=== PATIENT | male | born 1960 | race Caucasian/White ===

== ENCOUNTER 2017-12-23 19:13 | Emergency (ER) | payer OTHER, SELFPAY ==
[2017-12-23 19:20] VITALS: BP 152/80; PULSE 64; RESP 20; TEMP 36.4; O2SAT 100; BMI 27.1
--- NOTE | 2017-12-23 19:23 | ED_ITS ---
HPI - General Adult <KATERINA Condon - Last Filed: 12/23/17 22:36> General Chief complaint: Extremity Problem,Nontraumatic Stated complaint: Cramping, high blood sugar Time Seen by Provider: 12/23/17 19:19 History of Present Illness HPI narrative: 57-year-old male brought in by EMS due to having cramping to all 4 of his extremities earlier today. 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 Today he said they was a hard day at work. On route his cramping subsided. He denies any shortness of breath or chest pain. Patient states he actually feels better at this timeframe. He denies any other concerns or complaints other than have the cramping. He states he did have some water earlier today however he did not drink much fluid today. Related Data Previous Rx's Medication Instructions Recorded Glucose: Home Monitoring Kit 0 kit QID #1 ea 04/30/16 metformin [Glucophage] 500 mg PO BIDCC #60 tab 02/27/17 lisinopril 5 mg PO Q DAY #90 tab 04/02/17 Glucose: Test Strips 0 str #200 str 08/07/17 levofloxacin 750 mg PO QDAY #7 tab 08/11/17 levofloxacin 750 mg PO QDAY #5 tab 08/13/17 gabapentin [Neurontin] 300 - 600 mg PO BID #180 cap 08/20/17 levothyroxine 0.175 mg PO QAM #90 tab 08/24/17 insulin glargine [Lantus Solostar 45 unit SQ QDAY #1 syr 08/28/17 U-100 Insulin] [place] / SQ TID #1 09/15/17 insulin lispro [Humalog U-100 4 - 10 u SQ QID #1 box 10/07/17 Insulin] sertraline 100 mg PO QDAY #90 tab 10/21/17 simvastatin [Zocor] 20 mg PO HS #90 tab 10/22/17 gabapentin [Neurontin] 300 - 600 mg PO BID #180 cap 11/10/17 Allergies Allergy/AdvReac Type Severity Reaction Status Date / Time No Known Drug Allergies Allergy Verified 12/23/17 19:23 Review of Systems <KATERINA Condon - Last Filed: 12/23/17 22:36> Constitutional Denies chills, Denies fever(s), Denies lethargy and Denies weakness Eyes Denies change in vision, Denies eye discharge, Denies irritation and Denies loss of vision ENT Ears, Nose, Mouth, and Throat: Denies change in voice, Denies neck pain and Denies sore throat Cardiovascular Denies chest pain, Denies irregular heart rhythm, Denies lightheadedness, Denies palpitations, Denies dyspnea, Denies dyspnea on exertion and Denies orthopnea Respiratory Denies cough, Denies dyspnea, Denies dyspnea on exertion and Denies wheezing Gastrointestinal Gastrointestinal: Denies abdominal pain, Denies change in bowel habits, Denies diarrhea, Denies nausea and Denies vomiting Genitourinary Denies hematuria, Denies flank pain, Denies urinary incontinence and Denies urinary urgency Musculoskeletal Reports muscle cramps and Denies neck pain Integumentary/Breasts Denies pruritus, Denies erythema, Denies rash and Denies wounds Neurologic Denies confusion, Denies loss of vision and Denies weakness Psychiatric Denies anxiety, Denies confusion, Denies depression, Denies homicidal ideation and Denies suicidal ideation Endocrine Denies palpitations Allergic/Immunologic Denies wheezing Exam <KATERINA Condon - Last Filed: 12/23/17 22:36> Initial Vital Signs Initial Vital Signs: Vital Signs Temperature 97.6 F 12/23/17 19:20 Pulse Rate 64 12/23/17 19:20 Respiratory Rate 20 12/23/17 19:20 Blood Pressure 152/80 H 12/23/17 19:20 Pulse Oximetry 100 12/23/17 19:20 Const General: cooperative and well developed Nutritional Appearance: well nourished Orientation: alert, awake, oriented x3 and not confused [facility] Mouth: oral mucosae normal and moist mucous membranes Eyes Conjunctivae: conjunctivae normal Sclera: sclerae normal Pupils: PERRL Resp Effort & Inspection: normal respiratory effort, able to speak in complete sentences, no respiratory distress and no use of accessory muscles Auscultation: clear to auscultation bilaterally, no rales, no rhonchi and no wheezes Cardio Rate: regular rate Rhythm: regular rhythm Heart Sounds: no click, no gallops, no murmurs and no rubs Pulses: normal peripheral pulses Skin General: no rashes or lesions noted, No jaundice and No petechiae Extrem General: normal to inspection and full ROM Other: Distal sensation intact to all 4 extremities. Full range of motion all 4 extremities. Distal pulses intact <Cisco Sosa DO - Last Filed: 12/23/17 22:49> Initial Vital Signs Initial Vital Signs: Vital Signs Temperature 97.6 F 12/23/17 19:20 Pulse Rate 64 12/23/17 19:20 Respiratory Rate 20 12/23/17 19:20 Blood Pressure 152/80 H 12/23/17 19:20 Pulse Oximetry 100 12/23/17 19:20 Course <KATERINA Condon - Last Filed: 12/23/17 22:36> Orders Ordered: ED Orders 12/23/17 19:32 XR chest 1V Stat EKG-12 Lead Stat 12/23/17 19:40 CMP [Comprehensive Metabolic Panel] Stat Complete Blood Count AUTO DIFF Stat Lactate (Lactic Acid) Stat Troponin with CK Cardiac Panel Stat Vital Signs - 8 hr 12/23/17 19:20 12/23/17 20:46 12/23/17 21:38 Temperature 97.6 F Pulse Rate 64 73 77 Respiratory Rate 20 13 15 Blood Pressure 152/80 H Blood Pressure [Left Arm] 151/71 H 149/74 H Pulse Oximetry 100 100 100 12/23/17 21:59 Temperature Pulse Rate 64 Respiratory Rate 18 Blood Pressure 149/74 H Blood Pressure [Left Arm] Pulse Oximetry 99 <Cisco Sosa DO - Last Filed: 12/23/17 22:49> Orders Ordered: ED Orders 12/23/17 19:32 XR chest 1V Stat EKG-12 Lead Stat 12/23/17 19:40 CMP [Comprehensive Metabolic Panel] Stat Complete Blood Count AUTO DIFF Stat Lactate (Lactic Acid) Stat Troponin with CK Cardiac Panel Stat Vital Signs - 8 hr 12/23/17 19:20 12/23/17 20:46 12/23/17 21:38 Temperature 97.6 F Pulse Rate 64 73 77 Respiratory Rate 20 13 15 Blood Pressure 152/80 H Blood Pressure [Left Arm] 151/71 H 149/74 H Pulse Oximetry 100 100 100 12/23/17 21:59 Temperature Pulse Rate 64 Respiratory Rate 18 Blood Pressure 149/74 H Blood Pressure [Left Arm] Pulse Oximetry 99 Medical Decision Making <KATERINA Condon - Last Filed: 12/23/17 22:36> [facility] Narrative Medical decision making narrative: EKG was obtained and was negative for any acute findings. Chest x-ray was negative for any acute findings. CK CK-MB were slightly elevated. However CK-MB index was negative. Troponin was negative. CBC panel were obtained and were unremarkable. CMP shows hyperkalemia at 5.3. His GFR was down to 48 creatinine was slightly elevated at 1.2. Signs and symptoms presents as dehydration. Patient was given fluids in the emergency room any felt much better. He is encouraged to take it easy to Gerry drink plenty of fluids. Follow up with primary care provider in the next couple of days for re-evaluation. Lab Data Result diagrams: 12/23/17 19:40 12/23/17 19:40 Lab Results 12/23/17 12/23/17 12/23/17 Range/Units 19:40 19:40 19:40 WBC 13.1 H (4.5-11.0) X10^3/uL RBC 4.93 (4.5-5.9) X10^6/uL Hgb 15.1 (13.5-17.5) g/dL Hct 43.9 (41-53) % MCV 89.1 (80-100) fL MCH 30.6 (26-34) PG MCHC 34.4 (30-36) % RDW 12.7 (11.6-14.8) % Plt Count 292 (150-400) X10^3/uL Neut % (Auto) 70.2 (50-75) % Lymph % (Auto) 21.2 L (25-40) % [place] % (Auto) 6.2 (3-14) % Eos % (Auto) 1.4 L (2-4) % Baso % (Auto) 1.0 (0-2) % Neut # (Auto) 9200 H (6355-3627) /uL Sodium 139 (137-145) mmol/L Potassium 5.3 H (3.4-5.1) mmol/L Chloride 95 L (98-107) mmol/L Carbon Dioxide 27 (22-32) mmol/L BUN 37 H (9-20) mg/dL Creatinine 1.60 H (0.66-1.25) mg/dL Estimated GFR 44.6 L (>60) mL/min BUN/Creatinine Ratio 23.1 H (6-22) Glucose 223 H (70-100) mg/dL Lactate 2.3 H (0.7-2.1) mmol/L Calcium 10.5 H (8.4-10.2) mg/dL Total Bilirubin 0.6 (0.2-1.3) mg/dL AST 26 (17-59) IU/L ALT 28 (21-72) IU/L Alkaline Phosphatase 70 (38-126) U/L Total Creatine Kinase 258 H (55-170) U/L CK-MB (CK-2) 3.56 H (<2.37) ng/mL CK-MB (CK-2) Rel Index 1.4 L (1.5-5.0) % Troponin I < 0.012 (0.01-0.034) ng/mL Total Protein 8.2 (6.3-8.2) g/dL Albumin 4.9 (3.5-5.0) g/dL Globulin 3.3 (1.7-4.1) g/dL Albumin/Globulin Ratio 1.5 (1.0-2.8) <Cisco Sosa, DO - Last Filed: 12/23/17 22:49> Lab Data Lab Results 12/23/17 12/23/17 12/23/17 Range/Units 19:40 19:40 19:40 WBC 13.1 H (4.5-11.0) X10^3/uL RBC 4.93 (4.5-5.9) X10^6/uL Hgb 15.1 (13.5-17.5) g/dL Hct 43.9 (41-53) % MCV 89.1 (80-100) fL MCH 30.6 (26-34) PG MCHC 34.4 (30-36) % RDW 12.7 (11.6-14.8) % Plt Count 292 (150-400) X10^3/uL Neut % (Auto) 70.2 (50-75) % Lymph % (Auto) 21.2 L (25-40) % [place] % (Auto) 6.2 (3-14) % Eos % (Auto) 1.4 L (2-4) % Baso % (Auto) 1.0 (0-2) % Neut # (Auto) 9200 H (2574-0979) /uL Sodium 139 (137-145) mmol/L Potassium 5.3 H (3.4-5.1) mmol/L Chloride 95 L (98-107) mmol/L Carbon Dioxide 27 (22-32) mmol/L BUN 37 H (9-20) mg/dL Creatinine 1.60 H (0.66-1.25) mg/dL Estimated GFR 44.6 L (>60) mL/min BUN/Creatinine Ratio 23.1 H (6-22) Glucose 223 H (70-100) mg/dL Lactate 2.3 H (0.7-2.1) mmol/L Calcium 10.5 H (8.4-10.2) mg/dL Total Bilirubin 0.6 (0.2-1.3) mg/dL AST 26 (17-59) IU/L ALT 28 (21-72) IU/L Alkaline Phosphatase 70 (38-126) U/L Total Creatine Kinase 258 H (55-170) U/L CK-MB (CK-2) 3.56 H (<2.37) ng/mL CK-MB (CK-2) Rel Index 1.4 L (1.5-5.0) % Troponin I < 0.012 (0.01-0.034) ng/mL Total Protein 8.2 (6.3-8.2) g/dL Albumin 4.9 (3.5-5.0) g/dL Globulin 3.3 (1.7-4.1) g/dL Albumin/Globulin Ratio 1.5 (1.0-2.8) Discharge Plan Departure Patient Disposition: Home, Self-Care Clinical Impression: Dehydration Discharge Date/Time: 12/23/17 21:59 Interventions: ED Discharge Assessment Last Done: 12/23/17 21:59 Instructions: DI for Dehydration -- Adult Activity Restrictions/Additional Instructions: Laboratory results indicate dehydration. Injury drink plenty of fluids. Take it easy tomorrow try to rest. For any worsening symptoms such as generalized worsening pain having a hard time with urination or dark urine return to the emergency room. Follow up with her primary care provider in the next few days for re-evaluation. Prescriptions: No Action Glucose: Home Monitoring Kit QID Qty: 1 RF: 0 metformin [Glucophage] 500 MG tablet 500 mg PO BIDCC Qty: 60 RF: 3 lisinopril 5 MG tablet 5 mg PO Q DAY Qty: 90 RF: 3 Glucose: Test Strips Qty: 200 RF: 5 levofloxacin 750 MG tablet 750 mg PO QDAY Qty: 7 RF: 0 levofloxacin 750 MG tablet 750 mg PO QDAY Qty: 5 RF: 0 gabapentin [Neurontin] 300 MG capsule 300 - 600 mg PO BID Qty: 180 RF: 0 levothyroxine 175 MCG tablet 0.175 mg PO QAM Qty: 90 RF: 1 insulin glargine [Lantus Solostar U-100 Insulin] 100 UNIT/1 ML insulin pen 45 unit SQ QDAY Qty: 1 RF: 5 [place] SQ TID Qty: 1 RF: 0 insulin lispro [Humalog U-100 Insulin] 100 UNIT/1 ML cartridge 4 - 10 u SQ QID Qty: 1 RF: 6 sertraline 100 MG tablet 100 mg PO QDAY Qty: 90 RF: 0 simvastatin [Zocor] 20 MG tablet 20 mg PO HS Qty: 90 RF: 0 gabapentin [Neurontin] 300 MG capsule 300 - 600 mg PO BID Qty: 180 RF: 5 Referrals: Fred Taylor MD [Primary Care Provider] - <Cisco Sosa DO - Last Filed: 12/23/17 22:49> Cosign ED Attending Cosignature Attestation: I was available for consultation during this patient's emergency department encounter
--- NOTE | 2017-12-23 19:32 | DI.RAD.S_ITS ---
PROCEDURE: XR CHEST 1V INDICATIONS: 57 year-old male with fatigue and cramps. TECHNIQUE: One view of the chest was acquired. COMPARISON: [facility], , CHEST 2 VIEW, 08/09/2017, 9:19. [facility], , CHEST 1 VIEW, 03/09/2013, 9:21. [facility], , CHEST 1 VIEW, 07/07/2011, 11:24. FINDINGS: Surgical changes and devices: None. Lungs and pleura: No pleural effusions or pneumothorax. Lungs are clear, with interval resolution of left lung base pneumonia. Mediastinum: Mediastinal contours appear normal. Heart size is normal. Bones and chest wall: No suspicious bony lesions. Overlying soft tissues appear unremarkable. IMPRESSION: No acute cardiopulmonary disease. Dictated by: Samm Morris M.D. on 12/23/2017 at 19:58 Approved by: Samm Morris M.D. on 12/23/2017 at 19:59
--- NOTE | 2017-12-23 19:40 | PC.NURSE ---
PT states bi lat leg cramping and rib pain prior to arrival onset 1800 was working outside all day in heat doing heavy lifting. States cramping has subsided since arrival in ER and denies CP or SOB. Hx of DM type 1.
[2017-12-23 20:12] LABS: Lactate (Lactic Acid) 2.3 mmol/L (0.7-2.1)
[2017-12-23 20:14] LABS: Alanine Aminotransferase 28 IU/L (21-72); Albumin 4.9 g/dL (3.5-5.0); Albumin Globulin Ratio 1.5 (1.0-2.8); Alkaline Phosphatase 70 U/L (38-126); Aspartate Aminotransferase 26 IU/L (17-59); BUN Creatinine Ratio 23.1 (6-22); Bilirubin Total 0.6 mg/dL (0.2-1.3); Blood Urea Nitrogen 37 mg/dL (9-20); Calcium 10.5 mg/dL (8.4-10.2); Carbon Dioxide 27 mmol/L (22-32); Chloride 95 mmol/L (98-107); Creatine Kinase 258 U/L (55-170); Estimated Glomerular Filt Rate 44.6 mL/min (>60); Globulin 3.3 g/dL (1.7-4.1); Glucose 223 mg/dL (70-100); HEMOLYSIS < 15 (0-50); Potassium 5.3 mmol/L (3.4-5.1); Sodium 139 mmol/L (137-145); Total Protein 8.2 g/dL (6.3-8.2)
[2017-12-23 20:29] LABS: CKMB % Relative Index 1.4 % (1.5-5.0); Creatine Kinase MB 3.56 ng/mL (<2.37)
[2017-12-23 20:41] LABS: Troponin I < 0.012 ng/mL (0.01-0.034)
[2017-12-23 20:46] VITALS: BP 151/71; PULSE 73; RESP 13; O2SAT 100
[2017-12-23 20:53] LABS: Add Manual Diff / Slide Review NO; Eosinophils Percent Auto 1.4 % (2-4); Hematocrit 43.9 % (41-53); Hemoglobin 15.1 g/dL (13.5-17.5); Lymphocytes Percent Auto 21.2 % (25-40); Mean Corpuscular HGB Conc 34.4 % (30-36); Mean Corpuscular Hemoglobin 30.6 PG (26-34); Mean Corpuscular Volume 89.1 fL (80-100); Monocytes Percent Auto 6.2 % (3-14); Neutrophils Absolute Auto 9200 /uL (3000-5900); Neutrophils Percent Auto 70.2 % (50-75); Platelet Count 292 X10^3/uL (150-400); Red Blood Cell Count 4.93 X10^6/uL (4.5-5.9); Red Cell Distribution Width 12.7 % (11.6-14.8); White Blood Cell Count 13.1 X10^3/uL (4.5-11.0)
[2017-12-23 21:38] VITALS: BP 149/74; PULSE 77; RESP 15; O2SAT 100
[2017-12-23 21:59] VITALS: BP 149/74; PULSE 64; RESP 18; O2SAT 99
[2017-12-23 23:59] LABS: Reflexed Lactate in 2 Hours Y
== END 2017-12-23 21:59 | disposition home or self-care (01) ==
PROVIDERS: Emergency Medicine; Emergency Provider Nurse Practitioner Family; Family Provider Family Medicine; PCP Family Medicine
DX: E86.0 Dehydration (principal)
CPT/HCPCS: 36415; 71045; 80053; 82550; 82553; 83605; 84484; 85025; 93005; 99282; 99285

== ENCOUNTER → 2018-01-08 15:06 | Outpatient (CLI) | payer OTHER, SELFPAY ==
[2018-01-08 15:36] LABS: Hemoglobin A1C% w Est Avg Glu 10.4 % (4.0-6.0)
== END ==
PROVIDERS: Family Provider Family Medicine; PCP Family Medicine; Visit Provider Family Medicine
DX: E11.42 Type 2 diabetes mellitus with diabetic polyneuropathy (principal); Z79.4 Long term (current) use of insulin
CPT/HCPCS: 36415; 83036

== ENCOUNTER → 2018-03-23 08:22 | Outpatient (CLI) | payer OTHER, SELFPAY ==
[2018-03-23 09:09] LABS: Hemoglobin A1C% w Est Avg Glu 9.8 % (4.0-6.0)
[2018-03-23 10:31] LABS: Free T4, Direct Thyroxine 1.12 ng/dL (0.78-2.19); T4 Total Thyroxine 8.24 ug/dL (5.5-11.0)
[2018-03-23 10:44] LABS: Thyroid Stimulating Hormone 1.28 uIU/mL (0.47-4.68)
== END ==
PROVIDERS: PCP Family Medicine; Visit Provider Family Medicine
DX: E03.9 Hypothyroidism, unspecified (principal); E11.42 Type 2 diabetes mellitus with diabetic polyneuropathy; Z79.4 Long term (current) use of insulin
CPT/HCPCS: 36415; 83036; 84436; 84439; 84443

== ENCOUNTER → 2018-06-03 10:06 | Outpatient (CLI) | payer OTHER, SELFPAY ==
[2018-06-03 11:07] LABS: Creatinine Urine Random 198.5 mg/dL
[2018-06-03 11:11] LABS: Microalbumi Creatinin Ratio Ur 34.7 ug/mg CR (<30); Microalbumin Urine Random 6.9 mg/dL (0-1.6)
[2018-06-03 11:46] LABS: Vitamin D 25 Hydroxy (D3) 32.7 ng/mL (30.0-100.0)
[2018-06-03 12:20] LABS: Cholesterol 177 mg/dL (140-199); HDL Cholesterol 66 mg/dL (40-60); LDL Cholesterol Calculated 90 mg/dL (<100); Triglycerides 106 mg/dL (35-150)
[2018-06-03 15:21] LABS: Hemoglobin A1C% w Est Avg Glu 10.8 % (4.0-6.0)
== END ==
PROVIDERS: PCP Student in an Organized Health Care Education/Training Program; Visit Provider Student in an Organized Health Care Education/Training Program
DX: E11.42 Type 2 diabetes mellitus with diabetic polyneuropathy (principal); Z79.4 Long term (current) use of insulin; E78.00 Pure hypercholesterolemia, unspecified; Z86.39 Personal history of other endocrine, nutritional and metabolic disease; E55.9 Vitamin D deficiency, unspecified
CPT/HCPCS: 36415; 80061; 82043; 82306; 82570; 83036

== ENCOUNTER → 2019-08-11 09:29 | Outpatient (CLI) | payer MEDICARE, SELFPAY ==
[2019-08-11 10:43] LABS: Alanine Aminotransferase 16 IU/L (<50); Albumin 4.1 g/dL (3.5-5.0); Albumin Globulin Ratio 1.6 (1.0-2.8); Alkaline Phosphatase 50 U/L (38-126); Aspartate Aminotransferase 18 IU/L (17-59); Bilirubin Total 0.3 mg/dL (0.2-1.3); Blood Urea Nitrogen 20 mg/dL (9-20); Calcium 9.2 mg/dL (8.4-10.2); Carbon Dioxide 30 mmol/L (22-32); Chloride 101 mmol/L (98-107); Cholesterol 164 mg/dL (140-199); Estimated Glomerular Filt Rate > 60.0 mL/min (>60); Globulin 2.6 g/dL (1.7-4.1); Glucose 107 mg/dL (80-110); HDL Cholesterol 61 mg/dL (40-60); HEMOLYSIS < 15 (0-50); LDL Cholesterol Calculated 80 mg/dL (<100); Potassium 4.6 mmol/L (3.4-5.1); Sodium 137 mmol/L (137-145); Total Protein 6.7 g/dL (6.3-8.2); Triglycerides 116 mg/dL (35-150); VLDL Cholesterol Calculated 23 mg/dL (2-30)
[2019-08-11 15:15] LABS: Creatinine Urine Random 149.7 mg/dL
[2019-08-11 15:20] LABS: Microalbumin Urine Random 0.9 mg/dL (0-1.6)
== END ==
PROVIDERS: PCP Family Medicine; Visit Provider Family Medicine
DX: I10 Essential (primary) hypertension (principal); E11.42 Type 2 diabetes mellitus with diabetic polyneuropathy; Z79.4 Long term (current) use of insulin
CPT/HCPCS: 36415; 80053; 80061; 82043; 82570

== ENCOUNTER → 2020-02-01 08:22 | Outpatient (CLI) | payer MEDICARE, SELFPAY ==
[2020-02-01 09:29] LABS: Free T4, Direct Thyroxine 1.05 ng/dL (0.78-2.19)
== END ==
PROVIDERS: Referring Provider Family Medicine; Visit Provider Family Medicine
DX: E03.9 Hypothyroidism, unspecified (principal)
CPT/HCPCS: 36415; 84439; 84443

== ENCOUNTER → 2020-10-12 12:30 | Outpatient (CLI) | payer MEDICARE, SELFPAY ==
[2020-10-12] MEDS: COVID-19 VACC #1, MRNA(MOD) 100 MCG/0.5 ML VIAL IM (12:37)
== END ==
PROVIDERS: Visit Provider Internal Medicine
DX: Z23 Encounter for immunization (principal)
CPT/HCPCS: 0011A; 91301

== ENCOUNTER → 2020-11-09 12:30 | Outpatient (CLI) | payer MEDICARE, SELFPAY ==
[2020-11-09] MEDS: COVID-19 VACC #2, MRNA(MOD) 100 MCG/0.5 ML VIAL IM (12:39)
== END ==
PROVIDERS: Visit Provider Internal Medicine
DX: Z23 Encounter for immunization (principal)
CPT/HCPCS: 0012A; 91301

== ENCOUNTER → 2021-02-12 07:46 | Outpatient (CLI) | payer MEDICARE, SELFPAY ==
[2021-02-12 08:33] LABS: Add Manual Diff / Slide Review NO; Basophils Absolute Auto 100 /uL (0-100); Basophils Percent Auto 1.3 % (0-2); Eosinophils Absolute Auto 300 /uL (0-450); Eosinophils Percent Auto 5.2 % (2-4); Hematocrit 41.3 % (41-53); Hemoglobin 13.7 g/dL (13.5-17.5); Lymphocytes Absolute Auto 2000 /uL (1100-4500); Lymphocytes Percent Auto 32.8 % (25-40); Mean Corpuscular HGB Conc 33.3 % (30-36); Mean Corpuscular Hemoglobin 29.8 PG (26-34); Mean Corpuscular Volume 89.6 fL (80-100); Monocytes Absolute Auto 400 /uL (0-900); Monocytes Percent Auto 6.5 % (3-14); Neutrophils Absolute Auto 3400 /uL (1500-7000); Neutrophils Percent Auto 54.2 % (50-75); Platelet Count 263 X10^3/uL (150-400); Red Blood Cell Count 4.61 X10^6/uL (4.5-5.9); Red Cell Distribution Width 13.4 % (11.6-14.8); White Blood Cell Count 6.2 X10^3/uL (4.5-11.0)
[2021-02-12 09:03] LABS: Alanine Aminotransferase 24 IU/L (<50); Albumin 4.1 g/dL (3.5-5.0); Albumin Globulin Ratio 1.4 (1.0-2.8); Alkaline Phosphatase 58 U/L (38-126); Aspartate Aminotransferase 26 IU/L (17-59); BUN Creatinine Ratio 27.7 (6-22); Bilirubin Total 0.4 mg/dL (0.2-1.3); Blood Urea Nitrogen 23 mg/dL (9-20); Calcium 9.4 mg/dL (8.4-10.2); Carbon Dioxide 28 mmol/L (22-32); Chloride 104 mmol/L (98-107); Cholesterol 171 mg/dL (140-199); Estimated Glomerular Filt Rate > 60.0 mL/min (>60); Glucose 152 mg/dL (80-110); HDL Cholesterol 59 mg/dL (40-60); HEMOLYSIS < 15 (0-50); LDL Cholesterol Calculated 82 mg/dL (<100); Potassium 4.8 mmol/L (3.4-5.1); Sodium 138 mmol/L (137-145); Total Protein 7.1 g/dL (6.3-8.2); Triglycerides 151 mg/dL (35-150)
[2021-02-12 09:06] LABS: Creatinine Urine Random 124.9 mg/dL
[2021-02-12 09:19] LABS: Free T4, Direct Thyroxine 1.06 ng/dL (0.78-2.19)
[2021-02-12 09:25] LABS: Microalbumi Creatinin Ratio Ur 6.4 ug/mg CR (<30); Microalbumin Urine Random 0.8 mg/dL (0-1.6)
[2021-02-12 09:33] LABS: Thyroid Stimulating Hormone 1.14 uIU/mL (0.47-4.68)
== END ==
PROVIDERS: PCP Family Medicine; Referring Provider Family Medicine; Visit Provider Family Medicine
DX: E03.9 Hypothyroidism, unspecified (principal); E11.42 Type 2 diabetes mellitus with diabetic polyneuropathy; E78.00 Pure hypercholesterolemia, unspecified; Z79.4 Long term (current) use of insulin
CPT/HCPCS: 36415; 80053; 80061; 82043; 82570; 84439; 84443; 85025

== ENCOUNTER → 2022-04-02 15:18 | Outpatient (CLI) | payer MEDICARE, SELFPAY ==
--- NOTE | 2022-04-02 15:19 | DI.RAD.S_ITS ---
PROCEDURE: XR FOREARM LT 2V INDICATIONS: pitchfork puncture - r/o foreign bodies TECHNIQUE: 2 views of the forearm were acquired. COMPARISON: None. FINDINGS: Bones: No fractures or dislocations. No suspicious bony lesions. Soft tissues: No suspicious soft tissue calcifications or masses. No radiopaque foreign body. IMPRESSION: No radiopaque foreign body. Dictated by: Selina Contreras M.D. on 04/02/2022 at 15:54 Approved by: Selina Contreras M.D. on 04/02/2022 at 15:54
== END ==
PROVIDERS: PCP Family Medicine; Referring Provider Registered Nurse; Visit Provider Registered Nurse
DX: S59.912A Unspecified injury of left forearm, initial encounter (principal)
CPT/HCPCS: 73090

== ENCOUNTER → 2022-07-01 10:10 | Outpatient (CLI) | payer MEDICARE, SELFPAY ==
[2022-07-01 10:59] LABS: Add Manual Diff / Slide Review NO; Basophils Absolute Auto 100 /uL (0-100); Basophils Percent Auto 1.7 % (0-2); Eosinophils Absolute Auto 400 /uL (0-450); Eosinophils Percent Auto 6.8 % (2-4); Hematocrit 40.8 % (41-53); Hemoglobin 13.8 g/dL (13.5-17.5); Lymphocytes Absolute Auto 2200 /uL (1100-4500); Lymphocytes Percent Auto 36.7 % (25-40); Mean Corpuscular HGB Conc 33.8 % (30-36); Mean Corpuscular Hemoglobin 29.9 PG (26-34); Mean Corpuscular Volume 88.5 fL (80-100); Monocytes Absolute Auto 400 /uL (0-900); Monocytes Percent Auto 6.1 % (3-14); Neutrophils Absolute Auto 3000 /uL (1500-7000); Neutrophils Percent Auto 48.7 % (50-75); Platelet Count 235 X10^3/uL (150-400); Red Blood Cell Count 4.61 X10^6/uL (4.5-5.9); Red Cell Distribution Width 12.9 % (11.6-14.8); White Blood Cell Count 6.1 X10^3/uL (4.5-11.0)
[2022-07-01 11:31] LABS: Creatinine Urine Random 204.6 mg/dL
[2022-07-01 11:34] LABS: Microalbumi Creatinin Ratio Ur 4.3 ug/mg CR (<30); Microalbumin Urine Random 0.9 mg/dL (0-1.6)
[2022-07-01 11:40] LABS: Alanine Aminotransferase 21 IU/L (<50); Albumin 3.9 g/dL (3.5-5.0); Albumin Globulin Ratio 1.6 (1.0-2.8); Alkaline Phosphatase 68 U/L (38-126); Aspartate Aminotransferase 19 IU/L (17-59); Bilirubin Total 0.4 mg/dL (0.2-1.3); Blood Urea Nitrogen 19 mg/dL (9-20); Carbon Dioxide 30 mmol/L (22-32); Chloride 101 mmol/L (98-107); Cholesterol 172 mg/dL (140-199); Estimated Glomerular Filt Rate > 60 mL/min (>60); Globulin 2.4 g/dL (1.7-4.1); Glucose 132 mg/dL (80-110); HDL Cholesterol 71 mg/dL (40-60); HEMOLYSIS < 15 (0-50); LDL Cholesterol Calculated 81 mg/dL (<100); Potassium 4.9 mmol/L (3.4-5.1); Sodium 138 mmol/L (137-145); Total Protein 6.3 g/dL (6.3-8.2); Triglycerides 98 mg/dL (35-150)
[2022-07-01 11:57] LABS: Thyroid Stimulating Hormone 0.989 uIU/mL (0.47-4.68)
[2022-07-01 18:02] LABS: Free T4, Direct Thyroxine 1.61 ng/dL (0.78-2.19)
== END ==
PROVIDERS: PCP Family Medicine; Referring Provider Family Medicine; Visit Provider Family Medicine
DX: Z79.4 Long term (current) use of insulin (principal); E11.42 Type 2 diabetes mellitus with diabetic polyneuropathy; E03.9 Hypothyroidism, unspecified
CPT/HCPCS: 36415; 80053; 80061; 82043; 82570; 84439; 84443; 85025

== ENCOUNTER → 2023-07-22 08:52 | Outpatient (CLI) | payer MEDICARE, SELFPAY ==
[2023-07-22 09:38] LABS: Add Manual Diff / Slide Review NO; Basophils Absolute Auto 100 /uL (0-100); Eosinophils Absolute Auto 400 /uL (0-450); Eosinophils Percent Auto 7.1 % (2-4); Hematocrit 40.8 % (41-53); Hemoglobin 13.8 g/dL (13.5-17.5); Lymphocytes Absolute Auto 2200 /uL (1100-4500); Mean Corpuscular HGB Conc 33.7 % (30-36); Mean Corpuscular Hemoglobin 29.8 PG (26-34); Mean Corpuscular Volume 88.4 fL (80-100); Monocytes Absolute Auto 400 /uL (0-900); Monocytes Percent Auto 6.7 % (3-14); Neutrophils Absolute Auto 3000 /uL (1500-7000); Neutrophils Percent Auto 48.2 % (50-75); Platelet Count 255 X10^3/uL (150-400); Red Blood Cell Count 4.62 X10^6/uL (4.5-5.9); Red Cell Distribution Width 12.8 % (11.6-14.8); White Blood Cell Count 6.2 X10^3/uL (4.5-11.0)
[2023-07-22 10:05] LABS: Alanine Aminotransferase 19 IU/L (<50); Albumin Globulin Ratio 1.5 (1.0-2.8); Alkaline Phosphatase 68 U/L (38-126); Aspartate Aminotransferase 19 IU/L (17-59); Bilirubin Total 0.4 mg/dL (0.2-1.3); Blood Urea Nitrogen 26 mg/dL (9-20); Calcium 9.4 mg/dL (8.4-10.2); Carbon Dioxide 27 mmol/L (22-32); Chloride 100 mmol/L (98-107); Cholesterol 175 mg/dL (140-199); Estimated Glomerular Filt Rate > 60 mL/min (>60); Globulin 2.7 g/dL (1.7-4.1); Glucose 221 mg/dL (80-110); HDL Cholesterol 59 mg/dL (40-60); HEMOLYSIS < 15 (0-50); LDL Cholesterol Calculated 80 mg/dL (<100); Potassium 4.7 mmol/L (3.4-5.1); Sodium 134 mmol/L (137-145); Total Protein 6.7 g/dL (6.3-8.2); Triglycerides 179 mg/dL (35-150)
[2023-07-22 14:45] LABS: Free T4, Direct Thyroxine 1.59 ng/dL (0.78-2.19)
[2023-07-22 14:59] LABS: Thyroid Stimulating Hormone 0.029 uIU/mL (0.47-4.68)
== END ==
PROVIDERS: PCP Family Medicine; Referring Provider Family Medicine; Visit Provider Family Medicine
DX: I10 Essential (primary) hypertension (principal); E03.9 Hypothyroidism, unspecified
CPT/HCPCS: 36415; 80053; 80061; 84439; 84443; 85025

== ENCOUNTER → 2023-12-02 08:15 | Outpatient (CLI) | payer MEDICARE, SELFPAY ==
[2023-12-02 09:15] LABS: Free T4, Direct Thyroxine 1.29 ng/dL (0.78-2.19)
[2023-12-02 09:29] LABS: Thyroid Stimulating Hormone 0.417 uIU/mL (0.47-4.68)
== END ==
PROVIDERS: PCP Family Medicine; Referring Provider Family Medicine; Visit Provider Family Medicine
DX: E03.9 Hypothyroidism, unspecified (principal)
CPT/HCPCS: 36415; 84439; 84443

== ENCOUNTER → 2024-01-11 08:38 | Outpatient (CLI) | payer MEDICARE, SELFPAY | PROVIDERS: PCP Family Medicine; Referring Provider Podiatrist; Visit Provider Surgery | DX: E11.621 Type 2 diabetes mellitus with foot ulcer (principal); E11.42 Type 2 diabetes mellitus with diabetic polyneuropathy; L97.512 Non-pressure chronic ulcer of other part of right foot with fat layer exposed; L84 Corns and callosities; R23.3 Spontaneous ecchymoses; I10 Essential (primary) hypertension | CPT/HCPCS: 11042; 87070; 87077; 87147; 87186; 87205; 99203; 99214 ==

== ENCOUNTER → 2024-01-11 09:54 | Outpatient (CLI) | payer MEDICARE, SELFPAY ==
[2024-01-11 11:04] LABS: Add Manual Diff / Slide Review NO; Basophils Absolute Auto 100 /uL (0-100); Basophils Percent Auto 1.4 % (0-2); Eosinophils Absolute Auto 300 /uL (0-450); Eosinophils Percent Auto 3.6 % (2-4); Hematocrit 39.5 % (41-53); Hemoglobin 13.3 g/dL (13.5-17.5); Lymphocytes Absolute Auto 2500 /uL (1100-4500); Mean Corpuscular HGB Conc 33.8 % (30-36); Mean Corpuscular Hemoglobin 30.2 PG (26-34); Mean Corpuscular Volume 89.4 fL (80-100); Monocytes Absolute Auto 400 /uL (0-900); Monocytes Percent Auto 5.4 % (3-14); Neutrophils Absolute Auto 4300 /uL (1500-7000); Neutrophils Percent Auto 56.6 % (50-75); Platelet Count 291 X10^3/uL (150-400); Red Blood Cell Count 4.42 X10^6/uL (4.5-5.9); Red Cell Distribution Width 13.2 % (11.6-14.8); White Blood Cell Count 7.5 X10^3/uL (4.5-11.0)
[2024-01-11 11:16] LABS: Hemoglobin A1C% w Est Avg Glu 8.9 % (4.0-6.0)
[2024-01-11 11:29] LABS: Alanine Aminotransferase 17 IU/L (<50); Albumin 4.1 g/dL (3.5-5.0); Albumin Globulin Ratio 1.6 (1.0-2.8); Alkaline Phosphatase 67 U/L (38-126); Aspartate Aminotransferase 22 IU/L (17-59); BUN Creatinine Ratio 21.4 (6-22); Bilirubin Total 0.5 mg/dL (0.2-1.3); Blood Urea Nitrogen 21 mg/dL (9-20); C-Reactive Protein Quant < 0.5 mg/dL (<1.0); Calcium 8.8 mg/dL (8.4-10.2); Carbon Dioxide 28 mmol/L (22-32); Chloride 106 mmol/L (98-107); Estimated Glomerular Filt Rate > 60 mL/min (>60); Globulin 2.6 g/dL (1.7-4.1); Glucose 58 mg/dL (80-110); HEMOLYSIS < 15 (0-50); Sodium 139 mmol/L (137-145); Total Protein 6.7 g/dL (6.3-8.2)
[2024-01-11 11:45] LABS: Erythrocyte Sedimentation Rate 10 MM/HR (0-15)
== END ==
PROVIDERS: PCP Family Medicine; Referring Provider Surgery; Visit Provider Surgery
DX: E11.621 Type 2 diabetes mellitus with foot ulcer (principal); E11.42 Type 2 diabetes mellitus with diabetic polyneuropathy; L97.512 Non-pressure chronic ulcer of other part of right foot with fat layer exposed; L84 Corns and callosities; R23.3 Spontaneous ecchymoses; I10 Essential (primary) hypertension
CPT/HCPCS: 11042; 36415; 80053; 83036; 85025; 85651; 86140; 87070; 87077; 87147; 87186; 87205; 99214

== ENCOUNTER → 2024-01-18 09:56 | Outpatient (CLI) | payer MEDICARE, SELFPAY | PROVIDERS: PCP Family Medicine; Referring Provider Podiatrist; Visit Provider Surgery | DX: E11.621 Type 2 diabetes mellitus with foot ulcer (principal); E11.42 Type 2 diabetes mellitus with diabetic polyneuropathy; L97.512 Non-pressure chronic ulcer of other part of right foot with fat layer exposed; L84 Corns and callosities; I10 Essential (primary) hypertension; Z87.891 Personal history of nicotine dependence | CPT/HCPCS: 11042 ==

== ENCOUNTER → 2024-01-25 09:14 | Outpatient (CLI) | payer MEDICARE, SELFPAY | PROVIDERS: PCP Family Medicine; Referring Provider Podiatrist; Visit Provider Surgery | DX: E11.621 Type 2 diabetes mellitus with foot ulcer (principal); E11.42 Type 2 diabetes mellitus with diabetic polyneuropathy; L97.512 Non-pressure chronic ulcer of other part of right foot with fat layer exposed; L84 Corns and callosities; Z87.891 Personal history of nicotine dependence | CPT/HCPCS: 11042 ==

== ENCOUNTER → 2024-02-01 10:14 | Outpatient (CLI) | payer MEDICARE, SELFPAY | PROVIDERS: PCP Family Medicine; Referring Provider Family Medicine; Visit Provider Surgery | DX: E11.621 Type 2 diabetes mellitus with foot ulcer (principal); E11.42 Type 2 diabetes mellitus with diabetic polyneuropathy; L97.512 Non-pressure chronic ulcer of other part of right foot with fat layer exposed; L84 Corns and callosities; Z87.891 Personal history of nicotine dependence | CPT/HCPCS: 11042 ==

== ENCOUNTER → 2024-02-08 09:17 | Outpatient (CLI) | payer MEDICARE, SELFPAY | PROVIDERS: PCP Family Medicine; Referring Provider Podiatrist; Visit Provider Surgery | DX: E11.621 Type 2 diabetes mellitus with foot ulcer (principal); E11.42 Type 2 diabetes mellitus with diabetic polyneuropathy; L97.512 Non-pressure chronic ulcer of other part of right foot with fat layer exposed; L84 Corns and callosities; I10 Essential (primary) hypertension | CPT/HCPCS: 11042; 99213 ==

== ENCOUNTER → 2024-02-15 08:36 | Outpatient (CLI) | payer MEDICARE, SELFPAY | LOC: WC 08:37 | PROVIDERS: PCP Family Medicine; Referring Provider Podiatrist; Visit Provider Surgery | DX: E11.621 Type 2 diabetes mellitus with foot ulcer (principal); E11.42 Type 2 diabetes mellitus with diabetic polyneuropathy; L97.512 Non-pressure chronic ulcer of other part of right foot with fat layer exposed; L84 Corns and callosities; Z87.891 Personal history of nicotine dependence | CPT/HCPCS: 11042 ==

== ENCOUNTER → 2024-02-29 13:14 | Outpatient (CLI) | payer MEDICARE, SELFPAY | LOC: WC 13:14 | PROVIDERS: PCP Family Medicine; Referring Provider Podiatrist; Visit Provider Surgery | DX: E11.621 Type 2 diabetes mellitus with foot ulcer (principal); E11.42 Type 2 diabetes mellitus with diabetic polyneuropathy; L97.512 Non-pressure chronic ulcer of other part of right foot with fat layer exposed; L84 Corns and callosities; R23.4 Changes in skin texture | CPT/HCPCS: 11042 ==

== ENCOUNTER → 2024-03-07 09:56 | Outpatient (CLI) | payer MEDICARE, SELFPAY | LOC: WC 09:56 | PROVIDERS: PCP Family Medicine; Referring Provider Podiatrist; Visit Provider Surgery | DX: E11.621 Type 2 diabetes mellitus with foot ulcer (principal); E11.42 Type 2 diabetes mellitus with diabetic polyneuropathy; L97.512 Non-pressure chronic ulcer of other part of right foot with fat layer exposed; R23.4 Changes in skin texture | CPT/HCPCS: 11042 ==

== ENCOUNTER → 2024-03-14 08:44 | Outpatient (CLI) | payer MEDICARE, SELFPAY | LOC: WC 08:45 | PROVIDERS: PCP Family Medicine; Referring Provider Family Medicine; Visit Provider Surgery | DX: E11.621 Type 2 diabetes mellitus with foot ulcer (principal); L97.512 Non-pressure chronic ulcer of other part of right foot with fat layer exposed; L84 Corns and callosities; E11.42 Type 2 diabetes mellitus with diabetic polyneuropathy; R23.4 Changes in skin texture | CPT/HCPCS: 11042; 99213 ==

== ENCOUNTER 2024-04-21 17:12 | Inpatient (IN) | payer MEDICARE, SELFPAY ==
[2024-04-21] VITALS (10 sets, daily range): BP systolic 154–188; BP diastolic 65–87; PULSE 58–79; RESP 16–18; TEMP 36.3–37.1; O2SAT 97–100; BMI 28.5
--- NOTE | 2024-04-21 17:57 | DI.RAD.S_ITS ---
PROCEDURE: XR FOOT RT MIN 3V INDICATIONS: diabetic foot ulcer TECHNIQUE: 3 views of the foot were acquired. COMPARISON: None. FINDINGS: Bones: Irregularity of the medial distal aspect of the 1st proximal phalanx with a small area of cortical destruction.. No suspicious bony lesions. Soft tissues: No tibiotalar joint effusion. Achilles tendon appears normal. Atherosclerotic vascular calcifications. Skin defect noted along the medial aspect of the first phalanx. IMPRESSION: Irregularity of the distal aspect of the 1st proximal phalanx medially with a small area of cortical destruction. Findings are concerning for osteomyelitis. Dictated by: Robert Serrano M.D. on 04/21/2024 at 18:26 Approved by: Robert Serrano M.D. on 04/21/2024 at 18:28
--- NOTE | 2024-04-21 18:00 | DI.RAD.S_ITS ---
PROCEDURE: XR CHEST 1V INDICATIONS: Shortness of breath TECHNIQUE: One view of the chest was acquired. COMPARISON: [facility], , XR CHEST 1V, 12/23/2017, 19:36. [facility], , CHEST 2 VIEW, 08/09/2017, 9:19. FINDINGS: Surgical changes and devices: None. Lungs and pleura: Lungs are clear. No pleural effusions or pneumothorax. Mediastinum: Mediastinal contours appear normal. Heart size is normal. Bones and chest wall: No suspicious bony lesions. Overlying soft tissues appear unremarkable. IMPRESSION: No acute cardiopulmonary abnormality is seen. Dictated by: Robert Serrano M.D. on 04/21/2024 at 18:25 Approved by: Robert Serrano M.D. on 04/21/2024 at 18:26
--- NOTE | 2024-04-21 19:16 | PC.NURSE ---
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 Seen today at Clinic and concern for Osteomelytis. This provider reached out to ER today and gave his contact information if ER provider would like to reach out for more information. Dr. Flores can be reached at [phone] for consult if needed
--- NOTE | 2024-04-21 19:37 | ED_ITS ---
HPI - Extremity Injury (Lower) General Chief Complaint: Extremity Injury, Lower Stated Complaint: diabetic infected foot wound, sent by PCP Time Seen by Provider: 04/21/24 19:29 Source: patient Mode of arrival: Ambulatory Limitations: no limitations History of Present Illness HPI Narrative: Patient is a 64-year-old male who was sent to the emergency department by his survey compiler for evaluation of potential osteomyelitis. He was in his independent diabetic. Has been seeing wound care for wounds on his right foot. Initially had a wound on the little toe of his right foot that has actually healed. Several weeks ago he tried to clip a area of callus off of his right great toe. Ever since then has had increasing redness and pain to this area. Had a follow- up with his survey compiler earlier today in the drained and debrided and area to the right great toe. He states that afterwards the pain greatly improved. He stated that they had x-rays performed. There was concern about a bone infection. Was advised to go to [facility] for further evaluation however patient and decided to present to this emergency department. Denies fevers. Related Data Home Medications Medication Instructions Recorded Confirmed levothyroxine 150 mcg tablet 150 mcg PO DAILY 04/11/24 04/21/24 gabapentin 300 mg capsule 300 mg PO QAM 04/21/24 04/21/24 (Neurontin) gabapentin 600 mg tablet 600 mg PO BEDTIME 04/21/24 04/21/24 Previous Rx's Medication Instructions Recorded Glucose: Home Monitoring Kit 0 kit QID #1 ea 04/30/16 simvastatin 20 mg tablet (Zocor) 20 mg PO HS #90 tabs 06/09/18 Glucose: Test Strips #200 ea 09/09/18 lisinopril 20 mg tablet 20 mg PO Q DAY #90 tabs 06/07/19 sertraline 100 mg tablet 100 mg PO QDAY #90 tabs 07/21/19 metformin 1,000 mg tablet 1,000 mg PO BID #180 tabs 04/14/24 pioglitazone 15 mg tablet (Actos) 15 mg PO DAILY #90 tabs 04/14/24 pen needle, diabetic 31 gauge x #100 ea 04/15/2412/09 (Pen Needle) Allergies Allergy/AdvReac Type Severity Reaction Status Date / Time No Known Drug Allergies Allergy Verified 04/11/24 09:08 Review of Systems Review of Systems ROS Unobtainable: All systems reviewed & are unremarkable except as noted in HPI and below Patient History Medical History Family history of colon cancer Depression Colon polyps (06/10/17) Diabetic polyneuropathy (09/24/17) Chronic fatigue Hypercholesterolemia Hypertension Hypothyroidism Diabetes (~1997) Surgical History History of colonoscopy with polypectomy (06/10/17) Family History Brother No problems noted. Father Respiratory disease Mother Colon cancer Sister No problems noted. Family/Other No problems noted. Family/Other No problems noted. Social History marital status: household members: spouse Smoking Status: Former smoker Smoking Status: Former smoker Substance Use Type: marijuana Exam Initial Vital Signs Initial Vital Signs: Vital Signs Temperature 98.7 F 04/21/24 17:43 Pulse Rate 63 04/21/24 17:43 Respiratory Rate 16 04/21/24 17:43 Blood Pressure 187/83 H 04/21/24 17:43 Pulse Oximetry 99 04/21/24 17:43 Oxygen Delivery Method Room Air 04/21/24 17:43 HENWV Head: normal to inspection and normocephalic Resp Effort & Inspection: normal respiratory effort Cardio Rate: regular rate Skin Other: Patient has a well demarcated wound in the medial aspect of the right great toe. Approximately 4 cm x 3 cm. Minimal surrounding erythema. Neuro General: patient alert, patient awake and moves all extremities Extrem Other: Wound to the medial aspect of the right great toe. Course Orders Ordered: ED Orders 04/21/24 17:57 XR foot RT min 3V Stat 04/21/24 18:00 XR chest 1V Stat 04/21/24 19:50 C-Reactive Protein Quant Stat Complete Blood Count AUTO DIFF Stat Comprehensive Metabolic Panel Stat Erythrocyte Sedimentation Rate Stat Lactate (Lactic Acid) Stat Lipase Stat NT-proBNP (BNP-Adult 18+) Stat Procalcitonin Stat Prothrombin Time INR Stat Troponin I Stat 04/21/24 21:13 Consult to Orthopedic Surgery Stat 04/21/24 21:15 Wound Culture and Gram Stain Stat 04/21/24 21:33 Education, smoking cessation ONGOING 04/21/24 21:38 Consult to Occupational Therapy Evaluate & Treat Consult to Physical Therapy Evaluate & Treat Acetaminophen (Acetaminophen 325 Mg Tablet) 650 mg PO Q6H PRN PRN Reason: Fever/Mild Pain (1-3) Hydrocodone Bitart/Acetaminophen (Hydrocodone/Acet 5/325 Tablet) 2 tab PO Q4H PRN PRN Reason: Pain, Severe (7-10) Heparin Sodium (Porcine) (Heparin 5,000 Unit/Ml Vial) 5,000 unit SUBCUT BID AISHWARYA Sodium Chloride (Normal Saline 0.9%) 1,000 mls @ 100 mls/hr IV CONT AISHWARYA Piperacillin Sod/Tazobactam (Sod 3.375 gm/ Sodium Chloride) 100 mls @ 25 mls/hr IV Q8H AISHWARYA Dextrose (D10w) 100 mls @ 999 mls/hr IV PRN PRN PRN Reason: Hypoglycemia Vancomycin HCl/Dextrose (Vancomycin) 1,500 mg in 300 mls @ 200 mls/hr IV Q12H [facility] Insulin Glargine (Insulin Glargine 100 Unit/Ml 3ml Pen) 60 unit SUBCUT BEDTIME AISHWARYA Last Admin: 04/21/24 21:57 Dose: 60 unit Documented By: LYSSA Co-signed By: MIRTHA Insulin Glargine (Insulin Glargine 100 Unit/Ml 3ml Pen) 60 unit SUBCUT 0800 [facility] Insulin Human Lispro (Insulin Lispro 100 Unit/Ml 3ml Vial) 0 unit SUBCUT ACHS AISHWARYA; Protocol Naloxone HCl (Naloxone 0.4 Mg/Ml Vial) 0.2 mg IV Q2MIN PRN PRN Reason: Opiate Reversal Ondansetron HCl (Ondansetron 4 Mg/2 Ml Inj) 4 mg IV Q8HR PRN PRN Reason: Nausea And Vomiting Vancomycin HCl (Vancomycin Per Pharmacy) 1 request MISC NOW PRN PRN Reason: foot infection Discontinued Medications Sodium Chloride (Normal Saline 0.9%) 1,000 mls @ 1,000 mls/hr IV BOLUS ONE Stop: 04/21/24 22:34 Last Admin: 04/21/24 21:46 Dose: 1,000 mls/hr Documented By: LYSSA Piperacillin Sod/Tazobactam (Sod 4.5 gm/ Sodium Chloride) 100 mls @ 200 mls/hr IV NOW ONE Stop: 04/21/24 21:36 Last Infusion: 04/21/24 22:15 Dose: 0 mls/hr Documented By: Admin: 04/21/24 21:46 Dose: 200 mls/hr Documented By: LYSSA Vancomycin HCl (Vancomycin) 1,000 mg in 200 mls @ 200 mls/hr IV NOW ONE Stop: 04/21/24 22:34 Last Admin: 04/21/24 22:04 Dose: 200 mls/hr Documented By: LYSSA Vancomycin HCl (Vancomycin) 1,000 mg in 200 mls @ 200 mls/hr IV NOW ONE Stop: 04/21/24 22:59 Insulin Human Regular (Insulin Regular 100 Unit/Ml 3 Ml Vial) 12 unit SUBCUT NOW ONE Stop: 04/21/24 21:37 Last Admin: 04/21/24 22:33 Dose: 12 unit Documented By: LYSSA Co-signed By: Vital Signs Vital signs: Vital Signs - 8 hr 04/21/24 17:43 04/21/24 19:55 04/21/24 19:55 Temperature 98.7 F Pulse Rate 63 77 Respiratory Rate 16 Blood Pressure 187/83 H 162/71 H Pulse Oximetry 99 98 Oxygen Delivery Method Room Air Room Air 04/21/24 20:00 04/21/24 20:30 04/21/24 21:00 Temperature Pulse Rate 79 75 74 Respiratory Rate Blood Pressure Pulse Oximetry 97 98 99 Oxygen Delivery Method 04/21/24 21:30 Temperature Pulse Rate 67 Respiratory Rate Blood Pressure Pulse Oximetry 99 Oxygen Delivery Method MDM - Extremity Injury (Lower) Lab Data Attestation: I reviewed the patient's lab results. 04/21/24 19:50 04/21/24 19:50 Labs: Lab Results 04/21/24 Range/Units 19:50 WBC 11.8 H (4.5-11.0) X10^3/uL RBC 4.51 (4.5-5.9) X10^6/uL Hgb 13.4 L (13.5-17.5) g/dL Hct 40.9 L (41-53) % MCV 90.6 (80-100) fL MCH 29.7 (26-34) PG MCHC 32.8 (30-36) % RDW 13.1 (11.6-14.8) % Plt Count 280 (150-400) X10^3/uL Neut % (Auto) 82.7 H (50-75) % Lymph % (Auto) 11.0 L (25-40) % [place] % (Auto) 4.4 (3-14) % Eos % (Auto) 0.9 L (2-4) % Baso % (Auto) 1.0 (0-2) % Neut # (Auto) 9700 H (7869-5593) /uL Lymph # (Auto) 1300 (7154-0213) /uL [place] # (Auto) 500 (0-900) /uL Eos # (Auto) 100 (0-450) /uL Baso # (Auto) 100 (0-100) /uL ESR 19 H (0-15) MM/HR PT 11.1 (9.4-12.5) SECONDS INR 1.0 (0.9-1.3) Sodium 131 L (137-145) mmol/L Potassium 5.7 H (3.4-5.1) mmol/L Chloride 95 L (98-107) mmol/L Carbon Dioxide 29 (22-32) mmol/L BUN 29 H (9-20) mg/dL Creatinine 1.05 (0.66-1.25) mg/dL Estimated GFR > 60 (>60) mL/min BUN/Creatinine Ratio 27.6 H (6-22) Glucose 497 H* (80-110) mg/dL Lactate 1.1 (0.7-2.1) mmol/L Calcium 9.2 (8.4-10.2) mg/dL Total Bilirubin 0.6 (0.2-1.3) mg/dL AST 20 (17-59) IU/L ALT 18 (<50) IU/L Alkaline Phosphatase 75 (38-126) U/L Troponin I < 0.012 (0.01-0.034) ng/mL C-Reactive Protein 3.4 H (<1.0) mg/dL NT-Pro-B Natriuret Pep 32 (<125) pg/mL Total Protein 7.2 (6.3-8.2) g/dL Albumin 4.4 (3.5-5.0) g/dL Globulin 2.8 (1.7-4.1) g/dL Albumin/Globulin Ratio 1.6 (1.0-2.8) Lipase 175 (23-300) U/L Procalcitonin 0.078 (<0.5) ng/mL Point of Care Testing Glucose POC 386 Imaging Data Extremity x-ray #1: Radiologist's Impression: PROCEDURE: XR FOOT RT MIN 3V INDICATIONS: diabetic foot ulcer TECHNIQUE: 3 views of the foot were acquired. COMPARISON: None. FINDINGS: Bones: Irregularity of the medial distal aspect of the 1st proximal phalanx with a small area of cortical destruction.. No suspicious bony lesions. Soft tissues: No tibiotalar joint effusion. Achilles tendon appears normal. Atherosclerotic vascular calcifications. Skin defect noted along the medial aspect of the first phalanx. IMPRESSION: Irregularity of the distal aspect of the 1st proximal phalanx medially with a small area of cortical destruction. Findings are concerning for osteomyelitis. Chest x-ray: Radiologist's Impression: PROCEDURE: XR CHEST 1V INDICATIONS: Shortness of breath TECHNIQUE: One view of the chest was acquired. COMPARISON: [facility], , XR CHEST 1V, 12/23/2017, 19:36. [facility], , CHEST 2 VIEW, 08/09/2017, 9:19. FINDINGS: Surgical changes and devices: None. Lungs and pleura: Lungs are clear. No pleural effusions or pneumothorax. Mediastinum: Mediastinal contours appear normal. Heart size is normal. Bones and chest wall: No suspicious bony lesions. Overlying soft tissues appear unremarkable. IMPRESSION: No acute cardiopulmonary abnormality is seen. MDM Narrative Medical decision making narrative: Patient has a slight leukocytosis. Elevation in his ESR and CRP. X-ray shows findings that are concerning for osteomyelitis. He was also hyperglycemic. I discussed the case with Dr. Caraballo on-call for Orthopedic surgery who recommended the patient be admitted to the medicine service. She was evaluate the patient tomorrow to come up with a plan about further evaluation to include an MRI. A culture was obtained of the wound. Was started on antibiotics. Discussed the case with Dr. Gonzales hospitalist on-call who will admit. Discussed the need for admission with the patient and his . They expressed understanding and agreement with plan. Discharge Plan Departure Patient Disposition: Admitted As Inpatient Clinical Impression: Osteomyelitis, Diabetes Admit Date/Time: 04/21/24 21:35 Admit Provider: Frankie Gonzales
--- NOTE | 2024-04-21 19:46 | P.CALLCOV_ITS ---
Call Coverage Note Note Narrative of Care Provided: Patient returned to my podiatry office after missing follow-up last month due to unforeseen and unfortunate social circumstances in family. Severe abscess was noted and evacuated with wound culture taken. Patient demonstrated evidence of constitutional symptoms as well. Recommendation was made for admission to hospital for IV antibiotics and further work-up, including MRI to r/o osteomyelitis. I will provide inpatient surgical/consult care, including limb s alvage procedures as necessary. Please call/text Dr. Nahum Flores for related questions. Appreciate cooperative efforts.
[2024-04-21 20:02] LABS: Add Manual Diff / Slide Review NO; Basophils Absolute Auto 100 /uL (0-100); Eosinophils Absolute Auto 100 /uL (0-450); Eosinophils Percent Auto 0.9 % (2-4); Hematocrit 40.9 % (41-53); Hemoglobin 13.4 g/dL (13.5-17.5); Lymphocytes Absolute Auto 1300 /uL (1100-4500); Mean Corpuscular HGB Conc 32.8 % (30-36); Mean Corpuscular Hemoglobin 29.7 PG (26-34); Mean Corpuscular Volume 90.6 fL (80-100); Monocytes Absolute Auto 500 /uL (0-900); Monocytes Percent Auto 4.4 % (3-14); Neutrophils Absolute Auto 9700 /uL (1500-7000); Neutrophils Percent Auto 82.7 % (50-75); Platelet Count 280 X10^3/uL (150-400); Red Blood Cell Count 4.51 X10^6/uL (4.5-5.9); Red Cell Distribution Width 13.1 % (11.6-14.8); White Blood Cell Count 11.8 X10^3/uL (4.5-11.0)
[2024-04-21 20:15] LABS: Prothrombin Time 11.1 SECONDS (9.4-12.5)
[2024-04-21 20:20] LABS: Lactate (Lactic Acid) 1.1 mmol/L (0.7-2.1)
[2024-04-21 20:21] LABS: Alanine Aminotransferase 18 IU/L (<50); Albumin 4.4 g/dL (3.5-5.0); Albumin Globulin Ratio 1.6 (1.0-2.8); Alkaline Phosphatase 75 U/L (38-126); Aspartate Aminotransferase 20 IU/L (17-59); BUN Creatinine Ratio 27.6 (6-22); Bilirubin Total 0.6 mg/dL (0.2-1.3); Blood Urea Nitrogen 29 mg/dL (9-20); Calcium 9.2 mg/dL (8.4-10.2); Carbon Dioxide 29 mmol/L (22-32); Chloride 95 mmol/L (98-107); Estimated Glomerular Filt Rate > 60 mL/min (>60); Globulin 2.8 g/dL (1.7-4.1); HEMOLYSIS < 15 (0-50); Sodium 131 mmol/L (137-145); Total Protein 7.2 g/dL (6.3-8.2)
[2024-04-21 20:22] LABS: Erythrocyte Sedimentation Rate 19 MM/HR (0-15)
[2024-04-21 20:23] LABS: Potassium 5.7 mmol/L (3.4-5.1)
[2024-04-21 20:25] LABS: C-Reactive Protein Quant 3.4 mg/dL (<1.0); Glucose 497 mg/dL (80-110); Lipase 175 U/L (23-300)
[2024-04-21 20:32] LABS: NT-proBNP (BNP-Adult 18+) 32 pg/mL (<125); Troponin I < 0.012 ng/mL (0.01-0.034)
[2024-04-21 20:38] LABS: Procalcitonin 0.078 ng/mL (<0.5)
[2024-04-21] MEDS: SODIUM CHLORIDE 0.9% 1,000 ML 1000 ML IV (21:46)
[2024-04-21] MEDS: PIPERACILLIN/TAZO 4.5 GM in SODIUM CHLORIDE 0.9% 100 ML IV (21:46)
[2024-04-21] MEDS: INSULIN GLARGINE 100 UNIT/ML 3ML PEN 60 UNIT SUBCUT (21:57)
[2024-04-21] MEDS: VANCOMYCIN 1,000 MG/200 ML PIGGYBACK 200 MG IV (22:04)
[2024-04-21] MEDS: INSULIN REGULAR 100 UNIT/ML 3 ML VIAL 12 UNIT SUBCUT (22:33)
[2024-04-22] VITALS (7 sets, daily range): BP systolic 110–169; BP diastolic 56–70; PULSE 65–75; RESP 18–22; TEMP 36.1–36.9; O2SAT 92–99
[2024-04-22] MEDS: PIPERACILLIN/TAZO 3.375 GM in SODIUM CHLORIDE 0.9% 100 ML IV ×3 (03:47→20:55)
--- NOTE | 2024-04-22 03:47 | PM.HP.1 ---
History of Present Illness History of Present Illness Chief complaint: diabetic infected foot wound, sent by PCP Narrative: 64-year-old male with past medical history of insulin-dependent diabetes, hyperlipidemia, hypertension, hypothyroidism, depression and chronic right foot infection presents with worsening right foot infection. Per the patient report, the patient was recently seen by podiatry as outpatient for his right great toe ulcer. The patient had debridement as outpatient with possible abscess. Podiatry however sent the patient to our ER due to concern of underlying osteomyelitis. The patient admit to have some pain in his right foot but otherwise denies any fever, chills, nausea come of omni or diarrhea up here at the patient also denies any chest pain or shortness of breath . In our emergency room, the patient was hemodynamically stable without sign of sepsis. However patients right foot ulcer was reported to be deep and x-ray did show osteomyelitis. Our physician did consult orthopedic surgeon application performance engineer who agreed that the patient should be hospitalized for IV antibiotic and possible further evaluation by orthopedic surgery. The patient was given IV fluid as well as IV vancomycin and zosyn. Of note patient glucose was in the 500s but no sign of DKA or hyperosmolar. The patient was given 60 unit of lantus and 12 units of lispro. [facility] Medical History Family history of colon cancer Depression Colon polyps (06/10/17) Diabetic polyneuropathy (09/24/17) Chronic fatigue Hypercholesterolemia Hypertension Hypothyroidism Diabetes (~1997) Surgical History History of colonoscopy with polypectomy (06/10/17) Family History Brother No problems noted. Father Respiratory disease Mother Colon cancer Sister No problems noted. Family/Other No problems noted. Family/Other No problems noted. Social History marital status: household members: spouse Smoking Status: Former smoker Meds Home Medications and Allergies Home Medications Medication Instructions Recorded Confirmed Type Glucose: Home Monitoring Kit 0 kit QID #1 ea 04/30/16 04/21/24 Rx simvastatin 20 mg tablet (Zocor) 20 mg PO HS #90 tabs 06/09/18 04/21/24 Rx Glucose: Test Strips #200 ea 09/09/18 04/21/24 Rx lisinopril 20 mg tablet 20 mg PO Q DAY #90 tabs 06/07/19 04/21/24 Rx sertraline 100 mg tablet 100 mg PO QDAY #90 tabs 07/21/19 04/21/24 Rx levothyroxine 150 mcg tablet 150 mcg PO DAILY 04/11/24 04/21/24 History metformin 1,000 mg tablet 1,000 mg PO BID #180 tabs 04/14/24 04/21/24 Rx pioglitazone 15 mg tablet (Actos) 15 mg PO DAILY #90 tabs 04/14/24 04/21/24 Rx pen needle, diabetic 31 gauge x #100 ea 04/15/24 04/21/24 Rx /16 (Pen Needle) gabapentin 300 mg capsule 300 mg PO QAM 04/21/24 04/21/24 History (Neurontin) gabapentin 600 mg tablet 600 mg PO BEDTIME 04/21/24 04/21/24 History Allergies Allergy/AdvReac Type Severity Reaction Status Date / Time No Known Drug Allergies Allergy Verified 04/11/24 09:08 Review of Systems Review of Systems Narrative: 12 points of ROS are negative except for what was mentioned per HPI Exam Vital Signs (past 8 hours): - 04/21/24 19:55 04/21/24 19:55 04/21/24 20:00 Temperature Pulse Rate 77 79 Respiratory Rate Blood Pressure 162/71 H Pulse Oximetry 98 97 Oxygen Delivery Method Room Air Oxygen Flow Rate 04/21/24 20:30 04/21/24 21:00 04/21/24 21:30 Temperature Pulse Rate 75 74 67 Respiratory Rate Blood Pressure Pulse Oximetry 98 99 99 Oxygen Delivery Method Oxygen Flow Rate 04/21/24 21:49 04/21/24 21:49 04/21/24 22:00 Temperature Pulse Rate 58 L 61 Respiratory Rate Blood Pressure 177/87 H Pulse Oximetry 99 99 Oxygen Delivery Method Oxygen Flow Rate 04/21/24 22:00 04/21/24 22:30 04/21/24 22:30 Temperature Pulse Rate 64 Respiratory Rate Blood Pressure 186/82 H 154/72 H Pulse Oximetry 98 Oxygen Delivery Method Room Air Oxygen Flow Rate 04/21/24 23:06 04/21/24 23:18 04/22/24 00:00 Temperature 97.4 F L Pulse Rate 65 Respiratory Rate 18 Blood Pressure 188/65 H 148/56 H Pulse Oximetry 100 Oxygen Delivery Method Room Air Oxygen Flow Rate 0 Oxygen Delivery Method Room Air Oxygen Flow Rate 0 Narrative Exam Narrative: GENERAL: The patient is not in any acute distressed. Awake and alert. HEENT: Nonicteric sclerae, PERRLA, EOMI. Oropharynx clear. Moist mucous membranes. Conjunctivae appear well perfused. HEART: Regular rate and rhythm without murmurs. No lower extremities edema. LUNGS: Clear to auscultation bilaterally. No wheezing, crackles or rhonchi ABDOMEN: Soft, positive bowel sounds, nontender. SKIN: Right great two with deep ulcer noted. Otherwise No rash, no excessive bruising, petechiae, or purpura. NEUROLOGIC: AxO x 3. Cranial nerves II-XII intact without motor/sensory deficit. Objective Labs 04/21/24 19:50 04/21/24 19:50 Labs: Laboratory Results - last 24 hr 04/21/24 19:50 WBC 11.8 H RBC 4.51 Hgb 13.4 L Hct 40.9 L MCV 90.6 MCH 29.7 MCHC 32.8 RDW 13.1 Plt Count 280 Neut % (Auto) 82.7 H Lymph % (Auto) 11.0 L [place] % (Auto) 4.4 Eos % (Auto) 0.9 L Baso % (Auto) 1.0 Neut # (Auto) 9700 H Lymph # (Auto) 1300 [place] # (Auto) 500 Eos # (Auto) 100 Baso # (Auto) 100 ESR 19 H PT 11.1 INR 1.0 Sodium 131 L Potassium 5.7 H Chloride 95 L Carbon Dioxide 29 BUN 29 H Creatinine 1.05 Estimated GFR > 60 BUN/Creatinine Ratio 27.6 H Glucose 497 H* Lactate 1.1 Calcium 9.2 Total Bilirubin 0.6 AST 20 ALT 18 Alkaline Phosphatase 75 Troponin I < 0.012 C-Reactive Protein 3.4 H NT-Pro-B Natriuret Pep 32 Total Protein 7.2 Albumin 4.4 Globulin 2.8 Albumin/Globulin Ratio 1.6 Lipase 175 Procalcitonin 0.078 Assessment & Plan Assessment & Plan narrative: Right Great toe diabetic foot ulcer with underlying osteomyelitis. Admit the patient to medical telemetry inpatient. Orthopedic surgeon was consulted and will see the patient tomorrow for any surgical debridement. Orthopedic surgeon will decide if MRI is needed in AM. Continue IV vancomycin and zosyn. Of note the patient's not septic at this time. Pain control with PTOT . Hyperglycemia with glucose in the 500 but no sign of DKA or hyper osmolar. Of note-patient is insulin dependent diabetes. Continue lantus 60 units daily and will try to bring glucose down with subq insulin. IVF fluid . Hypertension. Monitor blood pressure and treat accordingly . Hyperlipidemia. Resume home statin . Hypothyroidism resume home synthroid.? DVT prophylaxis heparin sub q.? Code status full code . Disposition likely home in 2 to 3 days.? Time-Based Coding :: [TOTAL MINUTES] spent with patient and on the chart (including review of chart, obtaining history, exam, reviewing outside data, placing orders, documenting exam and treatment plan, and counseling patient) on [DATE].
[2024-04-22] MEDS: DEXTROSE 10 % IN WATER 100 ML 999 ML IV (03:50)
[2024-04-22 04:10] LABS: Add Manual Diff / Slide Review NO; Basophils Absolute Auto 0 /uL (0-100); Basophils Percent Auto 0.2 % (0-2); Eosinophils Absolute Auto 300 /uL (0-450); Eosinophils Percent Auto 2.3 % (2-4); Hematocrit 40.6 % (41-53); Hemoglobin 13.5 g/dL (13.5-17.5); Lymphocytes Absolute Auto 4400 /uL (1100-4500); Lymphocytes Percent Auto 36.3 % (25-40); Mean Corpuscular HGB Conc 33.3 % (30-36); Mean Corpuscular Hemoglobin 29.6 PG (26-34); Mean Corpuscular Volume 88.9 fL (80-100); Monocytes Absolute Auto 900 /uL (0-900); Monocytes Percent Auto 7.4 % (3-14); Neutrophils Absolute Auto 6500 /uL (1500-7000); Neutrophils Percent Auto 53.8 % (50-75); Platelet Count 297 X10^3/uL (150-400); Red Blood Cell Count 4.57 X10^6/uL (4.5-5.9); Red Cell Distribution Width 12.7 % (11.6-14.8); White Blood Cell Count 12.1 X10^3/uL (4.5-11.0)
[2024-04-22 04:24] LABS: BUN Creatinine Ratio 25.6 (6-22); Blood Urea Nitrogen 23 mg/dL (9-20); Calcium 9.5 mg/dL (8.4-10.2); Carbon Dioxide 23 mmol/L (22-32); Chloride 105 mmol/L (98-107); Estimated Glomerular Filt Rate > 60 mL/min (>60); Glucose 130 mg/dL (80-110); HEMOLYSIS < 15 (0-50); Potassium 3.3 mmol/L (3.4-5.1); Sodium 137 mmol/L (137-145)
--- NOTE | 2024-04-22 05:44 | PC.NURSE ---
Pt came into ED with BG 490's, received 60 units long acting, 12 units regular acting insulin before arriving to floor at 2245, arriving with BG in the 260's. Rechecked at 0330, BG 43, patient diaphoretic, shaky, reporting heart palpitations. Gave 12 oz apple juice & 1 packet honey, rechecked ~0445 BG 50. Gave D10 100 ml bolus per protocol, rechecked at ~0505 BG 149. Rechecked at 0605 BG 140
[2024-04-22] MEDS: lisinopriL 20 MG TABLET PO (08:11)
[2024-04-22] MEDS: VANCOMYCIN 1,500 MG/300 ML PIGGYBACK 200 MG IV ×2 (08:11→19:01)
[2024-04-22] MEDS: LEVOTHYROXINE 75 MCG TABLET 150 MCG PO (08:12)
[2024-04-22] MEDS: SERTRALINE 50 MG TABLET 100 MG PO (08:12)
--- NOTE | 2024-04-22 10:15 | PT.IIE ---
Current Diagnoses Type 2 diabetes mellitus with foot ulcer (04/21/24) Surgical History (Last Reviewed 04/13/24 @ 13:11 by Luis Slade DO) History of colonoscopy with polypectomy (06/10/17) Medical History (Last Reviewed 04/21/24 @ 23:26 by Cicso Sosa DO) Chronic fatigue Colon polyps (06/10/17) Depression Diabetes (~1997) Diabetic polyneuropathy (09/24/17) Family history of colon cancer Hypercholesterolemia Hypertension Hypothyroidism Physical Therapy Inpatient Evaluation/Re-Eval M1 PT/OT-IP Prior Functional Status Start: 04/22/24 11:09 Freq: NEEDED Status: Active Protocol: Document 04/22/24 10:15 AB (Rec: 04/22/24 11:23 AB [id number]) Medical Review Prior Functional Status Medical History Reviewed Yes Communication able to make needs known Mobility and Gait pt stated that he was indpenednet with all mobilities and ambulation without AD Social History Household Members spouse Living Arrangements House Number of Floors (Floors) Two Floors Number of Stairs To Enter/Railing? pt stays on the main level of the house 1 step to enter Home Environment Standard Height Toilet,Walk in Shower Additional Social History Comment pt sleeps on his couch M2 PT-IP Current Condition Start: 04/22/24 11:09 Freq: NEEDED Status: Active Protocol: Document 04/22/24 10:15 AB (Rec: 04/22/24 11:23 AB [id number]) Physical Therapy Current Condition Current Condition Evaluation Date 04/22/24 Treatment Diagnosis R great toe osteomyelitis; difficulty in walking Onset Date 04/21/24 M3 PT-IP Subjective Start: 04/22/24 11:09 Freq: NEEDED Status: Active Protocol: Document 04/22/24 10:15 AB (Rec: 04/22/24 11:23 AB [id number]) Subjective Physical Therapy Visit Type Type Initial Evaluation Visit Start Time 10:15 Visit Stop Time 10:[address] David PASTRANA at this time on RLE. Number of RETAIL EQUIPMENT ASSOCIATE Visits 0 Physical Therapy Visit Comments Patient Comments agreeable to do PT Therapy Pain Assessment Pain When Pain Assessed During Mobility Pain Present Pain Present Pain Reported Location Right Toe Scale Used slight pain; pain scale not stated Pain Management Techniques Distraction,Modification of Treatment,Re-positioning, Timing of Activity with Medications M4 PT-IP Mobility and Gait Start: 04/22/24 11:09 Freq: NEEDED Status: Active Protocol: Document 04/22/24 10:15 AB (Rec: 04/22/24 11:23 AB [id number]) PT-Bed Mobility Assessment Supine to Sit Supine to Sit Independent PT-Transfer Assessment Sit to and From Stand Sit to and from Stand Standby Assistance,1 Person Assistance,Use of Upper Extremities Equipment Transfer Assistive Device Gait Belt,Front Wheeled Walker Orthotic/Prosthetic Devices or Brace: No Transfers Transfer Destination Toilet Transfer Technique ambulated Transfer Ability Level of Assist Standby Assistance,1 Person Assistance,Use of Upper Extremities Comments Mobility Comments pt supine in bed. family in room. obtained PLOF and home set up from pt. pt completed supine to sit mod I. informed pt that per hospitalist, pt can be WBAT on RLE but can use FWW for support to take weight/pressure off RLE if needed. pt understood. sit to stand from EOB SBA and ambulated in room using FWW SBA ~ 30 ft. pt requested to use the toilet. ambulated ~ 15 ft without AD SBA. pt wants to use the toilet for awhile. informed regarding use of call light for assistance. Left pt with family. Gait Assessment Gait Gait Assistance Required: Standby Assistance Distance (Feet) 30 Assistive Devices Assistive Device None,Front Wheeled Walker Orthotic/Prosthetic Devices or Brace: No Factors Limiting Gait Function Factors Limiting Gait Function Decreased Activity Tolerance, Pain,Poor Balance PT-Balance Assessment Sitting Balance and Reactions Static Sitting Balance Ability Normal Dynamic Sitting Balance Ability Normal Standing Balance and Reactions Static Standing Balance Ability Good Dynamic Standing Balance Ability Fair Device Used FWW M5 PT-IP Objective Assessments Start: 04/22/24 11:09 Freq: NEEDED Status: Active Protocol: Document 04/22/24 10:15 AB (Rec: 04/22/24 11:23 AB [id number]) Orientation Orientation/Cognition Level of Alertness Alert Orientation Name,Age,Birthday,Month,Date, Year,Day of Week,Place, Situation Language Function Ability No Deficits Noted Safety Awareness Understands Safety Issues Memory Description No Deficits Noted Gross Range of Motion Lower Extremity ROM Assessment Within Functional Limits Strength Lower Extremity Strength Assessment Within Functional Limits Muscle Tone Muscle Tone WNL Yes M6 PT-IP Treatment Start: 04/22/24 11:09 Freq: NEEDED Status: Active Protocol: Document 04/22/24 10:15 AB (Rec: 04/22/24 11:23 AB [id number]) Physical Therapy Treatment Education Education Provided Safety M7 PT-IP Assessment and Plan Start: 04/22/24 11:09 Freq: NEEDED Status: Active Protocol: Document 04/22/24 10:15 AB (Rec: 04/22/24 11:23 AB [id number]) PT Summary Assessment and Plan Potential Rehabilitation Potential Fair Status of Condition at Evaluation Evolving Summary Impairments Pain,ROM,Strength,Balance, Coordination,Sensation,Tone, Cognition,Bed Mobility, Transfers,Gait,Activity Tolerance Assessment Summary pt is a 64 y/o M who presented with R great toe wound and is admitted for R great toe osteomyelitis. pt is awaiting ortho consult for possible interventions. Hospitalist cleared pt to be WBAT on RLE at this time. pt requiring SBA with mobility at this time and able to ambulate using FWW and also without AD SBA. pt tends to unweight RLE by walking more on his heel and lateral foot when not using FWW. Pt's mobility level might change depending intervention decided by ortho doctor/s. will continue to assess. Goals Bed Mobility Goal Independent Transfer Goal Independent,Front Wheeled Walker Gait Goal Independent,Front Wheel Walker Gait Distance 200 Other Goals improve transfers/ambulation wtihout AD/LRAD 250 ft mod I up/down 1 step mod I Days to Meet Goals 10 Frequency of Treatment Frequency Of Treatment Once a Day Treatment Plan Physical Therapy Treatment Plan Bed Mobility Training,Transfer Training,Gait Training, Therapeutic Exercise,Balance Retraining,Discharge Planning, Hot or Cold Pack,Neuromuscular Re-ed,Coordination Retraining ,Manual Therapy Weight Bearing Status Weight Bearing Status Weight Bear as Tolerated Allowed Weight Bearing Amount (enter % RLE WBAT or #) (%) Recommendations To Nursing Amount of Assist Needed Standby Assistance Discharge Recommendations PT Discharge Recommendations Home with Assistance Transportation Needs at Discharge Private Vehicle
--- NOTE | 2024-04-22 11:36 | OT.IPNOTE ---
Pt is SBA at this time with FWW and states has no needs for OT at this time. Awaiting consult for orthro, therefore discharge OT eval orders.
--- NOTE | 2024-04-22 12:03 | CM.DANOTE ---
Addendum entered by SHELTON Martinez 04/22/24 14:11: Edited to Add: Patient is being followed by [facility], Dr. Nahum Flores. Original Note: DCP Assessment Note: Pt is a 64yo male, resident of [place], is admitted for osteomyelitis on his R toe. Pt lives in a house with his spouse and son (40yo). Pt's Primary Care Provider is Dr. Luis Slade and insurance is [facility]. Reviewed chart and team rounds for pt's medical status and initial discharge needs. Per rounds, Ortho is being consulted for possible MRI/surgery and pt is obtaining IV antibiotics in the meantime. DCP met w/patient at bedside; introduced self and role. Patient was found in bed, alert and oriented, cooperative with assessment. Pt confirmed living situation and good support in spouse. Pt expressed preference in returning home when medically cleared, verbalized understanding that they are awaiting to be seen by Ortho team. Pt states he does not have a hx of HH or SNF, declined this [facility]'s offer for HH referral. Plan: Pending Ortho consult for care coordination, estimated 2-3 days of abx course, per provider notes. CM team will follow closely for coordination of discharge plans. ANDRE Grant Discharge Planning/Care Management CM Discharge Assessment Start: 04/22/24 11:59 Freq: Status: Active Protocol: Document 04/22/24 11:59 MW (Rec: 04/22/24 12:02 MW [id number]) Discharge Planning Assessment Assigned Procurement Internship SHELTON Argueta DPOA/Assigned Designee Name Anusha Trujillo, Spouse Contact Information [phone] Advance Directives? No History Provided By Patient,Medical Record Prior Living Arrangements House Household Members spouse Type of transporation used prior to Drives own vehicle admit Independent with ADL's Yes Is patient alert and oriented? Yes Caregiver for Another No Comment Preference to discharge home with family. Barriers to Discharge No Discharge Plan Home Transportation Arrangement Spouse to transport. Referrals Initiated None needed Whiteboard Updated in Patient Room with Yes name and ext. # of Procurement Internship Comment [phone] Please Provide Date Initial DC 04/22/24 Assessment Was Performed Next Review Type Continued Stay Review
[2024-04-22] MEDS: POTASSIUM CHLORIDE 20 MEQ TAB 40 MEQ PO (12:26)
--- NOTE | 2024-04-22 13:09 | DI.MRI.S_ITS ---
PROCEDURE: MR FOOT RT WO/W CON INDICATIONS: eval right great toe osteo/ abcess TECHNIQUE: Multiphasic, multisequence MRI of the forefoot was performed, before and after intravenous contrast administration. COMPARISON: [facility], CR, XR FOOT RT MIN 3V, 04/21/2024, 17:59. FINDINGS: Image quality: Diagnostic Bones and joints: Moderate background degenerative changes. No acute displaced fracture is seen. Mild periarticular edema is seen surrounding the 1st MTP and interphalangeal joint. The 1st distal phalanx has mild diffuse enhancement and edema, without confluent signal loss on precontrast T1 weighted images. Mild focal edema is also seen at the 1st proximal phalangeal head. Periarticular cystic changes are also seen, likely degenerative geodes or sequela prior erosion Soft tissues: There is diffuse soft tissue swelling, more focally in the medial distal portion of the 1st ray. There is no drainable rim enhancing fluid collection identified. No significant fluid collection around the extensor or flexor tendons of the 1st ray, although the extensor tendon appears to have mild enhancement and edema surrounding it. IMPRESSION: Soft tissue inflammation and edema most focally around the medial distal 1st ray. Mild edema and enhancement is seen in the distal phalanx and proximal phalangeal head, probably reactive to adjacent soft tissue inflammation/infection versus early osteomyelitis. No findings of confluent T1 signal loss to suggest later stages osteomyelitis/necrotic bone. Background moderate degenerative changes Dictated by: Yahir Manrique M.D. on 04/22/2024 at 19:08 Approved by: Yahir Manrique M.D. on 04/22/2024 at 19:13
--- NOTE | 2024-04-22 13:11 | P.HP_ITS ---
History of Present Illness History of Present Illness Chief complaint: diabetic infected foot wound, sent by PCP Narrative: He comes in to the emergency room with increased pain and a worsening right foot sore. He has been followed through [facility] for months. He saw his mortgage consultant recently who felt that he had infection in the right great toe and asked him to go to [facility]. He came to [facility] Emergency room for admission. He has not been adequately monitoring his sugars. He has been trying hard to to get a new glucose monitoring system. He is currently seeing Dr. Slade. [facility] Medical History Family history of colon cancer Depression Colon polyps (06/10/17) Diabetic polyneuropathy (09/24/17) Chronic fatigue Hypercholesterolemia Hypertension Hypothyroidism Diabetes (~1997) Surgical History History of colonoscopy with polypectomy (06/10/17) Family History Brother No problems noted. Father Respiratory disease Mother Colon cancer Sister No problems noted. Family/Other No problems noted. Family/Other No problems noted. Social History marital status: household members: spouse Smoking Status: Former smoker Meds Home Medications and Allergies Home Medications Medication Instructions Recorded Confirmed Type Glucose: Home Monitoring Kit 0 kit QID #1 ea 04/30/16 04/21/24 Rx simvastatin 20 mg tablet (Zocor) 20 mg PO HS #90 tabs 06/09/18 04/21/24 Rx Glucose: Test Strips #200 ea 09/09/18 04/21/24 Rx lisinopril 20 mg tablet 20 mg PO Q DAY #90 tabs 06/07/19 04/21/24 Rx sertraline 100 mg tablet 100 mg PO QDAY #90 tabs 07/21/19 04/21/24 Rx levothyroxine 150 mcg tablet 150 mcg PO DAILY 04/11/24 04/21/24 History metformin 1,000 mg tablet 1,000 mg PO BID #180 tabs 04/14/24 04/21/24 Rx pioglitazone 15 mg tablet (Actos) 15 mg PO DAILY #90 tabs 04/14/24 04/21/24 Rx pen needle, diabetic 31 gauge x #100 ea 04/15/24 04/21/24 Rx 5/16 (Pen Needle) gabapentin 300 mg capsule 300 mg PO QAM 04/21/24 04/21/24 History (Neurontin) gabapentin 600 mg tablet 600 mg PO BEDTIME 04/21/24 04/21/24 History Allergies Allergy/AdvReac Type Severity Reaction Status Date / Time No Known Drug Allergies Allergy Verified 04/11/24 09:08 Exam Vital Signs (past 8 hours): - 04/22/24 06:00 04/22/24 07:56 04/22/24 08:11 Temperature 96.9 F L Pulse Rate 65 65 Respiratory Rate 19 Blood Pressure 169/70 H 141/65 H 141/65 H Pulse Oximetry 99 Oxygen Delivery Method Oxygen Flow Rate 0 04/22/24 08:15 Temperature Pulse Rate Respiratory Rate Blood Pressure Pulse Oximetry Oxygen Delivery Method Room Air Oxygen Flow Rate Oxygen Delivery Method Room Air Oxygen Flow Rate 0 Narrative Exam Narrative: She is resting comfortably in bed, HEENT is benign, lungs are clear cor regular rate and rhythm, abdomen is benign examination of right lower extremity shows a wound over the right great toe, there is erythema, there has no significant active drainage, has fair range of motion in his right foot MTP joint and reasonable motion in the right toe IP joint. His plantar foot skin surfaces intact except over the hallux. Objective Labs 04/22/24 03:50 04/22/24 03:50 Labs: Laboratory Results - last 24 hr 04/21/24 04/22/24 19:50 03:50 WBC 11.8 H 12.1 H RBC 4.51 4.57 Hgb 13.4 L 13.5 Hct 40.9 L 40.6 L MCV 90.6 88.9 MCH 29.7 29.6 MCHC 32.8 33.3 RDW 13.1 12.7 Plt Count 280 297 Neut % (Auto) 82.7 H 53.8 D Lymph % (Auto) 11.0 L 36.3 D Cameron % (Auto) 4.4 7.4 Eos % (Auto) 0.9 L 2.3 Baso % (Auto) 1.0 0.2 Neut # (Auto) 9700 H 6500 Lymph # (Auto) 1300 4400 Cameron # (Auto) 500 900 Eos # (Auto) 100 300 Baso # (Auto) 100 0 ESR 19 H PT 11.1 INR 1.0 Sodium 131 L 137 Potassium 5.7 H 3.3 L D Chloride 95 L 105 Carbon Dioxide 29 23 BUN 29 H 23 H Creatinine 1.05 0.90 Estimated GFR > 60 > 60 BUN/Creatinine Ratio 27.6 H 25.6 H Glucose 497 H* 130 H D Lactate 1.1 Calcium 9.2 9.5 Total Bilirubin 0.6 AST 20 ALT 18 Alkaline Phosphatase 75 Troponin I < 0.012 C-Reactive Protein 3.4 H NT-Pro-B Natriuret Pep 32 Total Protein 7.2 Albumin 4.4 Globulin 2.8 Albumin/Globulin Ratio 1.6 Lipase 175 Procalcitonin 0.078 Assessment & Plan Assessment and plan (1) Diabetes: Status: Acute (2) Osteomyelitis: Status: Acute (3) Type 2 diabetes mellitus with diabetic polyneuropathy, with long-term current use of insulin: Status: Chronic (4) Diabetic foot ulcer with osteomyelitis: Status: Acute Plan I have recommended an MRI scan to further evaluate his right great toe. He does need to continue on IV antibiotics. I did a dressing change today there does not appear to be a deep abscess. He does not have exposed bone. His clinical exam does not suggest a septic IP joint. I think he likely will respond to conservative treatment. We will get an MRI scan continue on antibiotics consult wound care and I will recheck his exam tomorrow to make sure there is not an indication for surgical intervention. I anticipate he needs at least 1-2 additional days of continued IV antibiotics. Time-Based Coding :: [TOTAL MINUTES] spent with patient and on the chart (including review of chart, obtaining history, exam, reviewing outside data, placing orders, documenting exam and treatment plan, and counseling patient) on [DATE].
--- NOTE | 2024-04-22 13:42 | P.PN_ITS ---
Subjective Subjective Date Patient Seen: 04/22/24 Time Patient Seen: 09:30 Interval history: 64-year-old male with past medical history of insulin-dependent diabetes, hyperlipidemia, hypertension, hypothyroidism, depression and chronic right foot infection presents with worsening right foot infection. Per the patient report, the patient was recently seen by podiatry as outpatient for his right great toe ulcer. The patient had debridement as outpatient with possible abscess. Podiatry however sent the patient to our ER due to concern of underlying osteomyelitis. The patient admit to have some pain in his right foot but otherwise denies any fever, chills, nausea come of omni or diarrhea up here at the patient also denies any chest pain or shortness of breath . In our emergency room, the patient was hemodynamically stable without sign of sepsis. However patients right foot ulcer was reported to be deep and x-ray did show osteomyelitis. Our physician did consult orthopedic surgeon risk control field representative who agreed that the patient should be hospitalized for IV antibiotic and possible further evaluation by orthopedic surgery. The patient was given IV fluid as well as IV vancomycin and zosyn. Of note patient glucose was in the 500s but no sign of DKA or hyperosmolar. The patient was given 60 unit of lantus and 12 units of lispro. Interval history: The patient reports he has not been measuring blood sugars lately. He has mild pain in the toe but states it is much improved since his it was unroofed. He was seen by Orthopedics today and not considered an operative candidate, and MRI was ordered. Case reviewed with Dr. chela Caraballo of Orthopedics. Exam Vital Signs (past 8 hours): - 04/22/24 06:00 04/22/24 07:56 04/22/24 08:11 Temperature 96.9 F L Pulse Rate 65 65 Respiratory Rate 19 Blood Pressure 169/70 H 141/65 H 141/65 H Pulse Oximetry 99 Oxygen Delivery Method Oxygen Flow Rate 0 04/22/24 08:15 Temperature Pulse Rate Respiratory Rate Blood Pressure Pulse Oximetry Oxygen Delivery Method Room Air Oxygen Flow Rate Oxygen Delivery Method Room Air Oxygen Flow Rate 0 Narrative Exam Narrative: GENERAL: The patient is not in any acute distressed. Awake and alert. HEENT: Nonicteric sclerae, PERRLA, EOMI. Oropharynx clear. Moist mucous membranes. HEART: Regular rate and rhythm without murmurs. No lower extremities edema. LUNGS: Clear to auscultation bilaterally. No wheezing, crackles or rhonchi ABDOMEN: Soft, positive bowel sounds, nontender. SKIN: Right great toe with approximate lead 3 cm deep ulcer noted. Otherwise no rash, no excessive bruising, petechiae, or purpura. NEUROLOGIC: AxO x 3. Cranial nerves II-XII intact without motor/sensory deficit. Objective Labs 04/22/24 03:50 04/22/24 03:50 Labs: Laboratory Results - last 24 hr 04/21/24 04/22/24 19:50 03:50 WBC 11.8 H 12.1 H RBC 4.51 4.57 Hgb 13.4 L 13.5 Hct 40.9 L 40.6 L MCV 90.6 88.9 MCH 29.7 29.6 MCHC 32.8 33.3 RDW 13.1 12.7 Plt Count 280 297 Neut % (Auto) 82.7 H 53.8 D Lymph % (Auto) 11.0 L 36.3 D Wise % (Auto) 4.4 7.4 Eos % (Auto) 0.9 L 2.3 Baso % (Auto) 1.0 0.2 Neut # (Auto) 9700 H 6500 Lymph # (Auto) 1300 4400 Wise # (Auto) 500 900 Eos # (Auto) 100 300 Baso # (Auto) 100 0 ESR 19 H PT 11.1 INR 1.0 Sodium 131 L 137 Potassium 5.7 H 3.3 L D Chloride 95 L 105 Carbon Dioxide 29 23 BUN 29 H 23 H Creatinine 1.05 0.90 Estimated GFR > 60 > 60 BUN/Creatinine Ratio 27.6 H 25.6 H Glucose 497 H* 130 H D Lactate 1.1 Calcium 9.2 9.5 Total Bilirubin 0.6 AST 20 ALT 18 Alkaline Phosphatase 75 Troponin I < 0.012 C-Reactive Protein 3.4 H NT-Pro-B Natriuret Pep 32 Total Protein 7.2 Albumin 4.4 Globulin 2.8 Albumin/Globulin Ratio 1.6 Lipase 175 Procalcitonin 0.078 PFSH Medical History Family history of colon cancer Depression Colon polyps (06/10/17) Diabetic polyneuropathy (09/24/17) Chronic fatigue Hypercholesterolemia Hypertension Hypothyroidism Diabetes (~1997) Surgical History History of colonoscopy with polypectomy (06/10/17) Family History Brother No problems noted. Father Respiratory disease Mother Colon cancer Sister No problems noted. Family/Other No problems noted. Family/Other No problems noted. Social History marital status: household members: spouse Smoking Status: Former smoker Assessment & Plan Assessment & Plan narrative: 1. Right big toe diabetic foot ulcer with underlying osteomyelitis. Admit the patient to medical telemetry inpatient. Orthopedic surgeon consulted and not felt to need surgical debridement. MRI ordered and pending. Continue IV vancomycin and zosyn. 2. Diabetes mellitus, type 2. Continue Lantus 30 units twice daily. Of note he had 60 units last night and developed hypoglycemia. Continue to monitor with sliding scale coverage and diabetic diet. 3. Hypertension. Monitor blood pressure and treat accordingly . 4. Hyperlipidemia. Resume home statin . 5. Hypothyroidism resume home synthroid.? 6. DVT prophylaxis heparin sub q.? Code status full code . Disposition likely home in 2 to 3 days.? Time-Based Coding :: [TOTAL MINUTES] spent with patient and on the chart (including review of chart, obtaining history, exam, reviewing outside data, placing orders, documenting exam and treatment plan, and counseling patient) on [DATE]. PROFEE Charge codes Subsequent inpatient/observation care: [id number]
--- NOTE | 2024-04-22 14:49 | DIET.CONS ---
Dietary Consultation Note Admission Date: 04/21/2024 21:35 Assessment: 64 y M admitted for osteomyelitis on his toe. Nutrition consulted for diabetes. Met with pt at bedside. Reports has not been able to monitor BG in last 4-5 months due difficulties getting glucose monitoring system. Is set to see conservation educator in late Apr. Drinks Pedialyte, likes flavored schumacher or lyte drinks. 12 g CHO, 9 g added sugar per 12 oz of pedialyte. Ht: 182.88 cm Wt: 95.254 kg BMI: 28.5 Last BM: 04/21/24 (04/21/24 23:18) MNA: 14 Ricardo Score: 20 Diet: 04/22/24 Lunch Carbohydrate Consistent Diet Diet Modifications: Carbohydrate level: Large (4 CHO) Reflex DM orders: No Food Texture: Level 7 - Regular Liquid Consistency: Level 0 - Thin Labs: RBC 4.57 X10^6/uL (4.5-5.9) 04/22/24 03:50 Hgb 13.5 g/dL (13.5-17.5) 04/22/24 03:50 Hct 40.6 % (41-53) L 04/22/24 03:50 Creatinine 0.90 mg/dL (0.66-1.25) 04/22/24 03:50 Lactate 1.1 mmol/L (0.7-2.1) 04/21/24 19:50 NT-Pro-B Natriuret Pep 32 pg/mL (<125) 04/21/24 19:50 Nutrition Diagnosis: Altered nutrition related lab values r/t endocrine dysfunction aeb A1c 8.9% Interventions: Troubleshot issues r/t to obtaining glucose meter, discussed CGMs. Discussed alternative flavorings to add to water w/ 0 sugar Reviewed plate method Monitoring/Evaluations: po intakes, BG Electronically Signed by: Leilani Patterson 04/22/24 14:49 Clinical Dietitian [address] [id number]
[2024-04-22] MEDS: SODIUM CHLORIDE 0.9% 1,000 ML 100 ML IV ×2 (17:20)
[2024-04-22] MEDS: INSULIN LISPRO 100 UNIT/ML 3ML VIAL SUBCUT (20:48)
[2024-04-22] MEDS: INSULIN GLARGINE 100 UNIT/ML 3ML PEN 30 UNIT SUBCUT (20:50)
[2024-04-22] MEDS: HEPARIN 5,000 UNIT/ML VIAL 5000 UNIT SUBCUT (20:52)
[2024-04-22] MEDS: GABAPENTIN 600 MG TABLET PO (20:52)
[2024-04-22] MEDS: ATORVASTATIN 20 MG TABLET 10 MG PO (20:52)
[2024-04-23] VITALS (8 sets, daily range): BP systolic 112–151; BP diastolic 47–65; PULSE 60–73; RESP 14–20; TEMP 35.8–36.7; O2SAT 94–100
[2024-04-23] MEDS: PIPERACILLIN/TAZO 3.375 GM in SODIUM CHLORIDE 0.9% 100 ML IV ×3 (03:47→21:10)
[2024-04-23] MEDS: LEVOTHYROXINE 75 MCG TABLET 150 MCG PO (05:21)
[2024-04-23] MEDS: SODIUM CHLORIDE 0.9% 1,000 ML 100 ML IV ×2 (05:38→17:14)
[2024-04-23] MEDS: VANCOMYCIN 1,500 MG/300 ML PIGGYBACK 200 MG IV ×2 (07:50→19:13)
[2024-04-23] MEDS: HEPARIN 5,000 UNIT/ML VIAL 5000 UNIT SUBCUT ×2 (07:55→21:09)
[2024-04-23] MEDS: lisinopriL 20 MG TABLET PO (07:55)
[2024-04-23] MEDS: SERTRALINE 50 MG TABLET 100 MG PO (07:55)
[2024-04-23] MEDS: GABAPENTIN 300 MG CAPSULE PO (07:55)
[2024-04-23] MEDS: INSULIN LISPRO 100 UNIT/ML 3ML VIAL SUBCUT ×4 (11:46→21:09)
--- NOTE | 2024-04-23 12:04 | P.PN_ITS ---
Subjective Subjective Interval history: Bg is a pleasant 64 year old male who is admitted to for R 1st toe wound, concern for infection, orthopedics consulted. He has a hx of DM, he has not been adequately monitoring his sugars. He has been trying hard to to get a new glucose monitoring system. Currently seeing Dr. Slade. Denies any significant pain in the right foot/1st toe. He has been managed by both [facility] and a body painter for this wound for the last few months. MRI of the right foot was obtained yesterday to assess for osteomyelitis, no surgical intervention indicated at this time. He been maintained IV antibiotics during his admission, seems to be improving. Denies fever, chills, chest pain, SOB, nausea, vomiting. Exam Vital Signs (past 8 hours): - 04/23/24 07:00 04/23/24 07:55 04/23/24 11:00 Temperature 97.1 F L 98.0 F Pulse Rate 73 73 60 Respiratory Rate 20 20 Blood Pressure 148/65 H 148/65 H 138/62 Pulse Oximetry 94 99 Oxygen Flow Rate 0 0 Oxygen Delivery Method Room Air Oxygen Flow Rate 0 Narrative Exam Narrative: He is resting comfortably in bed during our interview today. Lower extremity exam shows a wound over the plantar surface of the right great toe, there is mild erythema, there is minimal drainage, has good range of motion in his right foot MTP joint and reasonable motion in the right toe IP joint. SILT throughout the RLE. His plantar foot skin surfaces intact except over the hallux. Objective Labs 04/22/24 03:50 04/22/24 03:50 [facility] Medical History Family history of colon cancer Depression Colon polyps (06/10/17) Diabetic polyneuropathy (09/24/17) Chronic fatigue Hypercholesterolemia Hypertension Hypothyroidism Diabetes (~1997) Surgical History History of colonoscopy with polypectomy (06/10/17) Family History Brother No problems noted. Father Respiratory disease Mother Colon cancer Sister No problems noted. Family/Other No problems noted. Family/Other No problems noted. Social History marital status: household members: spouse Smoking Status: Former smoker Assessment & Plan Assessment and plan (1) Diabetic foot ulcer: Qualifiers: Diabetic foot ulcer location: toe Laterality: right Status: Acute Plan 1) Final discharge disposition per Medicine, Orthopedics recommends 1 more day of IV antibiotics/inpatient and discharge to home likely tomorrow w/ oral abx. 2) Continue multimodal pain management PRN. Continue IV vancomycin and zosyn for now and plan to d/c on oral abx. Continue to improve blood sugar control which will help w/ wound healing. 3) DVT prophylaxis per medicine. 4) Continue w/ QD dressing changes while admitted, recommend referral back to [facility] wound care upon discharge from hospital. All patient's questions were answered, they demonstrates understanding and are in agreement with the plan. No surgical intervention recommended at this time. Time-Based Coding :: [TOTAL MINUTES] spent with patient and on the chart (including review of chart, obtaining history, exam, reviewing outside data, placing orders, documenting exam and treatment plan, and counseling patient) on [DATE].
--- NOTE | 2024-04-23 12:16 | PM.PN.1 ---
Subjective Subjective Date Patient Seen: 04/23/24 Time Patient Seen: 11:20 Interval history: 64-year-old male with past medical history of insulin-dependent diabetes, hyperlipidemia, hypertension, hypothyroidism, depression and chronic right foot infection presents with worsening right foot infection. Per the patient report, the patient was recently seen by podiatry as outpatient for his right great toe ulcer. The patient had debridement as outpatient with possible abscess. Podiatry however sent the patient to our ER due to concern of underlying osteomyelitis. The patient admit to have some pain in his right foot but otherwise denies any fever, chills, nausea come of omni or diarrhea up here at the patient also denies any chest pain or shortness of breath . In our emergency room, the patient was hemodynamically stable without sign of sepsis. However patients right foot ulcer was reported to be deep and x-ray did show osteomyelitis. Our physician did consult orthopedic surgeon recreation superintendent who agreed that the patient should be hospitalized for IV antibiotic and possible further evaluation by orthopedic surgery. The patient was given IV fluid as well as IV vancomycin and zosyn. Of note patient glucose was in the 500s but no sign of DKA or hyperosmolar. The patient was given 60 unit of lantus and 12 units of lispro. Interval history: The patient states he is feeling better. Exam Vital Signs (past 8 hours): - 04/23/24 07:00 04/23/24 07:55 04/23/24 11:00 Temperature 97.1 F L 98.0 F Pulse Rate 73 73 60 Respiratory Rate 20 20 Blood Pressure 148/65 H 148/65 H 138/62 Pulse Oximetry 94 99 Oxygen Flow Rate 0 0 Oxygen Delivery Method Room Air Oxygen Flow Rate 0 Narrative Exam Narrative: GENERAL: The patient is not in any acute distress. Awake and alert. HEENT: Nonicteric sclerae, PERRLA, EOMI. Oropharynx clear. Moist mucous membranes. HEART: Regular rate and rhythm without murmurs. LUNGS: Clear to auscultation bilaterally. ABDOMEN: Soft, positive bowel sounds, nontender. SKIN: Right great toe with approximately 3 cm diabetic deep ulcer noted. Otherwise no rash, no excessive bruising, petechiae, or purpura. EXTREMITIES: No edema. NEUROLOGIC: AxO x 3. Cranial nerves II-XII intact without motor/sensory deficit. Intact light touch in toe tips. Objective Imaging MRI left foot 04/22/2024:: Radiologist's impression: Soft tissue inflammation and edema most focally around the medial distal 1st ray. Mild edema and enhancement is seen in the distal phalanx and proximal phalangeal head, probably reactive to adjacent soft tissue inflammation/infection versus early osteomyelitis. No findings of confluent T1 signal loss to suggest later stages osteomyelitis/necrotic bone. Background moderate degenerative changes Labs 04/22/24 03:50 04/22/24 03:50 [facility] Medical History Family history of colon cancer Depression Colon polyps (06/10/17) Diabetic polyneuropathy (09/24/17) Chronic fatigue Hypercholesterolemia Hypertension Hypothyroidism Diabetes (~1997) Surgical History History of colonoscopy with polypectomy (06/10/17) Family History Brother No problems noted. Father Respiratory disease Mother Colon cancer Sister No problems noted. Family/Other No problems noted. Family/Other No problems noted. Social History marital status: household members: spouse Smoking Status: Former smoker Assessment & Plan Assessment & Plan narrative: 1. Right big toe diabetic foot ulcer with cellulits, possibly early osteomyelitis. Admit the patient to medical telemetry inpatient. Orthopedic surgery consulted and not felt to need surgical debridement. MRI shows possible early osteomyelitis. Continue IV vancomycin and zosyn, likely discharge on Zyvox tomorrow pending cultures, with history of MSSA and group B strep. 2. Diabetes mellitus, type 2. Poor long-term control. Emphasized the need to treat diabetes to goal A1C < 6.5% to reduce risk of complications such as #1 above. Continue Lantus 30 units twice daily. Add Lispro 5 units before meals TID and diabetic diet. 3. Hypertension. Monitor blood pressure and treat accordingly . 4. Hyperlipidemia. Resume home statin . 5. Hypothyroidism resume home synthroid.? 6. DVT prophylaxis heparin sub q.? Code status full code . Disposition likely home in 1 day. PROFEE Charge codes Subsequent inpatient/observation care: [id number]
--- NOTE | 2024-04-23 12:23 | CM.DPNOTE ---
ZHENP Cont Reviewed chart. Patient discussed in multidisciplinary rounds. Patient is a Type 2 diabetic-has an appt to see unit educator late Apr. Ortho consulted, not surgical candidate MRI=early osteo in the foot. On IV antibiotics currently, Dr Hernandez awaiting cultures before he decides between po abx vs IV abx at discharge. Patient Lives with spouse and son, return home anticipated with f/u at [facility] foot and ankle Dr Flores (podiatry). CM team following clinical course closely in case any discharge needs or concerns arise. FABIÁN
--- NOTE | 2024-04-23 13:30 | PT.IPTN ---
Current Diagnoses Type 2 diabetes mellitus with diabetic polyneuropathy (04/21/24) Type 2 diabetes mellitus with foot ulcer (04/21/24) Type 2 diabetes mellitus with other specified complication (04/21/24) Type 2 diabetes mellitus without complications (04/21/24) Non-pressure chronic ulcer of other part of unspecified foot with unspecified severity (04/21/24) Osteomyelitis, unspecified (04/21/24) prison (current) use of insulin (04/21/24) Physical Therapy Treatment Note M2 PT-IP Current Condition Start: 04/22/24 11:09 Freq: NEEDED Status: Active Protocol: Document 04/22/24 10:15 AB (Rec: 04/22/24 11:23 AB [id number]) Physical Therapy Current Condition Current Condition Evaluation Date 04/22/24 Treatment Diagnosis R great toe osteomyelitis; difficulty in walking Onset Date 04/21/24 M3 PT-IP Subjective Start: 04/22/24 11:09 Freq: NEEDED Status: Active Protocol: Document 04/23/24 13:42 TS (Rec: 04/23/24 13:56 TS [id number]) Subjective Physical Therapy Visit Type Type Treatment Note Visit Start Time 13:30 Visit Stop Time 13:42 Number of PAD HAND Visits 1 Physical Therapy Visit Comments Patient Comments Pt found resting in bed, reports he is doing well, he is agreeable to PT. M4 PT-IP Mobility and Gait Start: 04/22/24 11:09 Freq: NEEDED Status: Active Protocol: Document 04/23/24 13:42 TS (Rec: 04/23/24 13:56 TS [id number]) PT-Bed Mobility Assessment Supine to Sit Supine to Sit Independent Sit to Supine Sit to Supine Independent PT-Transfer Assessment Sit to and From Stand Sit to and from Stand Standby Assistance Equipment Transfer Assistive Device Gait Belt Comments Mobility Comments Supine to sit Ind with HOB flat. STS with no AD from EOB SBA. He ambulates in the room~ 50' SBA with no AD, does furniture surf in the room. Sit to supine into bed Ind. Pt was left in the bed all needs met. Gait Assessment Gait Gait Assistance Required: Standby Assistance Distance (Feet) 50 Assistive Devices Assistive Device None Orthotic/Prosthetic Devices or Brace: No Gait Deviations General Gait Pattern Antalgic Factors Limiting Gait Function Factors Limiting Gait Function Decreased Activity Tolerance, Decreased Strength,Pain,Poor Balance PT-Balance Assessment Sitting Balance and Reactions Static Sitting Balance Ability Normal Dynamic Sitting Balance Ability Normal Standing Balance and Reactions Static Standing Balance Ability Good Dynamic Standing Balance Ability Fair Device Used FWW M5 PT-IP Objective Assessments Start: 04/22/24 11:09 Freq: NEEDED Status: Active Protocol: Document 04/22/24 10:15 AB (Rec: 04/22/24 11:23 AB [id number]) Orientation Orientation/Cognition Level of Alertness Alert Orientation Name,Age,Birthday,Month,Date, Year,Day of Week,Place, Situation Language Function Ability No Deficits Noted Safety Awareness Understands Safety Issues Memory Description No Deficits Noted Gross Range of Motion Lower Extremity ROM Assessment Within Functional Limits Strength Lower Extremity Strength Assessment Within Functional Limits Muscle Tone Muscle Tone WNL Yes M6 PT-IP Treatment Start: 04/22/24 11:09 Freq: NEEDED Status: Active Protocol: Document 04/23/24 13:42 TS (Rec: 04/23/24 13:56 TS [id number]) Physical Therapy Treatment Education Education Provided Safety M7 PT-IP Assessment and Plan Start: 04/22/24 11:09 Freq: NEEDED Status: Active Protocol: Document 04/23/24 13:42 TS (Rec: 04/23/24 13:56 TS [id number]) PT Summary Assessment and Plan Potential Rehabilitation Potential Fair Summary Impairments Pain,ROM,Strength,Balance, Coordination,Sensation,Tone, Cognition,Bed Mobility, Transfers,Gait,Activity Tolerance Progress Towards Goals Progressing Toward Goals Assessment Summary Bg is doing well with his mobility. He performs all bed mobility Ind. He ambulates in the room SBA with no AD. Informed pt of d/c from PT, pt agreed. PT is recommending pt return home. Goals Bed Mobility Goal Independent Transfer Goal Independent,Front Wheeled Walker Gait Goal Independent,Front Wheel Walker Gait Distance 200 Other Goals improve transfers/ambulation wtihout AD/LRAD 250 ft mod I up/down 1 step mod I Days to Meet Goals 10 Frequency of Treatment Frequency Of Treatment Once a Day Treatment Plan Physical Therapy Treatment Plan Bed Mobility Training,Transfer Training,Gait Training, Therapeutic Exercise,Balance Retraining,Discharge Planning, Hot or Cold Pack,Neuromuscular Re-ed,Coordination Retraining ,Manual Therapy Weight Bearing Status Weight Bearing Status Weight Bear as Tolerated Allowed Weight Bearing Amount (enter % RLE WBAT or #) (%) Recommendations To Nursing Amount of Assist Needed Standby Assistance Discharge Recommendations PT Discharge Recommendations Home with Assistance Transportation Needs at Discharge Private Vehicle
[2024-04-23 15:33] LABS: Add Manual Diff / Slide Review NO; Basophils Absolute Auto 100 /uL (0-100); Basophils Percent Auto 1.5 % (0-2); Eosinophils Absolute Auto 200 /uL (0-450); Eosinophils Percent Auto 2.6 % (2-4); Hematocrit 37.3 % (41-53); Hemoglobin 12.5 g/dL (13.5-17.5); Lymphocytes Absolute Auto 2200 /uL (1100-4500); Lymphocytes Percent Auto 29.2 % (25-40); Mean Corpuscular HGB Conc 33.5 % (30-36); Mean Corpuscular Volume 89.5 fL (80-100); Monocytes Absolute Auto 500 /uL (0-900); Monocytes Percent Auto 6.6 % (3-14); Neutrophils Absolute Auto 4500 /uL (1500-7000); Neutrophils Percent Auto 60.1 % (50-75); Platelet Count 274 X10^3/uL (150-400); Red Blood Cell Count 4.17 X10^6/uL (4.5-5.9); Red Cell Distribution Width 13.1 % (11.6-14.8); White Blood Cell Count 7.5 X10^3/uL (4.5-11.0)
--- NOTE | 2024-04-23 16:05 | PT.IPTN ---
Current Diagnoses Type 2 diabetes mellitus with diabetic polyneuropathy (04/21/24) Type 2 diabetes mellitus with foot ulcer (04/21/24) Type 2 diabetes mellitus with other specified complication (04/21/24) Type 2 diabetes mellitus without complications (04/21/24) Non-pressure chronic ulcer of other part of unspecified foot with unspecified severity (04/21/24) Osteomyelitis, unspecified (04/21/24) [facility] (current) use of insulin (04/21/24) Physical Therapy Treatment Note M2 PT-IP Current Condition Start: 04/22/24 11:09 Freq: NEEDED Status: Active Protocol: Document 04/22/24 10:15 AB (Rec: 04/22/24 11:23 AB [id number]) Physical Therapy Current Condition Current Condition Evaluation Date 04/22/24 Treatment Diagnosis R great toe osteomyelitis; difficulty in walking Onset Date 04/21/24 M3 PT-IP Subjective Start: 04/22/24 11:09 Freq: NEEDED Status: Active Protocol: Document 04/23/24 16:02 AB (Rec: 04/23/24 16:05 AB [id number]) Subjective Physical Therapy Visit Type Type Administrative Note Notes per ortho MD: no surgical intervention needed at this time for pt. WEIGHER PACKING worked with pt today and able to mobilize with FWW and without AD SBA. pt was informed yesterday during PT regarding use of FWW vs without AD. pt lives with family who can assist him if needed. pt is at maximum functional mobility considering current medical condition. no further PT needs. will d/c PT. pt aware. M7 PT-IP Assessment and Plan Start: 04/22/24 11:09 Freq: NEEDED Status: Active Protocol: Document 04/23/24 16:02 AB (Rec: 04/23/24 16:05 AB [id number]) PT Summary Assessment and Plan Frequency of Treatment Frequency Of Treatment Discharge
[2024-04-23] MEDS: INSULIN GLARGINE 100 UNIT/ML 3ML PEN 30 UNIT SUBCUT (21:08)
[2024-04-23] MEDS: GABAPENTIN 600 MG TABLET PO (21:11)
[2024-04-23] MEDS: ATORVASTATIN 20 MG TABLET 10 MG PO (21:11)
[2024-04-24] MEDS: PIPERACILLIN/TAZO 3.375 GM in SODIUM CHLORIDE 0.9% 100 ML IV (04:25)
[2024-04-24] MEDS: SODIUM CHLORIDE 0.9% 1,000 ML 100 ML IV (05:15)
--- NOTE | 2024-04-24 05:22 | PC.NURSE ---
Pt. received 30 units lantus and 2 units of Lispro around 2100. Pt. had no sysptoms but I have Elena DIRECTOR VETERINARY check pt's BG at 0221 with a result of 53. Pt. was given 240 ml of orange juice, BG recheck again at 0253 with a result of 65. Pt. again given 240 ml of orange juice and a peanut butter sandwich. BG recheck at 0345 with a result of 95. During this time pt. had no symptoms. Recommend decrease Lantus dose.
[2024-04-24] MEDS: LEVOTHYROXINE 75 MCG TABLET 150 MCG PO (06:22)
[2024-04-24] MEDS: VANCOMYCIN 1,500 MG/300 ML PIGGYBACK 200 MG IV (07:02)
[2024-04-24] MEDS: VANCOMYCIN TROUGH 1 REQUEST MISC (07:02)
[2024-04-24] MEDS: INSULIN LISPRO 100 UNIT/ML 3ML VIAL SUBCUT ×2 (07:47)
[2024-04-24] MEDS: SERTRALINE 50 MG TABLET 100 MG PO (07:49)
[2024-04-24] MEDS: HEPARIN 5,000 UNIT/ML VIAL 5000 UNIT SUBCUT (07:49)
[2024-04-24] MEDS: GABAPENTIN 300 MG CAPSULE PO (07:49)
[2024-04-24 07:50] VITALS: BP 138/67; PULSE 64
[2024-04-24] MEDS: lisinopriL 20 MG TABLET PO (07:50)
[2024-04-24 08:12] VITALS: BP 138/67; PULSE 64; RESP 18; TEMP 36.7; O2SAT 98
--- NOTE | 2024-04-24 08:52 | P.DS_ITS ---
History of Present Illness History of Present Illness Date Patient Seen: 04/24/24 Time Patient Seen: 08:00 Date of Onset of Symptoms: 04/21/24 Chief complaint: diabetic infected foot wound, sent by PCP Narrative: 64-year-old male with past medical history of insulin-dependent diabetes, hyperlipidemia, hypertension, hypothyroidism, depression and chronic right foot infection presents with worsening right foot infection. Per the patient report, the patient was recently seen by podiatry as outpatient for his right great toe ulcer. The patient had debridement as outpatient with possible abscess. Podiatry however sent the patient to our ER due to concern of underlying osteomyelitis. The patient admit to have some pain in his right foot but otherwise denies any fever, chills, nausea come of omni or diarrhea up here at the patient also denies any chest pain or shortness of breath . In our emergency room, the patient was hemodynamically stable without sign of sepsis. However patients right foot ulcer was reported to be deep and x-ray did show osteomyelitis. Our physician did consult orthopedic surgeon director non profit who agreed that the patient should be hospitalized for IV antibiotic and possible further evaluation by orthopedic surgery. The patient was given IV fluid as well as IV vancomycin and zosyn. Of note patient glucose was in the 500s but no sign of DKA or hyperosmolar. The patient was given 60 unit of lantus and 12 units of lispro. Discharge Providers Provider Date of admission: 04/21/24 21:35 Discharge Date: 04/24/24 Primary care physician: Luis Slade DO Consults: 04/21/24 21:13 Consult to Orthopedic Surgery Stat Comment: Consulting Provider: Justine Caraballo Reason for consultation: Osteomyelitis Has provider been notified: Yes 04/21/24 21:38 Consult to Occupational Therapy Evaluate & Treat Comment: Physician Instructions: Evaluate and treat Consult to Physical Therapy Evaluate & Treat Comment: Physician Instructions: Evaluate and Treat 04/22/24 13:10 Consult to Dietitian, Adult Routine Comment: Reason For Exam: diabetes Consult to Wound Care Routine Comment: Consulting Provider: [facility] Discharge provider: Petros Hernandez MD Summary Hospital Course Discharge Diagnosis: 1. Right big toe diabetic foot ulcer with cellulits, possibly early osteomyelitis. 2. Diabetes mellitus, type 2. 3. Hypertension. 4. Hyperlipidemia. 5. Hypothyroidism Hospital Course: The patient was admitted to medical telemetry inpatient. Orthopedic surgery was consulted and the patient was not felt to need surgical debridement. MRI showed possible cellulitis and ulcer with questionable early osteomyelitis. He was treated with IV vancomycin and Zosyn, with good response. Cultures showed group B streptococcus with a history of MSSA and group B strep in December on cultures. Diabetes was notable for poor long-term control. Emphasized the need to treat diabetes to goal A1C < 6.5% to reduce risk of complications such as #1 above. He was continued on Lantus 30 units twice daily plus Lispro 5 units before meals TID and diabetic diet. However he developed hypoglycemia on this regimen and agreed to followup on his usual Lantus regimen and followup with diabetes education, his primary care provider and the wound care clinic. Status at Discharge Cognitive/behavioral status at discharge: oriented Functional status at discharge: independent ambulation Overall status at discharge: patient is progressing back to baseline Time Spent with Patient Time spent: Greater than 30 minutes Exam Vital Signs (past 8 hours): - 04/24/24 07:50 04/24/24 08:12 Temperature 98.0 F Pulse Rate 64 64 Respiratory Rate 18 Blood Pressure 138/67 138/67 Pulse Oximetry 98 Oxygen Delivery Method Room Air Oxygen Flow Rate 0 Narrative Exam Narrative: GENERAL: The patient is not in any acute distress. Awake and alert. HEENT: Nonicteric sclerae, PERRLA, EOMI. Oropharynx clear. Moist mucous membranes. HEART: Regular rate and rhythm without murmurs. LUNGS: Clear to auscultation bilaterally. ABDOMEN: Soft, positive bowel sounds, nontender. SKIN: Right great toe with approximately 3 cm diabetic deep ulcer noted. Otherwise no rash, no excessive bruising, petechiae, or purpura. EXTREMITIES: No edema. NEUROLOGIC: AxO x 3. Cranial nerves II-XII intact without motor/sensory deficit. Intact light touch in toe tips. Objective Imaging *: Radiologist's impression: Foot xray 04/21/2024: Irregularity of the distal aspect of the 1st proximal phalanx medially with a small area of cortical destruction. Findings are concerning for osteomyelitis. Chest xray 04/21/2024: No acute cardiopulmonary abnormality is seen. MRI left foot 04/22/2024: Soft tissue inflammation and edema most focally around the medial distal 1st ray. Mild edema and enhancement is seen in the distal phalanx and proximal phalangeal head, probably reactive to adjacent soft tissue inflammation/infection versus early osteomyelitis. No findings of confluent T1 signal loss to suggest later stages osteomyelitis/necrotic bone. Background moderate degenerative changes Labs 04/23/24 15:25 04/22/24 03:50 Labs: Laboratory Results - last 24 hr 04/23/24 04/24/24 15:25 06:20 WBC 7.5 RBC 4.17 L Hgb 12.5 L Hct 37.3 L MCV 89.5 MCH 30.0 MCHC 33.5 RDW 13.1 Plt Count 274 Neut % (Auto) 60.1 Lymph % (Auto) 29.2 [place] % (Auto) 6.6 Eos % (Auto) 2.6 Baso % (Auto) 1.5 Neut # (Auto) 4500 Lymph # (Auto) 2200 [place] # (Auto) 500 Eos # (Auto) 200 Baso # (Auto) 100 Vancomycin Trough 14.0 PFSH Medical History Family history of colon cancer Depression Colon polyps (06/10/17) Diabetic polyneuropathy (09/24/17) Chronic fatigue Hypercholesterolemia Hypertension Hypothyroidism Diabetes (~1997) Surgical History History of colonoscopy with polypectomy (06/10/17) Family History Brother No problems noted. Father Respiratory disease Mother Colon cancer Sister No problems noted. Family/Other No problems noted. Family/Other No problems noted. Social History marital status: household members: spouse Smoking Status: Former smoker Discharge Plan Discharge Plan Patient Disposition: Home Provider Discharge Comment: Followup with Dr. Slade and [facility] Care [facility] this week Discharge orders & Medications Prescriptions: New (DME) Glucose monitor See Rx Instructions .Route .MEDSUPPLY Qty: 1 0RF Rx Instructions: As directed (DME) Glucose test strips See Rx Instructions .Route .MEDSUPPLY Qty: 100 0RF Rx Instructions: As directed QID cefdinir 300 mg capsule 300 mg PO BID Qty: 20 0RF (DME) lancets Misc See Rx Instructions .Route Qty: 200 0RF Rx Instructions: QID Continued simvastatin [Zocor] 20 mg tablet 20 mg PO HS Qty: 90 3RF lisinopril 20 mg tablet 20 mg PO Q DAY Qty: 90 1RF Rx Instructions: PT NEED TO BE SEEN BEFORE NEXT RENEWAL sertraline 100 mg tablet 100 mg PO QDAY Qty: 90 0RF Rx Instructions: pt will need to be seen before next renewal metformin 1,000 mg tablet 1,000 mg PO BID Qty: 180 3RF pioglitazone [Actos] 15 mg tablet 15 mg PO DAILY Qty: 90 3RF (DME) pen needle, diabetic [Pen Needle] 31 gauge x 5/16 needle See Rx Instructions .Route Qty: 100 2RF Rx Instructions: As directed, to be used twice daily to administer insulin levothyroxine 150 mcg tablet 150 mcg PO DAILY gabapentin 600 mg Tablet 600 mg PO BEDTIME gabapentin [Neurontin] 300 mg capsule 300 mg PO QAM Discontinued Glucose: Home Monitoring Kit 0 kit QID Qty: 1 0RF No Action (DME) Glucose: Test Strips 0 .Route .MEDSUPPLY Qty: 200 5RF Dose Instruction: As directed Rx Instructions: CHECK BLOOD SUGAR 4 TIMES A DAY Follow up/Referrals: Luis Slade, [Primary Care Provider] - Visit Report/Discharge Packet Stand Alone Forms: Patient Portal/API Discharge Data Primary Care Provider: Luis Slade Quality MIPS - Admit I confirm the patient?s Advance Care Plan is present, Code status is documented, Surrogate decision maker is in patient?s record [If Yes, STOP here]: Yes MIPS - Meds 'Current medications' to include all prescriptions, glun-cff-rezzume products, herbals, cannabis/cannabidiol products, and vitamin/mineral/dietary (nutritional) supplements. I have utilized all available resources to obtain, update, or review the patient?s current medications. [If Yes, STOP here]: Yes MIPS - DC The patient has a history of heart transplant or Left Ventricular Assist Device (LVAD). If yes, STOP here.: No The patient has current or prior documentation of left ventricular ejection fraction (LVEF) less than or equal to 40%, or moderate or severely depressed left ventricular systolic function.: No A. The patient was prescribed or already taking an Angiotensin-Converting Enzyme (AMBER) Inhibitor, or Angiotensin Receptor Denisse (ARB).: Yes B. The patient was prescribed or already taking a beta-denisse. [If Yes to Both A & B, STOP here]: No Patient not prescribed/taking AMBER or ARB, no reason given.: No Patient not prescribed/taking beta-denisse, no reason given.: No PROFEE Charge Codes Discharge inpatient/observation: [id number]
--- NOTE | 2024-04-24 10:21 | PC.NURSE ---
Patient d/c instructions reviewed with emphasis on diabetes management, diet and freq. blood sugar checks. Patient and spouse are aware to f/u with PCP and wound care this week. Patient dressing was changed and patient was given 2 additional bandages if drg. changes are nec. prior to being seen with wound care. Patient desires to walk out of hosp. vs using a wc. Patient was escorted down to private vehicle with by PRODUCT SAFETY TECHNICAL ASSISTANT on staff. Patient left in stable condition, walking and talking, VSS.
--- NOTE | 2024-04-24 10:30 | CM.DPNOTE ---
DCP Note TOOL MACHINE SET UP OPERATOR reviewed EMR. Per RN, plan is to dc on PO abx, no CM needs Per chart review, f/u with load blocker and podiatry already established. Pt left prior to being seen by this TOOL MACHINE SET UP OPERATOR P: home with family support and OP follow up. No CM needs. CM team will follow as needed SHELTON Lees
== END 2024-04-24 10:00 | disposition home or self-care (01) | DRG 638 ==
LOC: ED 19:29 → AC 21:35
PROVIDERS: Emergency Medicine; Orthopaedic Surgery; Admitting Provider Internal Medicine; Emergency Provider Emergency Medicine; PCP Family Medicine; Referring Provider Emergency Medicine; Visit Provider Internal Medicine
DX: E11.621 Type 2 diabetes mellitus with foot ulcer (principal); M86.171 Other acute osteomyelitis, right ankle and foot; E11.65 Type 2 diabetes mellitus with hyperglycemia; I10 Essential (primary) hypertension; E78.5 Hyperlipidemia, unspecified; E03.9 Hypothyroidism, unspecified; E11.42 Type 2 diabetes mellitus with diabetic polyneuropathy; L97.519 Non-pressure chronic ulcer of other part of right foot with unspecified severity; L03.031 Cellulitis of right toe; B95.1 Streptococcus, group B, as the cause of diseases classified elsewhere; F32.A Depression, unspecified; Z79.84 Long term (current) use of oral hypoglycemic drugs; Z87.891 Personal history of nicotine dependence; Z79.4 Long term (current) use of insulin
CPT/HCPCS: 36415; 71045; 73630; 73720; 80048; 80053; 80202; 82962; 83605; 83690; 83880; 84145; 84484; 85025; 85610; 85651; 86140; 87070; 87075; 87077; 87147; 87205; 96365; 96372; 96375; 97116; 97162; 99283; 99285; A9579; J1644; J1815; J2543

== ENCOUNTER → 2024-04-25 14:10 | Outpatient (CLI) | payer MEDICARE, SELFPAY ==
[2024-04-21 23:18] VITALS: BMI 28.5
== END ==
PROVIDERS: PCP Family Medicine; Referring Provider Internal Medicine; Visit Provider Surgery
DX: L97.512 Non-pressure chronic ulcer of other part of right foot with fat layer exposed (principal); E11.621 Type 2 diabetes mellitus with foot ulcer; M86.171 Other acute osteomyelitis, right ankle and foot; I10 Essential (primary) hypertension
CPT/HCPCS: 11042; 99213; 99214

== ENCOUNTER → 2024-05-04 13:04 | Outpatient (CLI) | payer MEDICARE, SELFPAY ==
[2024-04-21 23:18] VITALS: BMI 28.5
== END ==
PROVIDERS: PCP Family Medicine; Referring Provider Internal Medicine; Visit Provider Surgery
DX: E11.621 Type 2 diabetes mellitus with foot ulcer (principal); E11.42 Type 2 diabetes mellitus with diabetic polyneuropathy; L97.512 Non-pressure chronic ulcer of other part of right foot with fat layer exposed; M86.171 Other acute osteomyelitis, right ankle and foot
CPT/HCPCS: 11042

== ENCOUNTER → 2024-05-10 09:17 | Outpatient (CLI) | payer MEDICARE, SELFPAY ==
[2024-04-21 23:18] VITALS: BMI 28.5
== END ==
PROVIDERS: PCP Family Medicine; Referring Provider Internal Medicine; Visit Provider Surgery
DX: L97.512 Non-pressure chronic ulcer of other part of right foot with fat layer exposed (principal); E11.621 Type 2 diabetes mellitus with foot ulcer; E11.42 Type 2 diabetes mellitus with diabetic polyneuropathy; M86.171 Other acute osteomyelitis, right ankle and foot
CPT/HCPCS: 11042

== ENCOUNTER → 2024-05-17 13:02 | Outpatient (CLI) | payer MEDICARE, SELFPAY ==
[2024-04-21 23:18] VITALS: BMI 28.5
== END ==
PROVIDERS: PCP Family Medicine; Referring Provider Internal Medicine; Visit Provider Surgery
DX: L97.512 Non-pressure chronic ulcer of other part of right foot with fat layer exposed (principal); E11.621 Type 2 diabetes mellitus with foot ulcer; E11.42 Type 2 diabetes mellitus with diabetic polyneuropathy; M86.171 Other acute osteomyelitis, right ankle and foot; Z79.899 Other long term (current) drug therapy
CPT/HCPCS: 11042

== ENCOUNTER → 2024-05-20 08:05 | Outpatient (CLI) | payer MEDICARE, SELFPAY ==
[2024-04-21 23:18] VITALS: BMI 28.5
[2024-05-20 09:51] LABS: Hemoglobin A1C% w Est Avg Glu 9.4 % (4.0-6.0)
[2024-05-20 10:04] LABS: Cholesterol 173 mg/dL (140-199); HDL Cholesterol 64 mg/dL (40-60); LDL Cholesterol Calculated 80 mg/dL (<100); Triglycerides 147 mg/dL (35-150)
[2024-05-20 10:17] LABS: Free T4, Direct Thyroxine 1.37 ng/dL (0.78-2.19)
[2024-05-20 10:31] LABS: Thyroid Stimulating Hormone 0.738 uIU/mL (0.47-4.68)
[2024-05-20 11:13] LABS: Creatinine Urine Random 110.46 mg/dL
[2024-05-20 11:21] LABS: Microalbumin Urine Random < 0.6 mg/dL (0-1.6)
== END ==
PROVIDERS: PCP Family Medicine; Referring Provider Family Medicine; Visit Provider Family Medicine
DX: E11.42 Type 2 diabetes mellitus with diabetic polyneuropathy (principal); I10 Essential (primary) hypertension; E03.9 Hypothyroidism, unspecified; Z79.4 Long term (current) use of insulin; E78.00 Pure hypercholesterolemia, unspecified; F34.1 Dysthymic disorder; Z80.0 Family history of malignant neoplasm of digestive organs
CPT/HCPCS: 36415; 80061; 82043; 82570; 83036; 84439; 84443

== ENCOUNTER → 2024-05-23 08:42 | Outpatient (CLI) | payer MEDICARE, SELFPAY ==
[2024-04-21 23:18] VITALS: BMI 28.5
== END ==
PROVIDERS: PCP Family Medicine; Referring Provider Internal Medicine; Visit Provider Surgery
DX: E11.621 Type 2 diabetes mellitus with foot ulcer (principal); E11.42 Type 2 diabetes mellitus with diabetic polyneuropathy; L97.512 Non-pressure chronic ulcer of other part of right foot with fat layer exposed; M86.171 Other acute osteomyelitis, right ankle and foot; Z79.899 Other long term (current) drug therapy
CPT/HCPCS: 11042; 99213

== ENCOUNTER → 2024-05-25 09:46 | Outpatient (CLI) | payer MEDICARE, SELFPAY ==
[2024-04-21 23:18] VITALS: BMI 28.5
--- NOTE | 2024-05-25 09:57 | DIAB.MNT ---
Initial Diabetes Medical Nutrition Therapy Assessment Name: Bg Trujillo Date: 05/25/24 Time: 100a Dx: Type II Diabetes Provider: Berlin Stroud presents for initial Dm visit with spouse, Anusha. States he has had DM for about 30 years. Some confusion reported on whether he has T1 or T2. States a provider has mentioned T1, though all recent notes indicate T2 diagnosis. Endorses insulin therapy since diagnosis. Stopped taking humalog with meals during 2019 due to hypoglycemia and cost. Recent h/o foot ulcer and infection. Seeing wound care and reports improving foot wound. Taking antibiotics until end of May per report. Taking probiotic at recommendation of ID provider per report. Denies any diarrhea, though endorses soft stool. Recent very low BG, unsure of value d/t no testing, but predicts in alex 40s due to severity of symptoms, unable to move, was sweaty, lethargic, cold. Treated with 8oz OJ and hard candies. Interested in CGM and nutrition education. Previous h/o nutrition education at DM ed program in , found unhelpful in class setting. Confused about CHO counting and portions. Spouse reading DM [employer] book. Tracks food and BG. Questions about oatmeal nutrition. Questions about types and portions of fruit. Food Journal: B: pancake with mulligan L: chips and dip, crispy burrito D: wonton soup with bbq pork and lumpia B: muffin and eggs L: tuna sandwich, chips D: Broccoli, rice, chicken, cheese break milk Anthropometrics: Ht: 6' Wt: 209.5% 04/2024 Physical Activity: Reports staying active with [employer]. Self-Monitoring Blood Glucose: FBG often in goal or low. Pre meal and HS readings always above goal. May benefit from additional DM med, ie mealtime insulin again? pump therapy? Date Pre Post Pre Post Pre Post HS 05/19 173 325 133 218 05/20 60 233 302 277 05/21 118 162 05/22 131 285 284 342 05/23 130 364 391 373 05/24 71 222 295 326 05/25 84 Diabetes Medications: 1000mg Metformin BID 15mg Actos 30u Glargine BID Pertinent Labs: HGA1c: 10.8% 05/2018 8.9% 12/2023 9.4% 04/2024 Past Medical History: (Last Updated 05/13/24 @ 20:13 by Jenni Pastor) Bladder cancer Carpal tunnel syndrome Chronic fatigue Colon polyps (06/10/17) Depression Diabetes (~1997) Diabetic polyneuropathy (09/24/17) Mike Mills MD, [facility] Family history of colon cancer Foot pain Hearing decreased Hypercholesterolemia Hypertension Hypothyroidism Myelofibrosis (~2017) Neuropathy Feet and hands Shoulder pain Nutrition Rx: Carbohydrates: Meal: 45g Snack:15-30g Nutrition Diagnosis: - Nutrition and food related knowledge deficit r/t limited MNT aeb pt report Intervention: This participant was very receptive. Provided appropriate educational handouts. Discussed the following topics: Completed intake assessment. Discussed barriers to care. HgA1c history and rationale for goal CGM Sample and process for acquisition Reviewed CGM use and equipment Discussed when to check blood sugars using finger stick Reviewed high and low blood sugar signs/symptoms and treatment options Provided education for self-administration of CGM placement Educated patient on alarm settings Discussed how to remove and dispose of equipment Plate Method, impact of macronutrients on blood sugar, meal timing, carbohydrate counting, pairing macronutrients and spreading out carbohydrates for better blood glucose management Recommended servings for carbohydrates at meals and snacks Heart health nutrition Brainstormed appropriate meal plan based on food preferences Potential for additional medication management Types of Dm and brief description of each Created SMART goals for patient self-care and success. Goals: Wear CGM x 10 days Limit CHO portions to 45g or less at meals Pair CHO with protein at meals/snacks Follow-up: JOEY THOMPSON follow-up in 2-3 weeks Evelyn Fry RDN, DONNA Certified Diabetes Care and Media Sales Representative P: [phone] Thank you for this referral
== END ==
PROVIDERS: PCP Family Medicine; Referring Provider Family Medicine
DX: E11.42 Type 2 diabetes mellitus with diabetic polyneuropathy (principal); Z79.84 Long term (current) use of oral hypoglycemic drugs; Z79.4 Long term (current) use of insulin; Z71.3 Dietary counseling and surveillance
CPT/HCPCS: 97802

== ENCOUNTER → 2024-05-27 09:59 | Outpatient (CLI) | payer MEDICARE, SELFPAY ==
[2024-04-21 23:18] VITALS: BMI 28.5
[2024-05-27 10:48] LABS: Add Manual Diff / Slide Review NO; Basophils Absolute Auto 100 /uL (0-100); Basophils Percent Auto 1.9 % (0-2); Eosinophils Absolute Auto 500 /uL (0-450); Eosinophils Percent Auto 5.9 % (2-4); Hematocrit 40.8 % (41-53); Hemoglobin 13.9 g/dL (13.5-17.5); Lymphocytes Absolute Auto 2500 /uL (1100-4500); Lymphocytes Percent Auto 30.8 % (25-40); Mean Corpuscular Hemoglobin 30.2 PG (26-34); Mean Corpuscular Volume 88.7 fL (80-100); Monocytes Absolute Auto 500 /uL (0-900); Monocytes Percent Auto 6.1 % (3-14); Neutrophils Absolute Auto 4400 /uL (1500-7000); Neutrophils Percent Auto 55.3 % (50-75); Platelet Count 278 X10^3/uL (150-400); Red Blood Cell Count 4.59 X10^6/uL (4.5-5.9); Red Cell Distribution Width 13.1 % (11.6-14.8)
[2024-05-27 10:57] LABS: Hemoglobin A1C% w Est Avg Glu 9.5 % (4.0-6.0)
[2024-05-27 11:06] LABS: Alanine Aminotransferase 20 IU/L (<50); Albumin 4.5 g/dL (3.5-5.0); Albumin Globulin Ratio 1.8 (1.0-2.8); Alkaline Phosphatase 60 U/L (38-126); Aspartate Aminotransferase 21 IU/L (17-59); BUN Creatinine Ratio 22.1 (6-22); Bilirubin Total 0.5 mg/dL (0.2-1.3); Blood Urea Nitrogen 19 mg/dL (9-20); Calcium 9.7 mg/dL (8.4-10.2); Carbon Dioxide 29 mmol/L (22-32); Chloride 102 mmol/L (98-107); Estimated Glomerular Filt Rate > 60 mL/min (>60); Globulin 2.5 g/dL (1.7-4.1); Glucose 75 mg/dL (80-110); HEMOLYSIS < 15 (0-50); Potassium 5.2 mmol/L (3.4-5.1); Sodium 137 mmol/L (137-145)
[2024-05-27 11:38] LABS: Thyroid Stimulating Hormone 0.516 uIU/mL (0.47-4.68)
== END ==
PROVIDERS: PCP Family Medicine; Referring Provider Family Medicine; Visit Provider Family Medicine
DX: E11.42 Type 2 diabetes mellitus with diabetic polyneuropathy (principal); Z79.4 Long term (current) use of insulin; I10 Essential (primary) hypertension; E03.9 Hypothyroidism, unspecified; R53.82 Chronic fatigue, unspecified; E78.00 Pure hypercholesterolemia, unspecified; D50.8 Other iron deficiency anemias
CPT/HCPCS: 36415; 80053; 83036; 84439; 84443; 85025

== ENCOUNTER → 2024-05-31 12:00 | Outpatient (CLI) | payer MEDICARE, SELFPAY ==
[2024-04-21 23:18] VITALS: BMI 28.5
== END ==
LOC: WC 12:01
PROVIDERS: PCP Family Medicine; Referring Provider Internal Medicine; Visit Provider Surgery
DX: E11.621 Type 2 diabetes mellitus with foot ulcer (principal); E11.42 Type 2 diabetes mellitus with diabetic polyneuropathy; L97.512 Non-pressure chronic ulcer of other part of right foot with fat layer exposed; M86.171 Other acute osteomyelitis, right ankle and foot; Z79.899 Other long term (current) drug therapy
CPT/HCPCS: 11042

== ENCOUNTER → 2024-06-07 09:18 | Outpatient (CLI) | payer MEDICARE, SELFPAY ==
[2024-04-21 23:18] VITALS: BMI 28.5
== END ==
PROVIDERS: PCP Family Medicine; Referring Provider Internal Medicine; Visit Provider Surgery
DX: E11.621 Type 2 diabetes mellitus with foot ulcer (principal); E11.42 Type 2 diabetes mellitus with diabetic polyneuropathy; L84 Corns and callosities; M86.171 Other acute osteomyelitis, right ankle and foot; Z79.899 Other long term (current) drug therapy
CPT/HCPCS: 11042

== ENCOUNTER → 2024-06-14 10:28 | Outpatient (CLI) | payer MEDICARE, SELFPAY ==
[2024-04-21 23:18] VITALS: BMI 28.5
== END ==
PROVIDERS: PCP Family Medicine; Referring Provider Family Medicine; Visit Provider Surgery
DX: E11.628 Type 2 diabetes mellitus with other skin complications (principal); L84 Corns and callosities
CPT/HCPCS: 99213

== ENCOUNTER → 2024-06-17 14:52 | Outpatient (CLI) | payer MEDICARE, SELFPAY ==
[2024-04-21 23:18] VITALS: BMI 28.5
--- NOTE | 2024-06-30 09:39 | DIAB.FU ---
Addendum entered by Evelyn Fry 06/30/24 09:42: ED visit for hypoglycemia a few days after this visit. RD called pt and spoke to Anusha. Reported events of hypoglycemia in the middle of the night. May be interested in insulin pump to reduce these events. Moved appt from next week to tomorrow. Original Note: Follow-up Diabetes Education Assessment: Personal CGM Placement Name: Bg Trujillo Date: 06/17/24 Time: 3-345p Dx: Type II Diabetes Brought personal CGm today for assistance with placement and education. Started meal time insulin 1-4u at dinner. Past Medical History: (Last Reviewed 06/16/24 @ 09:23 by Luis Slade DO) Bladder cancer 1989' Carpal tunnel syndrome Chronic fatigue Colon polyps (06/10/17) Depression Diabetes (~1997) Diabetic polyneuropathy (09/24/17) Mike Mills MD, [facility] Family history of colon cancer Foot pain Hearing decreased Hypercholesterolemia Hypertension Hypothyroidism Myelofibrosis (~2017) Neuropathy Feet and hands Shoulder pain Intervention: This participant was very receptive. Provided appropriate educational handouts. Discussed the following topics: Reviewed CGM use and equipment Discussed when to check blood sugars using finger stick Reviewed high and low blood sugar signs/symptoms and treatment options Provided education for self-administration of CGM placement Educated patient on alarm settings Discussed when to replace equipment and disposal Goals: Wear personal CGM Follow-up: JOEY THOMPSON follow-up in 2-3 weeks Evelyn Fry RDN, DONNA Certified Diabetes Care and Finisher Map And Chart P: [phone] Thank you for this referral
== END ==
LOC: DIET 14:53
PROVIDERS: PCP Family Medicine; Referring Provider Family Medicine
DX: E11.42 Type 2 diabetes mellitus with diabetic polyneuropathy (principal); Z71.3 Dietary counseling and surveillance; Z68.28 Body mass index [BMI] 28.0-28.9, adult; Z79.4 Long term (current) use of insulin; Z79.84 Long term (current) use of oral hypoglycemic drugs
CPT/HCPCS: 95249

== ENCOUNTER 2024-06-22 09:53 | Emergency (ER) | payer MEDICARE, SELFPAY ==
[2024-04-21 23:18] VITALS: BMI 28.5
[2024-06-22] VITALS (22 sets, daily range): BP systolic 134–188; BP diastolic 65–98; PULSE 55–90; RESP 12–24; O2SAT 96–100; BMI 29.8
--- NOTE | 2024-06-22 10:04 | ED.GENADULT ---
HPI - General Adult General Chief complaint: Diabetic Problem Stated complaint: Going into Diabetic Coma Time Seen by Provider: 06/22/24 09:59 History of Present Illness HPI narrative: 64-year-old male with history of diabetes, recent new medical provider, changes in his insulin regimen, most recently now taking a med day insulin dose when he did not use to take an insulin mid day. This morning he took his usual morning insulin regimen dose, felt weak, glucose levels read ?low? without giving an actual number, numerous oral sugar doses given, glucose level 41, no seizure shaking activity. But decreased mental status, seems to be improving. No fevers or chills. Denies pain to chest abdomen. Related Data Home Medications Medication Instructions Recorded Confirmed levothyroxine 150 mcg tablet 150 mcg PO DAILY 04/11/24 06/16/24 gabapentin 600 mg tablet 600 mg PO BEDTIME 04/21/24 06/16/24 gabapentin 300 mg capsule 900 mg PO QAM 05/03/24 06/16/24 (Neurontin) Previous Rx's Medication Instructions Recorded sertraline 100 mg tablet 100 mg PO QDAY #90 tabs 07/21/19 metformin 1,000 mg tablet 1,000 mg PO BID #180 tabs 04/14/24 pioglitazone 15 mg tablet (Actos) 15 mg PO DAILY #90 tabs 04/14/24 pen needle, diabetic 31 gauge x #100 ea 04/15/2412/09 (Pen Needle) blood-glucose meter #1 ea 04/25/24 lancets 21 gauge (BD Microtainer #100 ea 04/25/24 Lancet) simvastatin 20 mg tablet (Zocor) 20 mg PO HS #90 tabs 05/03/24 amlodipine 2.5 mg tablet 2.5 mg PO QPM #30 tabs 05/27/24 hydrochlorothiazide 12.5 mg tablet 12.5 mg PO QAM #30 tabs 05/27/24 insulin aspart U-100 100 unit/mL 5 unit (0.05 mL) SUBCUT QACDINNER 05/27/24 (3 mL) subcutaneous pen (Novolog #15 mL FlexPen U-100 Insulin aspart) insulin glargine 100 unit/mL (3 34 unit (0.34 mL) SUBCUT BID blood 05/27/24 mL) subcutaneous pen (Lantus sugar control #15 mL Solostar U-100 Insulin) blood sugar diagnostic (Blood #100 ea 06/02/24 Glucose Test strips) Allergies Allergy/AdvReac Type Severity Reaction Status Date / Time No Known Drug Allergies Allergy Verified 06/22/24 10:13 Review of Systems Review of Systems Narrative: see HPI Patient History Medical History Neuropathy Hearing decreased Shoulder pain Foot pain Carpal tunnel syndrome Myelofibrosis (~2017) Bladder cancer Family history of colon cancer Depression Colon polyps (06/10/17) Diabetic polyneuropathy (09/24/17) Chronic fatigue Hypercholesterolemia Hypertension Hypothyroidism Diabetes (~1997) Surgical History History of colonoscopy with polypectomy (06/10/17) Family History Brother History of heart disease Hypertension Father Respiratory disease History of heart disease Mother Colon cancer Hypertension Sister No problems noted. Family/Other No problems noted. Family/Other No problems noted. Social History marital status: household members: spouse Smoking Status: Former smoker Smoking Status: Former smoker Substance Use Type: marijuana Exam Narrative Exam Narrative: GENERAL: Well-developed patient, in mild distress. HEAD: Atraumatic. Normocephalic. EYES: Pupils equal round and reactive. Extraocular motions intact. No scleral icterus. No injection or drainage. ENT: Nose without bleeding, purulent drainage. Throat without erythema, tonsillar hypertrophy or exudate. Airway patent. NECK: Trachea midline. Non tender CARDIOVASCULAR: Regular rate and rhythm without murmurs, gallops, or rubs. RESPIRATORY: Clear to auscultation. Breath sounds equal bilaterally. No wheezes, rales, or rhonchi. GASTROINTESTINAL: Abdomen soft, non-tender, nondistended. EXTREMITIES: No edema or joint tenderness. BACK: Nontender without deformity or crepitance. No flank tenderness. NEURO: AOx3. Motor functions grossly nonfocal SKIN: No rash or erythema of visible areas Initial Vital Signs Initial Vital Signs: Vital Signs Pulse Rate 80 06/22/24 09:54 Respiratory Rate 14 06/22/24 09:54 Blood Pressure 169/74 H 06/22/24 09:54 Pulse Oximetry 98 06/22/24 09:54 Oxygen Delivery Method Room Air 06/22/24 09:54 Course Orders Ordered: ED Orders 06/22/24 11:12 EKG-12 Lead Stat 06/22/24 13:10 BMP [Basic Metabolic Panel] Stat 06/22/24 15:00 Potassium Stat Discontinued Medications Dextrose (Dextrose 50 % In Water 25 Gm/50 Ml Syringe) 25 gm IV NOW ONE Stop: 06/22/24 10:13 Last Admin: 06/22/24 10:19 Dose: 25 gm Documented By: KARLA Dextrose (Dextrose 5% Water) 1,000 mls @ 150 mls/hr IV CONT AISHWARYA Last Infusion: 06/22/24 16:27 Dose: Infused Documented By: Admin: 06/22/24 10:20 Dose: 150 mls/hr Documented By: KARLA POTASSIUM CHLORIDE IN WATER (Potassium Cl 10 Meq/100 Ml Antonia) 10 meq in 100 mls @ 100 mls/hr IV Q1H AISHWARYA Stop: 06/22/24 13:29 Last Infusion: 06/22/24 14:29 Dose: Infused Documented By: Admin: 06/22/24 13:01 Dose: 100 mls/hr Documented By: Infusion: 06/22/24 12:52 Dose: Infused Documented By: Admin: 06/22/24 11:37 Dose: 100 mls/hr Documented By: MIRTHA Sodium Chloride (Normal Saline 0.9%) 1,000 mls @ 1,000 mls/hr IV BOLUS ONE Stop: 06/22/24 17:12 Last Admin: 06/22/24 16:40 Dose: 1,000 mls/hr Documented By: MIRTHA Insulin Human Regular (Insulin Regular 100 Unit/Ml 3 Ml Vial) 5 unit SUBCUT NOW ONE Stop: 06/22/24 16:41 Last Admin: 06/22/24 17:09 Dose: 5 unit Documented By: MIRTHA Co-signed By: KOKO Potassium Chloride (Potassium Chloride 20 Meq/15 Ml Udc) 40 meq PO NOW ONE Stop: 06/22/24 11:26 Last Admin: 06/22/24 11:37 Dose: 40 meq Documented By: MIRTHA Vital Signs Vital signs: Vital Signs - 8 hr 06/22/24 11:30 06/22/24 11:30 06/22/24 12:00 Pulse Rate 57 L 59 L Respiratory Rate 16 18 Blood Pressure 147/66 H Pulse Oximetry 99 06/22/24 12:30 06/22/24 12:30 06/22/24 13:00 Pulse Rate 58 L 55 L Respiratory Rate 16 16 Blood Pressure 149/69 H Pulse Oximetry 06/22/24 13:00 06/22/24 13:30 06/22/24 13:30 Pulse Rate 62 Respiratory Rate 16 Blood Pressure 134/65 141/68 H Pulse Oximetry 06/22/24 14:00 06/22/24 14:00 06/22/24 14:30 Pulse Rate 83 69 Respiratory Rate 16 18 Blood Pressure 188/98 H Pulse Oximetry 06/22/24 14:30 06/22/24 15:00 06/22/24 15:30 Pulse Rate 74 70 Respiratory Rate 18 19 Blood Pressure 158/79 H Pulse Oximetry 100 06/22/24 16:00 06/22/24 16:23 06/22/24 16:23 Pulse Rate 73 74 Respiratory Rate 15 12 Blood Pressure 166/81 H Pulse Oximetry 97 100 06/22/24 16:30 06/22/24 17:00 06/22/24 17:30 Pulse Rate 72 70 71 Respiratory Rate 19 17 Blood Pressure Pulse Oximetry 100 100 99 06/22/24 18:00 06/22/24 18:30 06/22/24 18:55 Pulse Rate 90 81 74 Respiratory Rate 24 15 Blood Pressure Pulse Oximetry 100 99 99 06/22/24 18:55 Pulse Rate Respiratory Rate Blood Pressure 154/74 H Pulse Oximetry Medical Decision Making Lab Data Lab results reviewed: Yes I reviewed the patient's lab results. Lab results narrative: White blood cell count 35945, hemoglobin 14.6, platelets adequate. Potassium 2.9 low, sodium normal, BUN creatinine normal, glucose 53 also low. Liver functions unremarkable. 06/22/24 10:09 06/22/24 15:00 Labs: Lab Results 06/22/24 06/22/24 06/22/24 Range/Units 10:09 13:10 15:00 WBC 11.5 H (4.5-11.0) X10^3/uL RBC 4.93 (4.5-5.9) X10^6/uL Hgb 14.6 (13.5-17.5) g/dL Hct 43.6 (41-53) % MCV 88.4 (80-100) fL MCH 29.6 (26-34) PG MCHC 33.4 (30-36) % RDW 13.3 (11.6-14.8) % Plt Count 349 (150-400) X10^3/uL Neut % (Auto) 48.6 L (50-75) % Lymph % (Auto) 38.6 (25-40) % [place] % (Auto) 6.2 (3-14) % Eos % (Auto) 5.3 H (2-4) % Baso % (Auto) 1.3 (0-2) % Neut # (Auto) 5600 (3547-3842) /uL Lymph # (Auto) 4400 (9799-6941) /uL [place] # (Auto) 700 (0-900) /uL Eos # (Auto) 600 H (0-450) /uL Baso # (Auto) 200 H (0-100) /uL Sodium 142 135 L (137-145) mmol/L Potassium 2.9 L D 5.7 H D 5.6 H (3.4-5.1) mmol/L Chloride 104 100 (98-107) mmol/L Carbon Dioxide 23 27 (22-32) mmol/L BUN 20 20 (9-20) mg/dL Creatinine 0.94 0.84 (0.66-1.25) mg/dL Estimated GFR > 60 > 60 (>60) mL/min BUN/Creatinine Ratio 21.3 23.8 H (6-22) Glucose 53 L D 214 H D (80-110) mg/dL Calcium 10.0 9.4 (8.4-10.2) mg/dL Total Bilirubin 0.5 (0.2-1.3) mg/dL AST 34 (17-59) IU/L ALT 33 (<50) IU/L Alkaline Phosphatase 68 (38-126) U/L Total Protein 8.0 (6.3-8.2) g/dL Albumin 4.9 (3.5-5.0) g/dL Globulin 3.1 (1.7-4.1) g/dL Albumin/Globulin Ratio 1.6 (1.0-2.8) Point of Care Testing Glucose POC 284 Point of care testing: Point of Care Testing Glucose POC 284 ECG Data Attestation: I personally reviewed and interpreted this ECG as follows: Interpretation: Sinus bradycardia with rate of 50, no obvious ST segment elevation or depressions. [place] 138, QRS 94, QTC 433. MDM Narrative Medical decision making narrative: 64-year-old male history of diabetes, altered mental status, low sugar readings at home, oral glucose tablets given, initial glucose 40s here, IV dextrose bolus, IV dextrose infusion, labs sent. Improvement in mental status, conversant, no seizure activity. Lab results pending. Labs show glucose 53 before above boluses, current infusion, mental status improved, we will do oral substrates to attempt wean off of IV dextrose infusion. Low potassium noted, IV potassium and oral potassium repletion ordered. Repeat BMP shows potassium 5.7, we will repeat potassium level. Repeat level 5.6 also elevated. We will give p.o. Lokelma, repeat glucose 300s, subcutaneous 5 units regular insulin, IV fluid bolus. Glucose 200s. Patient alert, cooperative, wants to go home, home with family. We discussed his insulin regimen. Consider long-acting insulin 30 units same dose in the morning, consider decreasing long-acting insulin evening dose from 30 units to 10 units, to see if his morning glucose measurements are not as low. Discuss regimen with his PCP advised. Consider repeat serum potassium check in follow up. Discharge home with family, improved. Discharge Plan Departure Patient Disposition: Home Clinical Impression: Hypoglycemia, Hypokalemia, History of diabetes mellitus Instructions: DI for Diabetes Type 1 -- Adult Activity Restrictions/Additional Instructions: Unresponsive episode in context of low blood sugar in the 40s, recent change in diabetic regimen taking long-acting insulin 30 units in the morning and in the evening, with most recent addition of NovoLog to use after dinner if sugar is high. Frequent morning low blood sugars noted. During the course here you had sugars that were low, treated with IV sugar infusion and bolus therapies, potassium initially remarkably low, IV and oral potassium given, then potassium level slightly high, IV fluids and subcutaneous insulin when sugars were 300s were subsequently given. Potassium and sugar levels more stabilized. Worried increased risk of further hypoglycemic episodes with your current diabetes regimen. Consider taking your long-acting insulin same dose in the morning but reduce your evening dose to 10 units instead of 30 units for now, check your morning sugar levels. Consider repeating your serum blood potassium level in clinic follow up. Discuss your insulin dosing regimen with your regular doctor tomorrow. Return to this/nearest emergency department for any change worsening symptoms or any concerns prior Prescriptions: No Action sertraline 100 mg tablet 100 mg PO QDAY Qty: 90 0RF Rx Instructions: pt will need to be seen before next renewal metformin 1,000 mg tablet 1,000 mg PO BID Qty: 180 3RF pioglitazone [Actos] 15 mg tablet 15 mg PO DAILY Qty: 90 3RF (DME) pen needle, diabetic [Pen Needle] 31 gauge x 5/16 needle See Rx Instructions .Route Qty: 100 2RF Rx Instructions: As directed, to be used twice daily to administer insulin (DME) blood-glucose meter Misc See Rx Instructions .Route Qty: 1 0RF Rx Instructions: check blood sugar times daily (DME) lancets [BD Microtainer Lancet] 21 gauge misc See Rx Instructions .Route Qty: 100 3RF Rx Instructions: Check blood sugar 4 times daily simvastatin [Zocor] 20 mg tablet 20 mg PO HS Qty: 90 0RF (DME) Blood Glucose Test Strip See Rx Instructions .Route Qty: 100 6RF Rx Instructions: check blood sugar 5-6 times daily levothyroxine 150 mcg tablet 150 mcg PO DAILY insulin glargine [Lantus Solostar U-100 Insulin] 100 unit/mL (3 mL) insulin pen 34 unit SUBCUT BID Qty: 15 3RF Rx Instructions: start injecting 34 units in the morning and 26 units at night insulin aspart U-100 [Novolog FlexPen U-100 Insulin] 100 unit/mL (3 mL) insulin pen 5 unit SUBCUT QACDINNER Qty: 15 2RF Rx Instructions: 5 units before dinner hydrochlorothiazide 12.5 mg tablet 12.5 mg PO QAM Qty: 30 2RF amlodipine 2.5 mg tablet 2.5 mg PO QPM Qty: 30 2RF Rx Instructions: take at night gabapentin 600 mg Tablet 600 mg PO BEDTIME gabapentin [Neurontin] 300 mg capsule 900 mg PO QAM Referrals: Luis Slade DO [Primary Care Provider] - Stand Alone Forms: Patient Portal/API/Survey
[2024-06-22 10:16] LABS: Add Manual Diff / Slide Review NO; Basophils Absolute Auto 200 /uL (0-100); Basophils Percent Auto 1.3 % (0-2); Eosinophils Absolute Auto 600 /uL (0-450); Eosinophils Percent Auto 5.3 % (2-4); Hematocrit 43.6 % (41-53); Hemoglobin 14.6 g/dL (13.5-17.5); Lymphocytes Absolute Auto 4400 /uL (1100-4500); Lymphocytes Percent Auto 38.6 % (25-40); Mean Corpuscular HGB Conc 33.4 % (30-36); Mean Corpuscular Hemoglobin 29.6 PG (26-34); Mean Corpuscular Volume 88.4 fL (80-100); Monocytes Absolute Auto 700 /uL (0-900); Monocytes Percent Auto 6.2 % (3-14); Neutrophils Absolute Auto 5600 /uL (1500-7000); Neutrophils Percent Auto 48.6 % (50-75); Platelet Count 349 X10^3/uL (150-400); Red Blood Cell Count 4.93 X10^6/uL (4.5-5.9); Red Cell Distribution Width 13.3 % (11.6-14.8); White Blood Cell Count 11.5 X10^3/uL (4.5-11.0)
[2024-06-22] MEDS: DEXTROSE 50 % IN WATER 25 GM/50 ML SYRINGE IV (10:19)
[2024-06-22] MEDS: DEXTROSE 5% WATER 1,000 ML 150 ML IV (10:20)
[2024-06-22 10:28] LABS: Alanine Aminotransferase 33 IU/L (<50); Albumin 4.9 g/dL (3.5-5.0); Albumin Globulin Ratio 1.6 (1.0-2.8); Alkaline Phosphatase 68 U/L (38-126); Aspartate Aminotransferase 34 IU/L (17-59); BUN Creatinine Ratio 21.3 (6-22); Bilirubin Total 0.5 mg/dL (0.2-1.3); Blood Urea Nitrogen 20 mg/dL (9-20); Carbon Dioxide 23 mmol/L (22-32); Chloride 104 mmol/L (98-107); Estimated Glomerular Filt Rate > 60 mL/min (>60); Globulin 3.1 g/dL (1.7-4.1); Glucose 53 mg/dL (80-110); HEMOLYSIS < 15 (0-50); Potassium 2.9 mmol/L (3.4-5.1); Sodium 142 mmol/L (137-145)
--- NOTE | 2024-06-22 11:19 | EKG_ITS ---
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
[2024-06-22] MEDS: POTASSIUM CHLORIDE IN WATER 10 MEQ/100 ML PIGGYBACK 100 MEQ IV ×2 (11:37→13:01)
[2024-06-22] MEDS: POTASSIUM CHLORIDE 20 MEQ/15 ML UDC 40 MEQ PO (11:37)
[2024-06-22 13:30] LABS: BUN Creatinine Ratio 23.8 (6-22); Blood Urea Nitrogen 20 mg/dL (9-20); Calcium 9.4 mg/dL (8.4-10.2); Carbon Dioxide 27 mmol/L (22-32); Chloride 100 mmol/L (98-107); Estimated Glomerular Filt Rate > 60 mL/min (>60); Glucose 214 mg/dL (80-110); Sodium 135 mmol/L (137-145)
[2024-06-22 13:31] LABS: Potassium 5.7 mmol/L (3.4-5.1)
[2024-06-22 14:07] LABS: HEMOLYSIS < 15 (0-50)
--- NOTE | 2024-06-22 14:30 | PC.NURSE ---
Patient has high k+. IV potassium stopped per provider order
[2024-06-22 15:18] LABS: HEMOLYSIS < 15 (0-50)
[2024-06-22 15:20] LABS: Potassium 5.6 mmol/L (3.4-5.1)
[2024-06-22] MEDS: SODIUM CHLORIDE 0.9% 1,000 ML 1000 ML IV (16:40)
[2024-06-22] MEDS: SODIUM ZIRCONIUM CYCLOSILICATE 10 GM POWD.PACK PO (17:08)
[2024-06-22] MEDS: INSULIN REGULAR 100 UNIT/ML 3 ML VIAL SUBCUT (17:09)
--- NOTE | 2024-06-22 19:00 | PC.NURSE ---
Pt AAOx3, mentating well. cheerful. ate dinner. receiving fluids. plan for DC
== END 2024-06-22 19:00 | disposition home or self-care (01) ==
PROVIDERS: Emergency Provider Emergency Medicine; PCP Family Medicine
DX: E10.649 Type 1 diabetes mellitus with hypoglycemia without coma (principal); E87.6 Hypokalemia; R00.1 Bradycardia, unspecified
CPT/HCPCS: 36415; 80048; 80053; 82962; 84132; 85025; 93005; 96361; 96365; 96366; 96372; 99284

== ENCOUNTER → 2024-06-28 09:17 | Outpatient (CLI) | payer MEDICARE, SELFPAY ==
[2024-04-21 23:18] VITALS: BMI 28.5
== END ==
PROVIDERS: PCP Family Medicine; Referring Provider Internal Medicine; Visit Provider Surgery
DX: Z09 Encounter for follow-up examination after completed treatment for conditions other than malignant neoplasm (principal); Z86.31 Personal history of diabetic foot ulcer
CPT/HCPCS: 99212; 99213

== ENCOUNTER → 2024-07-01 08:54 | Outpatient (CLI) | payer MEDICARE, SELFPAY ==
[2024-04-21 23:18] VITALS: BMI 28.5
--- NOTE | 2024-07-08 09:53 | DIAB.FU ---
Follow-up Diabetes Education Assessment Name: Bg Trujillo Date: 07/01/24 Time: 9-10a Dx: Type II Diabetes Maximus presents for Dm visit with spouse, Anusha. RD scheduled this visit due to recent severe low BG with subsequent ED visit. 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 Then he began to sweat profusely and seemingly lose consciousness. She called for EMS. Has recently been adjusting Glargine. Reports last PCP visit recs of 34u AM and 26u HS. Now taking 34u AM and 10u HS. Was taking 15-20u HS prior to the severe low. States he has not idea why he has had lows. States he has used I:C in the past for meal insulin of 1:15. Having large changes in BG from low to 400mg/dl. Interested in pump therapy. May benefit from C peptide lab. Also may benefit from glucagon for emergencies. Anthropometrics: Ht: 6' Wt: 200# reported 209.5% 04/2024 Physical Activity: Reports staying active with [employer]. Self-Monitoring Blood Glucose: Wore CGM sample. TIR: 31% very high 26% high 42% in range 1% low <1% very low Av mg/dl GMI: 8.3% std dev: 88mg/dl Diabetes Medications: 1000mg Metformin BID 15mg Actos 34u AM Glargine 10u AM Glargine 5u Aspart with dinner only Pertinent Labs: HGA1c: 10.8% 05/2018 8.9% 12/2023 9.4% 04/2024 Past Medical History: (Last Reviewed 06/16/24 @ 09:23 by Luis Slade DO) Bladder cancer Carpal tunnel syndrome Chronic fatigue Colon polyps (06/10/17) Depression Diabetes (~1997) Diabetic polyneuropathy (09/24/17) Mike Mills MD, [facility] Family history of colon cancer Foot pain Hearing decreased Hypercholesterolemia Hypertension Hypothyroidism Myelofibrosis (~2017) Neuropathy Feet and hands Shoulder pain Intervention: This participant was very receptive. Provided appropriate educational handouts. Discussed the following topics: Recent blood sugar results and trends Medication management I:C recs pump therapy options Created SMART goals for patient self-care and success. Goals: Wear CGM x 10 days- met Limit CHO portions to 45g or less at meals - met Pair CHO with protein at meals/snacks - not discussed Try 1:15 for meals- new Try 18u Glargine BID to reduce risk of lows - new Write down food and insulin - new Follow-up: JOEY THOMPSON follow-up in [address] messaged provider regarding glucagon rx and c peptide lab. Evelyn Fry RDN, [facility] Certified Diabetes Care and Front End Developer Designer P: [phone] Thank you for this referral
== END ==
PROVIDERS: PCP Family Medicine; Referring Provider Family Medicine
DX: E11.649 Type 2 diabetes mellitus with hypoglycemia without coma (principal); Z79.84 Long term (current) use of oral hypoglycemic drugs; Z79.4 Long term (current) use of insulin
CPT/HCPCS: G0108

== ENCOUNTER → 2024-07-08 07:38 | Outpatient (CLI) | payer MEDICARE, SELFPAY ==
[2024-04-21 23:18] VITALS: BMI 28.5
[2024-07-08 09:01] LABS: Alanine Aminotransferase 22 IU/L (<50); Albumin 4.1 g/dL (3.5-5.0); Albumin Globulin Ratio 1.5 (1.0-2.8); Alkaline Phosphatase 60 U/L (38-126); Aspartate Aminotransferase 24 IU/L (17-59); BUN Creatinine Ratio 17.2 (6-22); Bilirubin Total 0.5 mg/dL (0.2-1.3); Blood Urea Nitrogen 17 mg/dL (9-20); Calcium 9.5 mg/dL (8.4-10.2); Carbon Dioxide 31 mmol/L (22-32); Chloride 101 mmol/L (98-107); Estimated Glomerular Filt Rate > 60 mL/min (>60); Globulin 2.8 g/dL (1.7-4.1); Glucose 74 mg/dL (80-110); HEMOLYSIS < 15 (0-50); Potassium 4.2 mmol/L (3.4-5.1); Sodium 137 mmol/L (137-145); Total Protein 6.9 g/dL (6.3-8.2)
[2024-07-09 07:38] LABS: C Peptide < 0.1 ng/mL (1.1-4.4)
== END ==
PROVIDERS: PCP Family Medicine; Referring Provider Family Medicine; Visit Provider Family Medicine
DX: E11.42 Type 2 diabetes mellitus with diabetic polyneuropathy (principal); Z79.4 Long term (current) use of insulin; E11.65 Type 2 diabetes mellitus with hyperglycemia; Z71.3 Dietary counseling and surveillance; Z79.84 Long term (current) use of oral hypoglycemic drugs
CPT/HCPCS: 36415; 80053; 84681; G0108

== ENCOUNTER → 2024-07-08 12:51 | Outpatient (CLI) | payer MEDICARE, SELFPAY ==
[2024-04-21 23:18] VITALS: BMI 28.5
--- NOTE | 2024-07-08 12:59 | DIAB.FU ---
Follow-up Diabetes Education Assessment Name: Bg Trujillo Date: 07/08/24 Time: 1-2p Dx: Type II Diabetes Maximus presents for Dm visit with spouse, Anusha. PCP has rx'd glucagon. Pt will check on cost. Interested in omnipod. Completed cpeptide labs, pending. Recent hga1c still elevated. Reduced severe lows in the morning with reduced basal insulin. Still having elevations, needing more mealtime insulin. Would benefit from pump therapy. Will re evaluate with recent labs as to which will be covered. Documenting food and insulin. Taking 1-4u bolus insulin inconsistently. Skipping breakfast insulin even when eating high CHO. Anthropometrics: Ht: 6' Wt: 200# reported 209.5% 04/2024 Physical Activity: Reports staying active with [employer]. Self-Monitoring Blood Glucose: Wearing personal CGM. Review of CGM reports indicates less morning lows, but increased hyperglycemia during the day. Would benefit from additional mealtime insulin or pump therapy. TIR: 41% very high 27% high 31% in range 1% low <1% very low Av mg/dl GMI: 8.7% Last TIR: 31% very high 26% high 42% in range 1% low <1% very low Av mg/dl GMI: 8.3% std dev: 88mg/dl Diabetes Medications: 1000mg Metformin BID 15mg Actos 18u AM Glargine BID 1-4u Aspart with 1-2x per day Pertinent Labs: HGA1c: 10.8% 05/2018 8.9% 12/2023 9.4% 04/2024 Past Medical History: (Last Reviewed 06/16/24 @ 09:23 by Luis Slade DO) Bladder cancer 1989' Carpal tunnel syndrome Chronic fatigue Colon polyps (06/10/17) Depression Diabetes (~1997) Diabetic polyneuropathy (09/24/17) Mike Mills MD, [facility] Family history of colon cancer Foot pain Hearing decreased Hypercholesterolemia Hypertension Hypothyroidism Myelofibrosis (~2017) Neuropathy Feet and hands Shoulder pain Intervention: This participant was very receptive. Provided appropriate educational handouts. Discussed the following topics: Recent blood sugar results and trends Medication management pump therapy options and benefits and coverage potential Created SMART goals for patient self-care and success. Goals: Try 1:15 for meals- continue Try 18u Glargine BID to reduce risk of lows - met Write down food and insulin - met Try 2-5u mealtime TID- new If waking lower than 80mg/dl, reduce glargine to 15-16u BID- new Follow-up: JOEY THOMPSON follow-up in 2-3 weeks. Will have a quick 30 min visit pre PCP visit to download CGM and discuss pump options and insulin regimen. Evelyn Fry RDN, [facility] Certified Diabetes Care and Tree Trimmer Helper P: [phone] Thank you for this referral
== END ==
PROVIDERS: PCP Family Medicine; Referring Provider Family Medicine
DX: E11.65 Type 2 diabetes mellitus with hyperglycemia (principal); Z71.3 Dietary counseling and surveillance; Z79.84 Long term (current) use of oral hypoglycemic drugs; Z79.4 Long term (current) use of insulin
CPT/HCPCS: G0108

== ENCOUNTER → 2024-07-15 09:18 | Outpatient (CLI) | payer MEDICARE, SELFPAY ==
[2024-04-21 23:18] VITALS: BMI 28.5
--- NOTE | 2024-07-28 16:39 | DIAB.FU ---
Follow-up Diabetes Education Assessment Name: Bg Trujillo Date: 07/15/24 Time: 110-575a Dx: Type II Diabetes Maximus presents for Dm visit with spouse, Anusha. Here today to review CGM reports and print for PCP visit today. States TDD is 49u. Reduced hypoglcyemia remarkably since last visit, no longer having daily lows in the morning. Interested in insulin pump therapy and recent cpeptide was remarkable low. Maximus may have T1 or T1.5 given lab results vs T2. Self-Monitoring Blood Glucose: Wearing personal CGM. Review of CGM reports indicates elimination of morning lows, but increased hyperglycemia during the day. Would benefit from additional mealtime insulin or pump therapy. TIR: 57% very high 27% high 16% in range 0% low 0% very low Av mg/dl GMI: 9.4% std deviation: 73mg/dl Last TIR: 41% very high 27% high 31% in range 1% low <1% very low Av mg/dl GMI: 8.7% Diabetes Medications: 1000mg Metformin BID 15mg Actos 16u AM Glargine BID 1-4u Aspart with 1-2x per day Pertinent Labs: HGA1c: 10.8% 05/2018 8.9% 12/2023 9.4% 04/2024 Past Medical History: (Last Reviewed 06/16/24 @ 09:23 by Luis Slade DO) Bladder cancer Carpal tunnel syndrome Chronic fatigue Colon polyps (06/10/17) Depression Diabetes (~1997) Diabetic polyneuropathy (09/24/17) Mike Mills MD, [facility] Family history of colon cancer Foot pain Hearing decreased Hypercholesterolemia Hypertension Hypothyroidism Myelofibrosis (~2017) Neuropathy Feet and hands Shoulder pain Intervention: This participant was very receptive. Provided appropriate educational handouts. Discussed the following topics: Recent blood sugar results and trends Medication management pump therapy options and benefits and coverage potential with recent labs What c peptide is and results Getting rid of lows first, now working on elevations Created SMART goals for patient self-care and success. Goals: Try 2-5u mealtime TID- met If waking lower than 80mg/dl, reduce glargine to 15-16u BID- continue Try 17u BID glargine- new Follow-up: JOEY THOMPSON follow-up in 2-3 weeks Evelyn Fry RDN, [facility] Certified Diabetes Care and Privacy Officer P: [phone] Thank you for this referral
== END ==
PROVIDERS: PCP Family Medicine; Referring Provider Family Medicine
DX: E11.65 Type 2 diabetes mellitus with hyperglycemia (principal); Z79.84 Long term (current) use of oral hypoglycemic drugs; Z79.4 Long term (current) use of insulin; Z71.3 Dietary counseling and surveillance
CPT/HCPCS: G0108

== ENCOUNTER → 2024-08-11 09:40 | Outpatient (CLI) | payer MEDICARE, SELFPAY ==
[2024-04-21 23:18] VITALS: BMI 28.5
--- NOTE | 2024-09-23 08:42 | DIAB.MNTFU ---
Follow-up Diabetes Medical Nutrition Therapy Assessment Name: Bg Trujillo Date: 08/11/24 Time: 101030a Dx: Type II Diabetes Maximus presents for Dm visit with spouse, Anusha. Had planned to start pump today, but only has CGM. [employer] will overnight his pump. Needing review of carb counting for pump. Will set small, medium, large meal bolus plan. Reports higher carb breakfast and dinner (B: eggs benedict with toast and hashbrowns OR pancakes with sf syrup. D: sanwich and fries). Self-Monitoring Blood Glucose: Wearing personal CGM. Continued elimination of lows, which he is very happy about. TIR continues to improve toward goal of 70%+ TIR. TIR: 34% very high 29% high 37% in range 0% low 0% very low Av mg/dl GMI: 8.5% std deviation: 81mg/dl Last TIR: 57% very high 27% high 16% in range 0% low 0% very low Av mg/dl GMI: 9.4% std deviation: 73mg/dl Diabetes Medications: 1000mg Metformin BID 15mg Actos 16u AM Glargine BID 10u Aspart with meals Pertinent Labs: HGA1c: 10.8% 05/2018 8.9% 12/2023 9.4% 04/2024 Past Medical History: (Last Reviewed 06/16/24 @ 09:23 by Luis Slade DO) Bladder cancer Carpal tunnel syndrome Chronic fatigue Colon polyps (06/10/17) Depression Diabetes (~1997) Diabetic polyneuropathy (09/24/17) Mike Mills MD, [facility] Family history of colon cancer Foot pain Hearing decreased Hypercholesterolemia Hypertension Hypothyroidism Myelofibrosis (~2017) Neuropathy Feet and hands Shoulder pain Nutrition Rx: Carbohydrates: Meal: 45-60g Snack:15-30g Nutrition Diagnosis: - Nutrition and food related knowledge deficit r/t limited MNT aeb pt report - continued Intervention: This participant was very receptive. Provided appropriate educational handouts. Discussed the following topics: Recent blood sugar results and trends Medication management Carb amts for boluses and meal sizes Created SMART goals for patient self-care and success. Goals: If waking lower than 80mg/dl, reduce glargine to 15-16u BID- met Try 17u BID glargine- met Bring CGM and pump next visit- new Bring some snack for review of carb counting- new Follow-up: JOEY THOMPSON follow-up in 2-3 weeks Evelyn Fry RDN, [facility] Certified Diabetes Care and Web Database Developer P: [phone] Thank you for this referral
== END ==
PROVIDERS: PCP Family Medicine; Referring Provider Family Medicine
DX: E11.42 Type 2 diabetes mellitus with diabetic polyneuropathy (principal); Z79.84 Long term (current) use of oral hypoglycemic drugs; Z79.4 Long term (current) use of insulin; Z71.3 Dietary counseling and surveillance
CPT/HCPCS: 97803

== ENCOUNTER → 2024-08-18 07:44 | Outpatient (CLI) | payer MEDICARE, SELFPAY ==
[2024-04-21 23:18] VITALS: BMI 28.5
--- NOTE | 2024-09-23 17:29 | DIAB.FU ---
Follow-up Diabetes Education Assessment Name: Bg Trujillo Date: 08/18/24 Time: 8-930a Dx: Diabetes aMximus presents for Dm visit with spouse, Anusha. Brought all pump supplies. With help from the [employer] instructor trainer canine service, helped Maximus start his insulin pump. Reports taking his insulin last night. Will set a temp basal rate. Needs review of carb portions and bolusing. Plans to go to breakfast after out visit. Reviewed bolusing extensively. Settings: 1:12 IC 1:46 ISF target 100-150mg/dl 3 hour active insulin 0.8u/hour basal rate Maximus and Anusha are quite nervous about starting new insulin delivery system. Will provide in person check-in tomorrow. Self-Monitoring Blood Glucose: Wearing personal CGM. Continued elimination of lows, which he is very happy about. TIR still below goal. TIR: 37% very high 33% high 30% in range 0% low 0% very low Av mg/dl GMI: 8.7% std deviation: 77mg/dl variance: 34.1 Last TIR: 34% very high 29% high 37% in range 0% low 0% very low Av mg/dl GMI: 8.5% std deviation: 81mg/dl Diabetes Medications: 1000mg Metformin BID 15mg Actos Insulin via pump Pertinent Labs: HGA1c: 10.8% 05/2018 8.9% 12/2023 9.4% 04/2024 Past Medical History: (Last Reviewed 06/16/24 @ 09:23 by Luis Salde DO) Bladder cancer 1989' Carpal tunnel syndrome Chronic fatigue Colon polyps (06/10/17) Depression Diabetes (~1997) Diabetic polyneuropathy (09/24/17) Mike Mills MD, [facility] Family history of colon cancer Foot pain Hearing decreased Hypercholesterolemia Hypertension Hypothyroidism Myelofibrosis (~2017) Neuropathy Feet and hands Shoulder pain Nutrition Rx: Carbohydrates: Meal: 45-60g Snack:15-30g Nutrition Diagnosis: - Nutrition and food related knowledge deficit r/t limited MNT aeb pt report - continued Intervention: This participant was very receptive. Provided appropriate educational handouts. Discussed the following topics: Recent blood sugar results and trends Insulin pump start and education CGM education and placement bolusing for meals/snacks Created SMART goals for patient self-care and success. Goals: Bring CGM and pump next visit- met Bring some snack for review of carb counting- not met Wear pump and CGM- new Bolus for meals/snacks- new Follow-up: JOEY THOMPSON follow-up in1 day vEelyn Fry RDN, [facility] Certified Diabetes Care and Ct Scan Technologist P: [phone] Thank you for this referral
== END ==
PROVIDERS: PCP Family Medicine; Referring Provider Family Medicine
DX: Z46.81 Encounter for fitting and adjustment of insulin pump (principal); E11.9 Type 2 diabetes mellitus without complications; Z79.4 Long term (current) use of insulin; Z79.84 Long term (current) use of oral hypoglycemic drugs
CPT/HCPCS: G0108

== ENCOUNTER → 2024-08-19 08:18 | Outpatient (CLI) | payer MEDICARE, SELFPAY ==
[2024-04-21 23:18] VITALS: BMI 28.5
--- NOTE | 2024-09-23 17:36 | DIAB.MNTFU ---
Follow-up Diabetes Medical Nutrition Therapy Assessment Name: Bg Trujillo Date: 08/19/24 Time: 830-850a Dx: Diabetes Maximus presents for Dm visit with spouse, Anusha. Wore pump x 1 day. Bolused for meals/snacks as discussed. Complains of positioning of pump at night. Questions regarding bolusing amount. Ate higher carb breakfast yesterday and bolused 40g, much lower than actual CHO intake. Settings: 1:12 IC 1:46 ISF target 100-150mg/dl 3 hour active insulin 0.8u/hour basal rate José Antonio are quite nervous about starting new insulin delivery system. Self-Monitoring Blood Glucose: TIR over the last 24 hours already improved from 30% to 46% in range. TIR 24 hours: 13% very high 41% high 46% in range 0% low 0% very low Av mg/dl GMI: % std deviation: mg/dl variance: Yesterday x 14d TIR: 37% very high 33% high 30% in range 0% low 0% very low Av mg/dl GMI: 8.7% std deviation: 77mg/dl variance: 34.1 Last TIR: 34% very high 29% high 37% in range 0% low 0% very low Av mg/dl GMI: 8.5% std deviation: 81mg/dl Diabetes Medications: 1000mg Metformin BID 15mg Actos Insulin via pump Pertinent Labs: HGA1c: 10.8% 05/2018 8.9% 12/2023 9.4% 04/2024 Past Medical History: (Last Reviewed 06/16/24 @ 09:23 by Luis Slade DO) Bladder cancer Carpal tunnel syndrome Chronic fatigue Colon polyps (06/10/17) Depression Diabetes (~1997) Diabetic polyneuropathy (09/24/17) Mike Mills MD, [facility] Family history of colon cancer Foot pain Hearing decreased Hypercholesterolemia Hypertension Hypothyroidism Myelofibrosis (~2017) Neuropathy Feet and hands Shoulder pain Nutrition Rx: Carbohydrates: Meal: 45-60g Snack:15-30g Nutrition Diagnosis: - Nutrition and food related knowledge deficit r/t limited MNT aeb pt report - continued Intervention: This participant was very receptive. Provided appropriate educational handouts. Discussed the following topics: Potential for a pump belt for night bolusing for small/med/large bolusing for meals/snacks Created SMART goals for patient self-care and success. Goals: Bring CGM and pump next visit- met Bring some snack for review of carb counting- not met Wear pump and CGM- continue Bolus for meals/snacks- continue Follow-up: JOEY THOMPSON follow-up in 1 week Evelyn Fry RDN, [facility] Certified Diabetes Care and Bus Greaser P: [phone] Thank you for this referral
== END ==
PROVIDERS: PCP Family Medicine; Referring Provider Family Medicine
DX: E11.9 Type 2 diabetes mellitus without complications (principal); Z79.4 Long term (current) use of insulin; Z79.84 Long term (current) use of oral hypoglycemic drugs; Z96.41 Presence of insulin pump (external) (internal)
CPT/HCPCS: 97803

== ENCOUNTER → 2024-08-25 08:46 | Outpatient (CLI) | payer MEDICARE, SELFPAY ==
[2024-04-21 23:18] VITALS: BMI 28.5
--- NOTE | 2024-09-23 17:45 | DIAB.FU ---
Follow-up Diabetes Education Assessment Name: Bg Trujillo Date: 08/25/24 Time: 9930 Dx: Diabetes Maximus presents for Dm visit with spouse, Anusha. Reports sore toe and going to wound care today. Needing site change education today. Using belt for pump and liking it. Connected phone to pump for notifications. Questions regarding CHO in specific snacks. Only bolusing for meals. Started smart guard auto corrections this week. has some concerns for lows on Dexcom G7, will adjust basal rate at night. Settings: 1:12 IC 1:46 ISF target 100-150mg/dl 3 hour active insulin -- changed to 2 hours 0.8u/hour basal rate--- changed to 0.65u/hr midnight to 8a and 0.75u/hr 8a to midnight TDD: 29.3u Bolus: 13.2u per day Auto correction daily: 4.3u CHO entered per day 77g Maximus and Anusha are quite nervous about starting new insulin delivery system. Self-Monitoring Blood Glucose: TIR over the last 24 hours already improved from 30% to 46% in range. TIR : 17% very high 40% high 43% in range 0% low 0% very low Av mg/dl GMI: % std deviation: mg/dl variance: Last TIR: 37% very high 33% high 30% in range 0% low 0% very low Av mg/dl GMI: 8.7% std deviation: 77mg/dl variance: 34.1 Diabetes Medications: 1000mg Metformin BID 15mg Actos Insulin via pump Pertinent Labs: HGA1c: 10.8% 05/2018 8.9% 12/2023 9.4% 04/2024 Past Medical History: (Last Reviewed 06/16/24 @ 09:23 by Luis Slade DO) Bladder cancer Carpal tunnel syndrome Chronic fatigue Colon polyps (06/10/17) Depression Diabetes (~1997) Diabetic polyneuropathy (09/24/17) Mike Mills MD, [facility] Family history of colon cancer Foot pain Hearing decreased Hypercholesterolemia Hypertension Hypothyroidism Myelofibrosis (~2017) Neuropathy Feet and hands Shoulder pain Intervention: This participant was very receptive. Provided appropriate educational handouts. Discussed the following topics: Potential for a pump belt for night bolusing for snacks Changing basal rate to reduce evening lows Wound healing with improved BG Carb counts for specifica snacks Low Tx with rule of 15 Created SMART goals for patient self-care and success. Goals: Wear pump and CGM- continue Bolus for meals/snacks- in progress Bolus for snacks- new Follow-up: JOEY THOMPSON follow-up in 1 week Evelyn Fry RDN, [facility] Certified Diabetes Care and Fixed Wing Aircraft Flight Mechanic P: [phone] Thank you for this referral
== END ==
PROVIDERS: PCP Family Medicine; Referring Provider Family Medicine
DX: E11.621 Type 2 diabetes mellitus with foot ulcer (principal); L97.512 Non-pressure chronic ulcer of other part of right foot with fat layer exposed; E11.42 Type 2 diabetes mellitus with diabetic polyneuropathy; R60.0 Localized edema; L84 Corns and callosities; Z79.4 Long term (current) use of insulin; Z96.41 Presence of insulin pump (external) (internal)
CPT/HCPCS: 87070; 87077; 87186; 87205; G0108

== ENCOUNTER → 2024-08-25 14:01 | Outpatient (CLI) | payer MEDICARE, SELFPAY ==
[2024-04-21 23:18] VITALS: BMI 28.5
== END ==
LOC: WC 14:01
PROVIDERS: PCP Family Medicine; Referring Provider Internal Medicine; Visit Provider Surgery
DX: E11.621 Type 2 diabetes mellitus with foot ulcer (principal); L97.512 Non-pressure chronic ulcer of other part of right foot with fat layer exposed; E11.42 Type 2 diabetes mellitus with diabetic polyneuropathy; R60.0 Localized edema; L84 Corns and callosities
CPT/HCPCS: 11042; 87070; 87075; 87077; 87186; 87205; 99213; 99214

== ENCOUNTER → 2024-08-29 14:24 | Outpatient (CLI) | payer MEDICARE, SELFPAY ==
[2024-04-21 23:18] VITALS: BMI 28.5
== END ==
PROVIDERS: PCP Family Medicine; Referring Provider Internal Medicine; Visit Provider Surgery
DX: E11.621 Type 2 diabetes mellitus with foot ulcer (principal); L97.512 Non-pressure chronic ulcer of other part of right foot with fat layer exposed; M79.671 Pain in right foot; R60.0 Localized edema
CPT/HCPCS: 99213

== ENCOUNTER → 2024-09-01 09:25 | Outpatient (CLI) | payer MEDICARE, SELFPAY ==
[2024-04-21 23:18] VITALS: BMI 28.5
== END ==
PROVIDERS: PCP Family Medicine; Referring Provider Internal Medicine; Visit Provider Surgery
DX: E11.621 Type 2 diabetes mellitus with foot ulcer (principal); L97.512 Non-pressure chronic ulcer of other part of right foot with fat layer exposed; L84 Corns and callosities; E11.40 Type 2 diabetes mellitus with diabetic neuropathy, unspecified
CPT/HCPCS: 11042; 99183; G0277

== ENCOUNTER → 2024-09-01 13:46 | Outpatient (CLI) | payer MEDICARE, SELFPAY ==
[2024-04-21 23:18] VITALS: BMI 28.5
--- NOTE | 2024-10-07 17:16 | DIAB.MNTFU ---
Addendum entered by Evelyn Fry 10/07/24 17:28: Nutrition Rx: Carbohydrates: Meal: 45-60g Snack:15-30g Nutrition Diagnosis: - Nutrition and food related knowledge deficit r/t limited MNT aeb pt report - continued Original Note: Follow-up Diabetes Medical Nutrition Therapy Assessment Name: Bg [place] Date: 09/01/24 Time: 2-250p Dx: Diabetes Maximus presents for Dm visit with spouse, Anusha. Reports temp target is working well during physical activity Needs to change rx for insulin to have better coverage. RD communicated this to PCP office. Has placed pump supply order. Today changed sites and batter for pump and CGM. Needs review of carb portions and dosing insulin per report. some hyperlgycemia after meals/snacks r/t choosing low carb amts in bolus. Settings: 1:12 IC 1:46 ISF 2 hour active insulin Basal rate 0.65u/hr midnight to 8a and 0.75u/hr 8a to midnight TDD: 37.5u Maximus and Anusha are are feeling more comfortable about starting insulin pump therapy. Self-Monitoring Blood Glucose: Continued improved TIR, but still below goal. TIR : 11% very high 40% high 49% in range 0% low 0% very low Av mg/dl GMI: 7.7% std deviation: 48mg/dl variance:26.2 Last TIR: 17% very high 40% high 43% in range 0% low 0% very low Av mg/dl GMI: % std deviation: mg/dl variance: Diabetes Medications: 1000mg Metformin BID 15mg Actos Insulin via pump Pertinent Labs: HGA1c: 10.8% 05/2018 8.9% 12/2023 9.4% 04/2024 Past Medical History: (Last Reviewed 06/16/24 @ 09:23 by Luis Slade DO) Bladder cancer 1989' Carpal tunnel syndrome Chronic fatigue Colon polyps (06/10/17) Depression Diabetes (~1997) Diabetic polyneuropathy (09/24/17) Mike Mills MD, [facility] Family history of colon cancer Foot pain Hearing decreased Hypercholesterolemia Hypertension Hypothyroidism Myelofibrosis (~2017) Neuropathy Feet and hands Shoulder pain Intervention: This participant was very receptive. Provided appropriate educational handouts. Discussed the following topics: Bolusing for meals/snacks Carb amount in different foods he likes Portions for CHO Temp target rationale for phys activity Site changes and battery change Review of insulin rx and changes pharmacy needs Created SMART goals for patient self-care and success. Goals: Bolus for snacks- met Continue bolusing- new Use rec 20, 40, 60g for bolusing meals/snacks- new Follow-up: JOEY THOMPSON follow-up in 2-3 weeks Evelyn Fry RDN, DONNA Certified Diabetes Care and Stacker Tender P: [phone] Thank you for this referral
== END ==
PROVIDERS: PCP Family Medicine; Referring Provider Family Medicine
DX: E11.65 Type 2 diabetes mellitus with hyperglycemia (principal); Z79.4 Long term (current) use of insulin; Z71.3 Dietary counseling and surveillance; Z79.84 Long term (current) use of oral hypoglycemic drugs; Z96.41 Presence of insulin pump (external) (internal)
CPT/HCPCS: 97803

== ENCOUNTER → 2024-09-08 09:25 | Outpatient (CLI) | payer MEDICARE, SELFPAY ==
[2024-04-21 23:18] VITALS: BMI 28.5
== END ==
LOC: WC 09:26
PROVIDERS: PCP Family Medicine; Referring Provider Internal Medicine; Visit Provider Surgery
DX: E11.621 Type 2 diabetes mellitus with foot ulcer (principal); L97.512 Non-pressure chronic ulcer of other part of right foot with fat layer exposed; E11.42 Type 2 diabetes mellitus with diabetic polyneuropathy; L84 Corns and callosities; R60.0 Localized edema
CPT/HCPCS: 11042

== ENCOUNTER → 2024-09-15 08:57 | Outpatient (CLI) | payer MEDICARE, SELFPAY ==
[2024-04-21 23:18] VITALS: BMI 28.5
== END ==
LOC: WC 08:58
PROVIDERS: PCP Family Medicine; Referring Provider Internal Medicine; Visit Provider Surgery
DX: E11.42 Type 2 diabetes mellitus with diabetic polyneuropathy (principal); E11.621 Type 2 diabetes mellitus with foot ulcer; L97.512 Non-pressure chronic ulcer of other part of right foot with fat layer exposed; L84 Corns and callosities; R60.0 Localized edema; I10 Essential (primary) hypertension
CPT/HCPCS: 11042

== ENCOUNTER → 2024-09-22 08:44 | Outpatient (CLI) | payer MEDICARE, SELFPAY ==
[2024-04-21 23:18] VITALS: BMI 28.5
--- NOTE | 2024-10-07 17:29 | DIAB.MNTFU ---
Follow-up Diabetes Medical Nutrition Therapy Assessment Name: Bg Truj[place] Date: 09/22/24 Time: 9-930a Dx: Diabetes Maximus presents for Dm visit with spouse, Anusha. Reports lows when very active and bolusing as recommended. Reports high refined CHO intake when working Has not used temp target Clearing out all apps and losing data for pump/CGM Needing some guidance on connecting CGM to pump Settings: 1:12 IC 1:46 ISF 2 hour active insulin Basal rate 0.65u/hr midnight to 8a and 0.75u/hr 8a to midnight TDD: 51.3u Self-Monitoring Blood Glucose: Continued improved TIR, and much closer to goal of 70% TIR: 9% very high 28% high 63% in range 0% low 0% very low Av mg/dl GMI: 7.4% std deviation: 56mg/dl variance:32.1 % Last TIR : 11% very high 40% high 49% in range 0% low 0% very low Av mg/dl GMI: 7.7% std deviation: 48mg/dl variance:26.2 Diabetes Medications: 1000mg Metformin BID 15mg Actos Insulin via pump Pertinent Labs: HGA1c: 10.8% 05/2018 8.9% 12/2023 9.4% 04/2024 Past Medical History: Bladder cancer Carpal tunnel syndrome Chronic fatigue Colon polyps (06/10/17) Depression Diabetes (~1997) Diabetic polyneuropathy (09/24/17) Mike Mills MD, [facility] Family history of colon cancer Foot pain Hearing decreased Hypercholesterolemia Hypertension Hypothyroidism Myelofibrosis (~2017) Neuropathy Feet and hands Shoulder pain Nutrition Rx: Carbohydrates: Meal: 45-60g Snack:15-30g Nutrition Diagnosis: - Nutrition and food related knowledge deficit r/t limited MNT aeb pt report - continued - Predicted excessive CHO intake r/t refined CHO choices during work aeb pt report - new Intervention: This participant was very receptive. Provided appropriate educational handouts. Discussed the following topics: Using temp target during activity Do not clear out Glam .fr Francetronic cuate Starting new sensor Impact of refined CHO on BG bolusing while being active and for correction Carb portions recs Created SMART goals for patient self-care and success. Goals: Continue bolusing- met Use rec 20, 40, 60g for bolusing meals/snacks- met Set temp target when active- new Cut CHO in half in pump when active- new Limit simple CHO- new Keep cuate open- new Follow-up: JOEY THOMPSON follow-up in 2-3 weeks Evelyn Fry RDN, DONNA Certified Diabetes Care and Glass Unloading Equipment Tender P: [phone] Thank you for this referral
== END ==
PROVIDERS: PCP Family Medicine; Referring Provider Family Medicine
DX: E11.42 Type 2 diabetes mellitus with diabetic polyneuropathy (principal); Z79.4 Long term (current) use of insulin; Z96.41 Presence of insulin pump (external) (internal); Z71.3 Dietary counseling and surveillance
CPT/HCPCS: 11042; 97803

== ENCOUNTER → 2024-09-22 09:39 | Outpatient (CLI) | payer MEDICARE, SELFPAY ==
[2024-04-21 23:18] VITALS: BMI 28.5
== END ==
PROVIDERS: PCP Family Medicine; Referring Provider Family Medicine; Visit Provider Surgery
DX: E11.621 Type 2 diabetes mellitus with foot ulcer (principal); L97.512 Non-pressure chronic ulcer of other part of right foot with fat layer exposed; L84 Corns and callosities; R60.0 Localized edema; E11.40 Type 2 diabetes mellitus with diabetic neuropathy, unspecified
CPT/HCPCS: 11042; 99213

== ENCOUNTER → 2024-09-29 09:40 | Outpatient (CLI) | payer MEDICARE, SELFPAY ==
[2024-04-21 23:18] VITALS: BMI 28.5
[2024-09-29 10:35] LABS: Creatinine Urine Random 195.79 mg/dL
[2024-09-29 10:40] LABS: Microalbumin Urine Random 0.6 mg/dL (0-1.6)
[2024-09-29 10:54] LABS: Add Manual Diff / Slide Review NO; Basophils Absolute Auto 100 /uL (0-100); Basophils Percent Auto 1.3 % (0-2); Eosinophils Absolute Auto 400 /uL (0-450); Eosinophils Percent Auto 5.4 % (2-4); Hematocrit 40.1 % (41-53); Hemoglobin 13.3 g/dL (13.5-17.5); Lymphocytes Absolute Auto 2000 /uL (1100-4500); Lymphocytes Percent Auto 30.8 % (25-40); Mean Corpuscular HGB Conc 33.2 % (30-36); Mean Corpuscular Hemoglobin 29.3 PG (26-34); Mean Corpuscular Volume 88.1 fL (80-100); Monocytes Absolute Auto 400 /uL (0-900); Monocytes Percent Auto 5.9 % (3-14); Neutrophils Absolute Auto 3700 /uL (1500-7000); Neutrophils Percent Auto 56.6 % (50-75); Platelet Count 282 X10^3/uL (150-400); Red Blood Cell Count 4.54 X10^6/uL (4.5-5.9); Red Cell Distribution Width 13.7 % (11.6-14.8); White Blood Cell Count 6.5 X10^3/uL (4.5-11.0)
[2024-09-29 11:04] LABS: Hemoglobin A1C% w Est Avg Glu 7.3 % (4.0-6.0)
[2024-09-29 11:26] LABS: HEMOLYSIS < 15 (0-50); Iron 56 ug/dL (49-181)
[2024-09-29 11:27] LABS: Cholesterol 164 mg/dL (140-199); HDL Cholesterol 77 mg/dL (40-60); LDL Cholesterol Calculated 67 mg/dL (<100); Triglycerides 101 mg/dL (35-150)
[2024-09-29 11:36] LABS: Percent Iron Saturation 24 % (20-50); Total Iron Binding Capacity 235 ug/dL (261-462); Transferrin 210 mg/dL (206-381)
[2024-09-29 11:47] LABS: Free T4, Direct Thyroxine 1.44 ng/dL (0.78-2.19)
[2024-09-29 12:00] LABS: Thyroid Stimulating Hormone 0.315 uIU/mL (0.47-4.68)
[2024-09-29 12:20] LABS: Vitamin B12 413 pg/mL (239-931)
--- NOTE | 2024-10-12 15:29 | DIAB.MNTFU ---
Follow-up Diabetes Medical Nutrition Therapy Assessment Name: Bg Trujillo Date: 09/29/24 Time: 10-6370a Dx: Diabetes Maximus presents for Dm visit with spouse, Anusha. Reports changing CGM at home with early change sensor message. Not bolusing for meals with BG is <120mg/dl, which causes elevations postprandial. Temp target with activity is worki ngwell. Using 20g CHO for pancakes. Needs review of label reading and carb amts. Closing pump cuate which impacts data collection. Settings: 1:12 IC 1:46 ISF 2 hour active insulin Basal rate 0.65u/hr midnight to 8a and 0.75u/hr 8a to midnight TDD: 51.3u Self-Monitoring Blood Glucose: Slight improved TIR. TIR: 8% very high 28% high 64% in range 0% low 0% very low Av mg/dl GMI: 7.3% std deviation: 54mg/dl variance:32.2 % Last TIR : 9% very high 28% high 63% in range 0% low 0% very low Av mg/dl GMI: 7.4% std deviation: 56mg/dl variance:32.1 % Diabetes Medications: 1000mg Metformin BID 15mg Actos Insulin via pump Pertinent Labs: HGA1c: 10.8% 05/2018 8.9% 12/2023 9.4% 04/2024 Past Medical History: Bladder cancer Carpal tunnel syndrome Chronic fatigue Colon polyps (06/10/17) Depression Diabetes (~1997) Diabetic polyneuropathy (09/24/17) Mike Mills MD, [facility] Family history of colon cancer Foot pain Hearing decreased Hypercholesterolemia Hypertension Hypothyroidism Myelofibrosis (~2017) Neuropathy Feet and hands Shoulder pain Nutrition Rx: Carbohydrates: Meal: 45-60g Snack:15-30g Nutrition Diagnosis: - Nutrition and food related knowledge deficit r/t limited MNT aeb pt report - in progress - Predicted excessive CHO intake r/t refined CHO choices during work aeb pt report - in progress Intervention: This participant was very receptive. Provided appropriate educational handouts. Discussed the following topics: Label reading for total carbs Bolusing recommendations Examples of foods he enjoys and rec bolus amts Created SMART goals for patient self-care and success. Goals: Set temp target when active- met Cut CHO in half in pump when active- in progress Limit simple CHO- in progress Keep cuate open- in progress Use 30g for pancakes- new Continue with temp basal- new Leave cuate open- continue Bolus for meals even when BG is in goal- new Follow-up: JOEY THOMPSON follow-up in 1-2 weeks Evelyn Fry RDN, JUDYES Certified Diabetes Care and Administrative Assistant Front Desk P: [phone] Thank you for this referral
== END ==
PROVIDERS: PCP Family Medicine; Referring Provider Family Medicine
DX: D64.9 Anemia, unspecified (principal); E11.42 Type 2 diabetes mellitus with diabetic polyneuropathy; E78.00 Pure hypercholesterolemia, unspecified; Z79.4 Long term (current) use of insulin; E03.9 Hypothyroidism, unspecified; I10 Essential (primary) hypertension
CPT/HCPCS: 36415; 80061; 82043; 82570; 82607; 83036; 83540; 83550; 84439; 84443; 85025

== ENCOUNTER → 2024-09-29 10:03 | Outpatient (CLI) | payer MEDICARE, SELFPAY ==
[2024-04-21 23:18] VITALS: BMI 28.5
--- NOTE | 2024-09-29 | OV.WND_ITS ---
PROGRESS NOTE DETAILS PATIENT NAME: SNEHA ALVES PATIENT NUMBER: [id number] CLINICIAN: JEAN-PAUL SANCHEZ PATIENT DATE OF : 1960 PHYSICIAN / TITLE SEARCHER: ISHMAEL LEACH PATIENT SUBJECTIVE CHIEF COMPLAINT THIS INFORMATION WAS OBTAINED FROM THE PATIENT. FOOTBALL GOT WET ALLERGIES NO KNOWN ALLERGIES HPI THIS INFORMATION WAS OBTAINED FROM THE PATIENT. 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 PATIENT IS RECEIVING DRESSING CHANGES WITH VASHE AND COLLAGEN WITH A FOOTBALL DRESSING FOR PRESSURE OFFLOADING HOWEVER THE FOOTBALL DRESSING CAME OFF 2 DAYS AGO WHEN HE GOT HIS FOOT WET IN THE HOT [place]. HE DENIES HAVING ANY PAIN OR DISCOMFORT NOR HAS HE NOTED ANY REDNESS OR DRAINAGE. HE HAS NOT HAD ANY FEVER OR CHILLS. PREVIOUS IMAGING STUDIES WERE CONCERNING FOR OSTEOMYELITIS AND HE WAS TREATED WITH IV ROCEPHIN FOR 6 WEEKS. THE PATIENT REPORTS A GOOD APPETITE AND IS TAKING PROTEIN SUPPLEMENTS. BLOOD SUGARS HAVE BEEN UNDER BETTER CONTROL SINCE HE STARTED USING AN INSULIN PUMP. HE DENIES HAVING ANY RECENT CHANGES IN HIS OVERALL HEALTH. ABIS WERE 1.15 ON THE RIGHT AND 1.13 ON THE LEFT. HEMOGLOBIN A1C WAS 9.5 ON MAY 27, 2024. ON EXAM TODAY THE ULCER HAS IMPROVED MEASUREMENTS AND SOME DRIED DRAINAGE, NO SIGN OF INFECTION. OVERALL THERE HAS BEEN AN 97% DECREASE IN SIZE SINCE STARTING TREATMENT. HE HAS RECEIVED NEW CUSTOM INSERTS. LABS 08/25/24: CULTURE GREW SERRATIA MARCESCENS 05/02/24: C-REACTIVE PROTEIN < 0.5, ELECTROLYTES UNREMARKABLE, WBC 9.2, HEMOGLOBIN 14.0, HCT 42.9 04/23/24: WBC 7.5, HEMOGLOBIN 12.5, HCT 37.3 04/22/24: WBC 12.1, HEMOGLOBIN 13.5, HCT 40.6, ELECTROLYTES UNREMARKABLE, GFR GREATER THAN 60 04/22/24: MRI REVEALED: SOFT TISSUE INFLAMMATION AND EDEMA MOST FOCALLY AROUND THE MEDIAL DISTAL 1ST RAY. MILD EDEMA AND ENHANCEMENT IS SEEN IN THE DISTAL PHALANX AND PROXIMAL PHALANGEAL HEAD, PROBABLY REACTIVE TO ADJACENT SOFT TISSUE INFLAMMATION/INFECTION VERSUS EARLY OSTEOMYELITIS. NO FINDINGS OF CONFLUENT T1 SIGNAL LOSS TO SUGGEST LATER STAGES OSTEOMYELITIS/NECROTIC BONE. 04/21/24: CULTURE GREW STREPTOCOCCUS GROUP B 04/21/24: X-RAY RIGHT FOOT REVEALED:IRREGULARITY OF THE DISTAL ASPECT OF THE 1ST PROXIMAL PHALANX MEDIALLY WITH A SMALL AREA OF CORTICAL DESTRUCTION. FINDINGS ARE CONCERNING FOR OSTEOMYELITIS. 01/11/24: HEMOGLOBIN A1C 8.9 JOSELYN SNEHA Camilla [id number] 1960 MEDICAL HISTORY THIS INFORMATION WAS OBTAINED FROM THE CHART, PATIENT. PATIENT HAS A MEDICAL HISTORY OF: CHRONIC FATIGUE COLON POLYPS - 06/10/2017 DIABETES (1997) DIABETIC POLYNEUROPATHY - 09/24/2017 HYPERCHOLESTEROLEMIA HYPERTENSION HYPOTHYROIDISM SURGICAL HISTORY THIS INFORMATION WAS OBTAINED FROM THE CHART, PATIENT. PATIENT HAS A SURGICAL HISTORY OF: HISTORY OF COLONOSCOPY WITH POLYPECTOMY- 06/10/2017 OBJECTIVE VITALS HEIGHT/LENGTH: 72 IN (182.88 CM), WEIGHT: 206.8 LBS (94 KGS), BMI: 28, TEMPERATURE: 97.3 ?F (36.28 ?C), PULSE: 76 BPM, RESPIRATORY RATE: 16 BREATHS/MIN, BLOOD PRESSURE: 156/79 MMHG. PHYSICAL EXAM CONSTITUTIONAL: VITAL SIGNS REVIEWED AND NOTED. WELL DEVELOPED, WELL NOURISHED, AND IN NO ACUTE DISTRESS. ALERT AND ORIENTED X3. RESPIRATORY: EVEN RESPIRATIONS WITHOUT USE OF ACCESSORY MUSCLES. NO INTERCOASTAL RETRACTIONS NOTED. EVEN AND NON LABORED RESPIRATION. INTEGUMENTARY (HAIR, SKIN): NO ERYTHEMA. NO SWELLING OR TENDERNESS. SEE WOUND ASSESSMENT. SKIN WARM AND DRY. NO RASHES. NEUROLOGICAL: DECREASED LOWER EXTREMITY SENSATION. PSYCHIATRIC: ORIENTATION TO TIME, PLACE AND PERSON: NORMAL AFFECT WITH NORMAL THOUGHT PATTERN. ADDITIONAL INFORMATION THE PATIENT'S POTENTIAL TO HEAL IS: GOOD. WOUND ASSESSMENT(S) WOUND #4 RIGHT TOE - GREAT IS A CHRONIC MORALES GRADE 2 DIABETIC ULCER ACQUIRED ON 08/22/2024 AND HAS RECEIVED A STATUS OF NOT HEALED. INITIAL WOUND ENCOUNTER MEASUREMENTS ARE 0.1CM LENGTH X 0.1CM WIDTH X 0.1 CM DEPTH, WITH AN AREA OF 0.01 SQ CM AND A VOLUME OF 0.001 CUBIC CM.INITIAL WOUND ENCOUNTER PREVIOUS MEASUREMENTS FROM 09/22/2024 ARE 0.2CM LENGTH X 0.2CM WIDTH X 0.2CM DEPTH, WITH AN AREA OF 0.04 SQ CM AND A VOLUME OF 0.008 CUBIC CM. ADIPOSE IS EXPOSED. NO TUNNELING HAS BEEN NOTED. NO SINUS TRACT HAS BEEN NOTED. NO UNDERMINING HAS BEEN NOTED. THERE IS A MODERATE AMOUNT OF SEROSANGUINEOUS DRAINAGE NOTED WHICH HAS NO ODOR. THE PATIENT REPORTS A WOUND PAIN OF LEVEL 0/10. THE WOUND MARGIN IS UNATTACHED WOUND BED HAS YES, PINK, FIRM, GRANULATION, YES SLOUGH, NO ESCHAR, YES EPITHELIALIZATION. THE PERIWOUND SKIN EXHIBITED EDEMA AND CALLUS. THE PERIWOUND SKIN DID NOT EXHIBIT BRAWNY INDURATION, EXCORIATION, INDURATION, CREPITUS, FLUCTUANCE, RASH, MACERATION, ATROPHIE SHELDON, CYANOSIS, ECCHYMOSIS, ERYTHEMA, HEMOSIDEROSIS, PALLOR AND RUBOR. THE PERIWOUND SKIN WAS NOT FRIABLE, DRY/SCALY AND MOIST. SNEHA ALVES [id number] 1960 THE TEMPERATURE OF THE PERIWOUND SKIN IS WNL. PERIWOUND SKIN DOES NOT EXHIBIT SIGNS OR SYMPTOMS OF INFECTION. LOCAL PULSE IS PALPABLE. ADDITIONAL INFORMATION OTHER DEVITALIZED TISSUE PRESENT: BIOFILM ASSESSMENT ACTIVE PROBLEMS ICD-10 (ENCOUNTER DIAGNOSIS) L97.512 - NON-PRESSURE CHRONIC ULCER OF OTHER PART OF RIGHT FOOT WITH FAT LAYER EXPOSED (ENCOUNTER DIAGNOSIS) E11.621 - TYPE 2 DIABETES MELLITUS WITH FOOT ULCER (ENCOUNTER DIAGNOSIS) E11.42 - TYPE 2 DIABETES MELLITUS WITH DIABETIC POLYNEUROPATHY GENERAL NOTES RECURRENT DIABETIC ULCER RIGHT GREAT TOE IMPROVED THE FOLLOWING FACTORS HAVE BEEN IDENTIFIED THAT MAY AFFECT WOUND HEALING: DEVITALIZED TISSUE BIOFILM NEUROPATHY DIABETES PRESSURE GOALS: REMOVE DEVITALIZED TISSUE REMOVE AND PREVENT BIOFILM REDUCE PRESSURE WOUND CLOSURE PREVENT RECURRENCE PLAN: DEBRIDEMENT, CONTINUE DRESSING CHANGES WITH VASHE AND COLLAGEN WITH AND FOOTBALL DRESSING FOR PRESSURE OFFLOADING. CONTINUE PROTEIN SUPPLEMENTATION. FOLLOW UP IN 1 WEEK FOR A RECHECK PROCEDURES WOUND #4 WOUND #4 (DIABETIC ULCER) IS LOCATED ON THE RIGHT TOE - GREAT. A SKIN/SUBCUTANEOUS TISSUE LEVEL SURGICAL DEBRIDEMENT WITH A TOTAL AREA DEBRIDED OF 0.04 SQ CM. WAS PERFORMED BY ISHMAEL LEACH MD. SUBCUTANEOUS WAS REMOVED ALONG WITH DEVITALIZED TISSUE: BIOFILM, EXUDATE AND SLOUGH. THE FOLLOWING INSTRUMENT(S) WERE USED: CURETTE. PAIN CONTROL WAS ACHIEVED USING EMLA LIDOCAINE/PRILOCAINE 2.5%/2.5%. A TIME OUT WAS CONDUCTED PRIOR TO THE START OF THE PROCEDURE. A MINIMAL AMOUNT OF BLEEDING WAS CONTROLLED WITH PRESSURE. THE PROCEDURE WAS TOLERATED WELL WITH A PAIN LEVEL OF 0 THROUGHOUT AND A PAIN LEVEL OF 0 FOLLOWING THE PROCEDURE. POST DEBRIDEMENT MEASUREMENTS: 0.2CM LENGTH X 0.2CM WIDTH X 0.2CM DEPTH; WITH AN AREA OF 0.04 SQ CM AND A VOLUME OF 0.008 CUBIC CM. ADDITIONAL INFORMATION MUSCLE FASCIA OR BONE REMOVED AND SENT TO PATHOLOGY?: NO CATHRYN SNEHA ALVES [id number] 1960 WOUND ORDERS: WOUND #4 RIGHT TOE - GREAT HAND HYGIENE HAND HYGIENE - WASH HANDS BEFORE AND AFTER WOUND CARE. CALL THE WOUND CENTER AT [phone] IF YOU HAVE SIGNS OR SYMPTOMS OF INFECTION, FEVER CHILLS OR SHAKES, INCREASED DRAINAGE, INCREASED ODOR OR UNUSUAL REDNESS. AFTER WOUND CENTER HOURS PLEASE NOTIFY YOUR PCP OR GO TO THE EMERGENCY ROOM. CLEANSER CLEANSE WOUND WITH NORMAL SALINE MAY SHOWER, LEAVE WOUND DRESSING INTACT. COVER WOUND DRESSING WITH A WATERPROOF BARRIER. KEEP DRESSING DRY. NO BATHS PLEASE. - RECOMMEND CAST PROTECTOR TO KEEP FOOTBALL DRESSING DRY AND INTACT. PROCEDURE / ANESTHETIC NURSE TO COMPLETE WOUND ASSESSMENT(S). NURSE TO PERFORM A MECHANICAL DEBRIDEMENT TO REMOVE ANY DEVITALIZED TISSUE. 5% TOPICAL LIDOCAINE TO WOUND BED PRIOR TO PROCEDURE, IN CLINIC ONLY. DRESSING ORDERS APPLY DRESSING(S) AND SECURE WITH: - COLLAGEN POWDER AND VASHE SOLUTION TO MAKE A PASTE, FILLING WOUND. HYDROFERA BLUE SECURED WITH HYPAFIX TAPE. DRESSING CHANGE FREQUENCY LEAVE DRESSING INTACT UNTIL YOUR NEXT WOUND CENTER APPOINTMENT. KEEP DRY. IF DRESSING BECOMES SOILED OR WET CONTACT THE WOUND CENTER AT [phone]. OFF-LOADING / PRESSURE RELIEF USE/WEAR WHEN WALKING: - FOOTBALL DRESSING AND POST-OP SHOE ON RIGHT FOOT. MUST WEAR POST-OP SHOE AT ALL TIMES WHEN WALKING. ADDITIONAL ORDERS: DIETARY TAKE VITAMIN C 1000MG BY MOUTH DAILY. TAKE ZINC 25MG BY MOUTH DAILY. FOLLOW A DIABETIC DIET. INCREASE THE PROTEIN IN YOUR DIET. - AIDS IN WOUND HEALING. OTHER NUTRITIONAL SUPPLEMENT: - DIABETIC FRIENDLY PROTEIN SUPPLEMENT SUCH GLUCERNA. FOLLOW-UP APPOINTMENTS RETURN APPOINTMENT 1 WEEK SCRIBING ATTESTATION I ATTEST, THE NURSE, THAT I SCRIBED THESE ORDERS FOR THE WOUND CARE PROVIDER. PROVIDER REVIEW AND ATTESTATION: REVIEWED AND EVALUATED LABS. REVIEWED HOSPITAL RECORDS. DISCUSSED THE PLAN OF CARE @ BEDSIDE WITH - THE PATIENT I AGREE AND ATTEST TO THE ABOVE INFORMATION PROVIDED FROM OTHER LICENSED PROFESSIONALS. PLAN OF CARE: 01. ENSURE/ESTABLISH OPTIMAL BLOOD FLOW : - COMPLETE LOWER EXTREMITY ASSESSMENT STATUS: CONTINUED DATE: 09/22/2024 - PERFORM NON-INVASIVE VASCULAR TESTING (I.E. MARA) AND DOCUMENT FINDINGS. CONSIDER REPEATING WHEN WOUND HEALING <40% AFTER 30 DAYS OF WOUND CARE. STATUS: COMPLETED DATE: 08/25/2024 02. ASSESS FOR/TREAT INFECTION : - OBTAIN CULTURE AND SENSITIVITY (CANDS) OR TISSUE CULTURE WHEN INFECTION IS SUSPECTED. (NOTE:) CONSIDER REPEATING WHEN WOUND HEALING <40% AFTER 30 DAYS OF WOUND CARE. STATUS: COMPLETED DATE: 08/25/2024 03. DEBRIDE WEEKLY OR MORE OFTEN PRN : - EVALUATE PATIENT IN CENTER WEEKLY TO ASSESS WOUND BED AND MARGINS FOR NEED FOR DEBRIDEMENT. STATUS: CONTINUED DATE: 09/22/2024 - DEBRIDEMENT BY ANY METHOD TO REMOVE DEVITALIZED/NECROTIC TISSUE TO PROMOTE HEALING AND PREVENT SNEHA ALVES [id number] 1960 FURTHER COMPLICATIONS. GOAL IS TO STIMULATE AND/OR MAINTAIN ACUTE PHASE OF WOUND HEALING BY REDUCING BACTERIAL BURDEN AND DEVITALIZED/NON-VIABLE TISSUE. STATUS: CONTINUED DATE: 09/22/2024 04. OPTIMIZE GLUCOSE CONTROL AND NUTRITION : - ORDER/REVIEW PERTINENT LABS TO EVALUATE RENAL FUNCTION, GLUCOSE CONTROL, AND NUTRITIONAL STATUS. STATUS: CONTINUED DATE: 09/22/2024 - COMPLETE A NUTRITION RISK ASSESSMENT. STATUS: COMPLETED DATE: 08/25/2024 05. OFFLOADING PLAN : - EVALUATE PLAN FOR OFFLOADING STATUS: CONTINUED DATE: 09/22/2024 - ADVISE PATIENT TO OFFLOAD THE FOOT ULCER. (I.E. HALF SHOE, SURGICAL SHOE, INSERT, CUSTOM SHOE, FELT AND FOAM, CAM WALKER, MULTIPODUS SPLINT, TOTAL CONTACT CAST, BI-VALVE CAST, POSTERIOR SPLINT). STATUS: CONTINUED DATE: 09/22/2024 - ASSESS TOLERANCE AND COMPLIANCE OF OFFLOADING. STATUS: CONTINUED DATE: 09/22/2024 06. OPTIMIZE HOST FACTORS: - ASSESS AND REVIEW PATIENT HISTORY FOR WOUND ETIOLOGY, CO-MORBID CONDITIONS, MEDICATION REGIME, AND SMOKING HISTORY. STATUS: CONTINUED DATE: 09/22/2024 07. DRESSING SELECTION : - EVALUATE FOR DRESSING-RELATED FACTORS, SUCH AVAILABILITY, WEAR TIME, ADAPTABILITY AND USE TO BETTER OPTIMIZE WOUND HEALING AND PATIENT COMPLIANCE. STATUS: CONTINUED DATE: 09/22/2024 - EDUCATE THE PATIENT/FAMILY/CAREGIVER TO MONITOR DRESSING DAILY. CHANGE DRESSING ONLY NEEDED BUT NEVER LESS FREQUENTLY THAN WEEKLY SO THAT WOUND BED CAN BE REASSESSED. STATUS: CONTINUED DATE: 09/22/2024 08. ADVANCED MODALITIES : - RE-EVALUATE PLAN OF CARE IF NO EVIDENCE OF HEALING (40% IN 4 WEEKS). STATUS: CONTINUED DATE: 09/22/2024 09. FALL PREVENTION : - COMPLETE FALL ASSESSMENT. STATUS: COMPLETED DATE: 08/25/2024 10. PAIN MANAGEMENT : - COMPLETE PAIN ASSESSMENT STATUS: COMPLETED DATE: 08/25/2024 - INSTRUCT THE PATIENT TO CALL ?TIME-OUT? IF PAIN IS TOO INTENSE DURING PROCEDURE. STATUS: CONTINUED DATE: 09/22/2024 11. MEASURABLE GOALS FOR WOUND HEALING AND/OR HYPERBARIC OXYGEN THERAPY : - WOUND CLOSURE STATUS: CONTINUED DATE: 09/22/2024 12. DURATION/FREQUENCY OF WOUND CARE VISITS : - 1X WEEKLY FOR 30 DAYS STATUS: CONTINUED DATE: 09/22/2024 ELECTRONIC SIGNATURE(S) SIGNED BY: DATE: SNEHA ALVES [id number] 1960 ISHMAEL LEACH MD 09/29/2024 15:47:55 (PT) ENTERED BY: ISHMAEL LEACH MD ON 09/29/2024 15:35:34 (PT) SNEHA ALVES [id number] 1960
== END ==
PROVIDERS: PCP Family Medicine; Referring Provider Internal Medicine; Visit Provider Surgery
DX: E11.621 Type 2 diabetes mellitus with foot ulcer (principal); L97.512 Non-pressure chronic ulcer of other part of right foot with fat layer exposed; R60.0 Localized edema; L84 Corns and callosities; E11.40 Type 2 diabetes mellitus with diabetic neuropathy, unspecified
CPT/HCPCS: 11042

== ENCOUNTER → 2024-10-06 09:24 | Outpatient (CLI) | payer MEDICARE, SELFPAY ==
[2024-04-21 23:18] VITALS: BMI 28.5
== END ==
PROVIDERS: PCP Family Medicine; Referring Provider Internal Medicine; Visit Provider Surgery
DX: E11.628 Type 2 diabetes mellitus with other skin complications (principal); E11.42 Type 2 diabetes mellitus with diabetic polyneuropathy; L84 Corns and callosities; R60.0 Localized edema
CPT/HCPCS: 99213

== ENCOUNTER → 2024-10-06 09:46 | Outpatient (CLI) | payer MEDICARE, SELFPAY ==
[2024-04-21 23:18] VITALS: BMI 28.5
--- NOTE | 2024-10-12 15:41 | DIAB.FU ---
Follow-up Diabetes Education Assessment Name: Bg Trujillo Date: 10/06/24 Time: 49-3837p Dx: Diabetes Maximus presents for Dm visit with spouse, Anusha. States he has been bolusing more pre meal. Has questions about changing infusion set/reservoir/CGM. Had a low BG after filling canula with potentially too much insulin. much improved hgA1c of 7.3% Settings: 1:12 IC 1:46 ISF 2 hour active insulin Basal rate 0.65u/hr midnight to 8a and 0.75u/hr 8a to midnight TDD: 51.3u Self-Monitoring Blood Glucose: Increased hyperglycemia since last visit. seems related to not bolusing enough for carbs, ie 10-20g. TIR: 12% very high 29% high 59% in range 0% low 0% very low Av mg/dl GMI: 7.5% std deviation: 59mg/dl variance:33.4% Last TIR : 8% very high 28% high 64% in range 0% low 0% very low Av mg/dl GMI: 7.3% std deviation: 54mg/dl variance:32.2 % Diabetes Medications: 1000mg Metformin BID 15mg Actos Insulin via pump Pertinent Labs: HGA1c: 10.8% 05/2018 8.9% 12/2023 9.4% 04/2024 7.3% 09/2024 Past Medical History: Bladder cancer Carpal tunnel syndrome Chronic fatigue Colon polyps (06/10/17) Depression Diabetes (~1997) Diabetic polyneuropathy (09/24/17) Mike Mills MD, [facility] Family history of colon cancer Foot pain Hearing decreased Hypercholesterolemia Hypertension Hypothyroidism Myelofibrosis (~2017) Neuropathy Feet and hands Shoulder pain Intervention: This participant was very receptive. Provided appropriate educational handouts. Discussed the following topics: Review of changing equipment and filling canula Bolusing for meals review Created SMART goals for patient self-care and success. Goals: Use 30g for pancakes- met Continue with temp basal- met Leave cuate open- met Bolus for meals even when BG is in goal- met Fill canula when replacing infusion set- new Follow-up: JOEY THOMPSON follow-up in 1-2 weeks Evelyn Fry RDN, DONNA Certified Diabetes Care and Marine Equipment Research Engineer P: [phone] Thank you for this referral
== END ==
PROVIDERS: PCP Family Medicine; Referring Provider Family Medicine
DX: E11.65 Type 2 diabetes mellitus with hyperglycemia (principal); Z79.4 Long term (current) use of insulin; Z79.84 Long term (current) use of oral hypoglycemic drugs; Z96.41 Presence of insulin pump (external) (internal)
CPT/HCPCS: G0108

== ENCOUNTER → 2024-10-11 08:47 | Outpatient (CLI) | payer MEDICARE, SELFPAY ==
[2024-04-21 23:18] VITALS: BMI 28.5
== END ==
PROVIDERS: PCP Family Medicine; Referring Provider Family Medicine; Visit Provider Surgery
DX: Z86.31 Personal history of diabetic foot ulcer (principal); E11.40 Type 2 diabetes mellitus with diabetic neuropathy, unspecified
CPT/HCPCS: 99211; 99213

== ENCOUNTER → 2024-10-13 08:43 | Outpatient (CLI) | payer MEDICARE, SELFPAY ==
[2024-04-21 23:18] VITALS: BMI 28.5
--- NOTE | 2024-10-13 09:26 | DIAB.FU ---
Follow-up Diabetes Education Assessment Name: Bg Trujillo Date: 10/13/24 Time: 9-840a Dx: Diabetes Maximus presents for Dm visit with spouse, Anusha. Bolusing 30-40g at dinner but having elevations in the 300s. Endorses bread and potatoes at dinner. Likely under bolusing. Needing review of carb content of foods. Needing review of filling canula with infusion set change. Settings: 1:12 IC 1:46 ISF 2 hour active insulin Basal rate 0.65u/hr midnight to 8a and 0.75u/hr 8a to midnight Self-Monitoring Blood Glucose: TIR: 20% very high 29% high 51% in range 0% low 0% very low Av mg/dl GMI: 7.9% std deviation: 63mg/dl variance:33% Last TIR : 12% very high 29% high 59% in range 0% low 0% very low Av mg/dl GMI: 7.5% std deviation: 59mg/dl variance:33.4% Diabetes Medications: 1000mg Metformin BID 15mg Actos Insulin via pump Pertinent Labs: HGA1c: 10.8% 05/2018 8.9% 12/2023 9.4% 04/2024 7.3% 09/2024 Past Medical History: Bladder cancer Carpal tunnel syndrome Chronic fatigue Colon polyps (06/10/17) Depression Diabetes (~1997) Diabetic polyneuropathy (09/24/17) Mike Mills MD, [facility] Family history of colon cancer Foot pain Hearing decreased Hypercholesterolemia Hypertension Hypothyroidism Myelofibrosis (~2017) Neuropathy Feet and hands Shoulder pain Nutrition Rx: Carbohydrates: Meal: 45-60g Snack:15-30g Nutrition Diagnosis: - Nutrition and food related knowledge deficit r/t limited MNT aeb pt report - in progress - Predicted excessive CHO intake r/t refined CHO choices during work aeb pt report - in progress Intervention: This participant was very receptive. Provided appropriate educational handouts. Discussed the following topics: Review of changing equipment and filling canula Bolusing for meals review Etiology of elevations in evening Bolusing for snacks Carbs in foods he eats Created SMART goals for patient self-care and success. Goals: Fill canula to 0.6 when replacing infusion set- continue Try bolusing 60g at dinner- new Follow-up: JOEY THOMPSON follow-up in 2-3 weeks Evelyn Fry RDN, DONNA Certified Diabetes Care and Director Financial Analysis P: [phone] Thank you for this referral
== END ==
LOC: DIET 08:44
PROVIDERS: PCP Family Medicine; Referring Provider Family Medicine
DX: E11.42 Type 2 diabetes mellitus with diabetic polyneuropathy (principal); Z71.3 Dietary counseling and surveillance; Z79.4 Long term (current) use of insulin; Z96.41 Presence of insulin pump (external) (internal)
CPT/HCPCS: 97803

== ENCOUNTER → 2024-11-08 13:45 | Outpatient (CLI) | payer MEDICARE, SELFPAY ==
[2024-04-21 23:18] VITALS: BMI 28.5
--- NOTE | 2024-11-08 16:01 | DIAB.MNTFU ---
Follow-up Diabetes Medical Nutrition Therapy Assessment Name: Bg Trujillo Date: 11/08/24 Time: 2-230 Dx: Diabetes Maximus presents for Dm visit with spouse, Anusha. Bolusing 10-20g at dinner and having elevations in the 200-300s due to under bolusing high CHO meals. Upon further review, dinners are often 80-100g CHO per sitting. States he worries about lows <55mg/dl with bolusing at night, though states he has not had any lows recently. May also be under bolusing lunch, however he is very active at that time and alone. States he does not feel comfortable increasing bolusing at that time yet. Recent meals: Lunch corn dog with rice crispy treat Dinner: steak with potatoes, corn, salad, regular jello and 12oz milk OR small burger, fries, jello, apple sauce, salad, milk TDD: 36.7u Settings: 1:12 IC 1:46 ISF 2 hour active insulin Basal rate 0.65u/hr midnight to 8a and 0.75u/hr 8a to midnight Self-Monitoring Blood Glucose: TIR: 208% very high 30% high 62% in range 0% low 0% very low Av mg/dl GMI: 7.4% std deviation: 53mg/dl variance:31.5% Last TIR : 20% very high 29% high 51% in range 0% low 0% very low Av mg/dl GMI: 7.9% std deviation: 63mg/dl variance:33% Diabetes Medications: 1000mg Metformin BID 15mg Actos Insulin via pump Pertinent Labs: HGA1c: 10.8% 05/2018 8.9% 12/2023 9.4% 04/2024 7.3% 09/2024 Past Medical History: Bladder cancer Carpal tunnel syndrome Chronic fatigue Colon polyps (06/10/17) Depression Diabetes (~1997) Diabetic polyneuropathy (09/24/17) Mike Mills MD, [facility] Family history of colon cancer Foot pain Hearing decreased Hypercholesterolemia Hypertension Hypothyroidism Myelofibrosis (~2017) Neuropathy Feet and hands Shoulder pain Nutrition Rx: Carbohydrates: Meal: 45-60g Snack:15-30g Nutrition Diagnosis: - Excessive CHO intake r/t nutrition and food related knowledge deficit aeb pt under bolusing meals- new Intervention: This participant was very receptive. Provided appropriate educational handouts. Discussed the following topics: Carb counting Carb portion recommendations Insulin patterns with pump Created SMART goals for patient self-care and success. Goals: Fill canula to 0.6 when replacing infusion set- met Try bolusing 60g at dinner- not met Try bolusing 50-60g at dinner- new Follow-up: JOEY THOMPSON follow-up in 2-3 weeks Evelyn Fry RDN, DONNA Certified Diabetes Care and [employer] P: [phone] Thank you for this referral
== END ==
PROVIDERS: PCP Family Medicine; Referring Provider Family Medicine
DX: E11.42 Type 2 diabetes mellitus with diabetic polyneuropathy (principal); Z79.84 Long term (current) use of oral hypoglycemic drugs; Z79.4 Long term (current) use of insulin; Z96.41 Presence of insulin pump (external) (internal)
CPT/HCPCS: 97803

== ENCOUNTER → 2024-12-02 08:51 | Outpatient (CLI) | payer MEDICARE, SELFPAY ==
[2024-04-21 23:18] VITALS: BMI 28.5
--- NOTE | 2024-12-08 11:39 | DIAB.MNTFU ---
Addendum entered by Evelyn Fry 12/09/24 14:27: Called and spoke with Maximus's , Anusha. Maximus is not home. Discussed changing SmartGuard Target to recommended target from 110 to 100mg/dl. Original Note: Follow-up Diabetes Medical Nutrition Therapy Assessment Name: Bg Truj[place] Date: 12/02/24 Time: 815-590a Dx: Type II Diabetes Maximus presents for Dm visit with spouse, Anusha. States he is having such infrequent lows now that he may have to give away the excess juice in his house. Overall, enjoying 780g insulin pump. settings still at 120mg/dl target, so we changed to 110mg/dl. States he is still receiving CGM from [facility]. Skipping bolus for breakfast often but having a poptart or other convenience food at that time, subsequent hyperglycemia. Also continues to under bolus at dinner time. Max dose is 40g at dinner, but dinners are often 80-100g CHO per night. Worries about lows if he boluses more, however he is often having elevated BG after dinner r/t under bolusing. TDD: 39.2u Settings: 1:12 IC 1:46 ISF Target 110mg/dl Self-Monitoring Blood Glucose: Similar TIR with some excessive hyperglycemia and under goal of 70% time in goal. TIR: 8% very high 30% high 62% in range 0% low 0% very low Av mg/dl GMI: 7.6% std deviation: 54mg/dl variance:% Last TIR : 8% very high 30% high 62% in range 0% low 0% very low Av mg/dl GMI: 7.4% std deviation: 53mg/dl variance:31.5% Diabetes Medications: 1000mg Metformin BID 15mg Actos Insulin via pump Pertinent Labs: HGA1c: 10.8% 05/2018 8.9% 12/2023 9.4% 04/2024 7.3% 09/2024 Past Medical History: Bladder cancer Carpal tunnel syndrome Chronic fatigue Colon polyps (06/10/17) Depression Diabetes (~1997) Diabetic polyneuropathy (09/24/17) Mike Mills MD, [facility] Family history of colon cancer Foot pain Hearing decreased Hypercholesterolemia Hypertension Hypothyroidism Myelofibrosis (~2017) Neuropathy Feet and hands Shoulder pain Nutrition Rx: Carbohydrates: Meal: 45-60g Snack:15-30g Nutrition Diagnosis: - Excessive CHO intake r/t nutrition and food related knowledge deficit aeb pt under bolusing meals- continued Intervention: This participant was very receptive. Provided appropriate educational handouts. Discussed the following topics: bolusing 50g Carb portion recommendations simple vs complex CHO Target BG goal in 780g and adjusting to recommended target of 100mg/dl evenutally Troubleshooting d/c of [employer] shipment Covering breakfast carbs Amt CHO he is bolusing vs eating Created SMART goals for patient self-care and success. Goals: Try bolusing 50-60g at dinner- not met Try 50g at dinner for bolusing- new Try 10g at breakfast for bolusing- new Call [facility]- new Follow-up: JOEY THOMPSON follow-up in 4-6 weeks Evelyn Fry RDN, DONNA Certified Diabetes Care and [employer] Operator P: [phone] Thank you for this referral
== END ==
PROVIDERS: PCP Family Medicine; Referring Provider Family Medicine
DX: E11.65 Type 2 diabetes mellitus with hyperglycemia (principal); Z71.3 Dietary counseling and surveillance; Z96.41 Presence of insulin pump (external) (internal); Z79.84 Long term (current) use of oral hypoglycemic drugs; Z79.4 Long term (current) use of insulin
CPT/HCPCS: 97803

== ENCOUNTER → 2025-01-10 08:48 | Outpatient (CLI) | payer MEDICARE, SELFPAY ==
[2024-04-21 23:18] VITALS: BMI 28.5
--- NOTE | 2025-01-10 08:58 | DIAB.MNTFU ---
Follow-up Diabetes Medical Nutrition Therapy Assessment Name: Bg Truj[place] Date: 01/10/25 Time: 9-950a Dx: Diabetes Maximus presents for Dm visit with spouse, Anusha. Target now at 100mg/dl. Reports trying to bolus more CHo at dinner since our last visit, up to 50g. Sometimes forgetting to bolus for evening snacks per report. Cannot connect pump to cuate since reset with [employer] per report. Continues to have much improved BG. Predicted to continue higher CHO intake per report. Pump reported BG >250mg/dl x 3 hours in clinic today. States he has received these alerts in the past. Last pump upload from 12/20/24 TDD: 38.3u Settings: 1:10 IC 1:46 ISF Target 100mg/dl Self-Monitoring Blood Glucose: Improved TIR with now in goal TIR. Last pump upload from 12/20/24 TIR: 3% very high 25% high 72% in range 0% low 0% very low Av mg/dl GMI: 7.1% std deviation: 44mg/dl variance:% Last TIR : 8% very high 30% high 62% in range 0% low 0% very low Av mg/dl GMI: 7.6% std deviation: 54mg/dl variance:% Diabetes Medications: 1000mg Metformin BID 15mg Actos Insulin via pump Pertinent Labs: HGA1c: 10.8% 05/2018 8.9% 12/2023 9.4% 04/2024 7.3% 09/2024 Past Medical History: Bladder cancer 1989'sCarpal tunnel syndrome Chronic fatigue Colon polyps (06/10/17) Depression Diabetes (~1997) Diabetic polyneuropathy (09/24/17) [facility] of [facility] Foot pain Hearing decreased Hypercholesterolemia Hypertension Hypothyroidism Myelofibrosis (~2017) Neuropathy Feet and handsShoulder pain Nutrition Rx: Carbohydrates: Meal: 45-60gSnack:15-30g Nutrition Diagnosis: - Excessive CHO intake r/t nutrition and food related knowledge deficit aeb pt under bolusing meals/snacks - continued Intervention: This participant was very receptive. Provided appropriate educational handouts. Discussed the following topics: bolusing behaviors CHO in foods Ketone testing and potential for infusion set delivery issues Troubleshooting pump connection to cuate Physical activity Created SMART goals for patient self-care and success. Goals: Try 50g at dinner for bolusing- met Try 10g at breakfast for bolusing- met Call [facility]- met Bolus for HS snacks consistently- new Follow-up: JOEY THOMPSON follow-up in 3 months. PCP in January. Evelyn Fry RDN, DONNA Certified Diabetes Care and [employer] P: [phone] Thank you for this referral
== END ==
PROVIDERS: PCP Family Medicine; Referring Provider Family Medicine
DX: E11.9 Type 2 diabetes mellitus without complications (principal); Z79.84 Long term (current) use of oral hypoglycemic drugs; Z79.4 Long term (current) use of insulin; Z96.41 Presence of insulin pump (external) (internal); Z71.3 Dietary counseling and surveillance
CPT/HCPCS: G0270

== ENCOUNTER → 2025-02-06 08:12 | Outpatient (CLI) | payer MEDICARE, SELFPAY ==
[2024-04-21 23:18] VITALS: BMI 28.5
[2025-02-06 09:26] LABS: Hemoglobin A1C% w Est Avg Glu 7.1 % (4.0-6.0)
[2025-02-06 09:34] LABS: Alanine Aminotransferase 18 IU/L (<50); Albumin 4.2 g/dL (3.5-5.0); Albumin Globulin Ratio 1.7 (1.0-2.8); Alkaline Phosphatase 55 U/L (38-126); Blood Urea Nitrogen 18 mg/dL (9-20); Calcium 9.1 mg/dL (8.4-10.2); Carbon Dioxide 30 mmol/L (22-32); Chloride 100 mmol/L (98-107); Estimated Glomerular Filt Rate > 60 mL/min (>60); Globulin 2.5 g/dL (1.7-4.1); Glucose 130 mg/dL (70-99); HEMOLYSIS < 15 (0-50); Potassium 3.9 mmol/L (3.4-5.1); Sodium 136 mmol/L (137-145); Total Protein 6.7 g/dL (6.3-8.2)
== END ==
PROVIDERS: PCP Family Medicine; Referring Provider Family Medicine; Visit Provider Family Medicine
DX: E11.42 Type 2 diabetes mellitus with diabetic polyneuropathy (principal); I10 Essential (primary) hypertension; Z79.4 Long term (current) use of insulin
CPT/HCPCS: 36415; 80053; 83036

== ENCOUNTER → 2025-04-11 08:46 | Outpatient (CLI) | payer MEDICARE, SELFPAY ==
[2024-04-21 23:18] VITALS: BMI 28.5
--- NOTE | 2025-04-11 08:58 | DIAB.MNTFU ---
Follow-up Diabetes Medical Nutrition Therapy Assessment Name: Bg Truj[place] Date: 04/11/25 Time: 9-930a Dx: Diabetes Maximus presents for Dm visit with spouse, Anusha. HgA1c continues to improve, last result 7.1% 01/2025. Reports continued hesitation to bolus higher than 40g per meal, despite meals often being >60g CHO in the evening. Sometimes forgetting morning bolusing. States he is now bolusing for HS snack. Connected phone cuate to pump/CGM now. Anusha is having a hard time connecting. Getting eye check at PCP tomorrow. 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 TDD: 38.3u---- 35.7u Settings: 1:10 IC 1:46 ISF Target 100mg/dl Self-Monitoring Blood Glucose: Time in range meeting goal, however having excessive tiem >250mg/dl recently with under bolusing. Overall, doing very well. Some days having 80-90% in range time with very limited lows. TIR: 8% very high 23% high 69% in range 0% low 0% very low Av mg/dl GMI: 7.3% std deviation: 55mg/dl variance:33.2% Last TIR : 3% very high 25% high 72% in range 0% low 0% very low Av mg/dl GMI: 7.1% std deviation: 44mg/dl variance:% Diabetes Medications: 1000mg Metformin BID 15mg Actos Insulin via pump Pertinent Labs: HGA1c: 10.8% 05/2018 8.9% 12/2023 9.4% 04/2024 7.3% 09/2024 7.1% 01/2025 Past Medical History: Bladder cancer sCarpal tunnel syndrome Chronic fatigue Colon polyps (06/10/17) Depression Diabetes (~1997) Diabetic polyneuropathy (09/24/17) Mike Mills MD, SVFamily history of colon cancer Foot pain Hearing decreased Hypercholesterolemia Hypertension Hypothyroidism Myelofibrosis (~2017) Neuropathy Feet and handsShoulder pain Nutrition Rx: Carbohydrates: Meal: 45-60gSnack:15-30g Nutrition Diagnosis: - Excessive CHO intake r/t nutrition and food related knowledge deficit aeb pt under bolusing meals/snacks - continued Intervention: This participant was very receptive. Provided appropriate educational handouts. Discussed the following topics: bolusing behaviors CHO in foods Troubleshooting pump connection to cuate Lows and tx of lows New CGM sensor coming out and features, ie 15 day wear DM complication reduction Created SMART goals for patient self-care and success. Goals: Bolus for HS snacks consistently- met Try to bolus more for larger CHO meals- new Make eye appt- new Follow-up: JOEY THOMPSON follow-up for new sensor education prn and then in 6 months for check in Evelyn Fry RDN, DONNA Certified Diabetes Care and D[employer] Box Operator P: [phone] Thank you for this referral
== END ==
LOC: DIET 08:46
PROVIDERS: PCP Family Medicine; Referring Provider Family Medicine
DX: E11.9 Type 2 diabetes mellitus without complications (principal); Z96.41 Presence of insulin pump (external) (internal); Z71.3 Dietary counseling and surveillance; Z79.84 Long term (current) use of oral hypoglycemic drugs; Z79.4 Long term (current) use of insulin
CPT/HCPCS: G0270

== ENCOUNTER → 2025-05-15 07:50 | Outpatient (CLI) | payer MEDICARE, SELFPAY ==
[2024-04-21 23:18] VITALS: BMI 28.5
[2025-05-15 08:19] LABS: Add Manual Diff / Slide Review NO; Hematocrit 40.8 % (41-53); Hemoglobin 13.7 g/dL (13.5-17.5); Lymphocytes Absolute Auto 2400 /uL (1100-4500); Mean Corpuscular HGB Conc 33.7 % (30-36); Mean Corpuscular Hemoglobin 29.9 PG (26-34); Mean Corpuscular Volume 88.7 fL (80-100); Platelet Count 280 X10^3/uL (150-400)
[2025-05-15 08:28] LABS: Hemoglobin A1C% w Est Avg Glu 7.6 % (4.0-6.0)
[2025-05-15 08:38] LABS: Alanine Aminotransferase 21 IU/L (<50); Albumin 4.2 g/dL (3.5-5.0); Albumin Globulin Ratio 1.7 (1.0-2.8); Alkaline Phosphatase 54 U/L (38-126); Blood Urea Nitrogen 17 mg/dL (9-20); Calcium 9.3 mg/dL (8.4-10.2); Carbon Dioxide 27 mmol/L (22-32); Chloride 102 mmol/L (98-107); Estimated Glomerular Filt Rate > 60 mL/min (>60); Globulin 2.5 g/dL (1.7-4.1); Glucose 139 mg/dL (70-99); HEMOLYSIS < 15 (0-50); Potassium 4.0 mmol/L (3.4-5.1); Sodium 137 mmol/L (137-145); Total Protein 6.7 g/dL (6.3-8.2)
[2025-05-15 09:30] LABS: Vitamin B12 467 pg/mL (239-931)
== END ==
PROVIDERS: PCP Family Medicine; Referring Provider Family Medicine; Visit Provider Family Medicine
DX: E11.42 Type 2 diabetes mellitus with diabetic polyneuropathy (principal); Z79.4 Long term (current) use of insulin; I10 Essential (primary) hypertension; D50.8 Other iron deficiency anemias
CPT/HCPCS: 36415; 80053; 82607; 83036; 85025